=== PATIENT | female | born 1995 | race Caucasian/White ===

== ENCOUNTER 2022-09-03 08:59 | Outpatient (OUT) | payer OTHER, SELFPAY ==
--- NOTE | 2022-09-03 09:13 | XR_ITS ---
[address] [address] Patient Name: ELLIOTT RANDALL MRN: [id number] date: 1995 Sex: F Assigned Patient Location: [facility] Current Patient Location: [facility] Accession/Order Number: [id number] Exam Date: 09/03/2022 09:13 Report Date: 09/03/2022 13:08 At the request of: YUE SALAS Procedure: XR foot RT min 3V EXAM: XR foot RT min 3V HISTORY: RIGHT FOOT PAIN COMPARISON: None. TECHNIQUE: AP, oblique and lateral views right foot IMPRESSION: 1. No acute fracture or malalignment. 2. No articular erosions. 3. No periosteal reaction or osteolysis. 4. No significant degenerative change. Electronically authenticated by: KATHY LIU Date: 09/03/2022 13:08
== END 2022-09-03 09:00 | disposition home or self-care (01) ==
LOC: RAD 08:59
PROVIDERS: Visit Provider Physician Assistant
DX: M79.671 Pain in right foot (principal)
CPT/HCPCS: 73630

== ENCOUNTER 2022-09-24 13:36 | Outpatient (OUT) | payer OTHER, SELFPAY ==
--- NOTE | 2022-09-24 13:39 | XR_ITS ---
[address] [address] Patient Name: ELLIOTT RANDALL MRN: [id number] date: 1995 Sex: F Assigned Patient Location: [facility] Current Patient Location: [facility] Accession/Order Number: [id number] Exam Date: 09/24/2022 13:39 Report Date: 09/24/2022 19:00 At the request of: YUE SALAS Procedure: XR foot RT min 3V PROCEDURE: XR foot RT min 3V COMPARISON: 09/03/2022 HISTORY: RIGHT FOOT PAIN FINDINGS: BONES:No fracture, acute abnormality, or significant arthropathy. SOFT TISSUES:Negative. No visible soft tissue swelling. EFFUSION:None visible. OTHER: Negative. XR/XR foot RT min 3V IMPRESSION: No acute disease. Electronically authenticated by: INDIGO TITUS Date: 09/24/2022 19:00
== END 2022-09-24 13:37 | disposition home or self-care (01) ==
LOC: RAD 13:36
PROVIDERS: Visit Provider Physician Assistant
DX: M84.374S Stress fracture, right foot, sequela (principal)
CPT/HCPCS: 73630

== ENCOUNTER 2022-10-03 13:25 | Outpatient (OUT) | payer OTHER, SELFPAY ==
--- NOTE | 2022-10-03 14:15 | MR_ITS ---
The [address] [address] Patient Name: ELLIOTT RANDALL MRN: [id number] date: 1995 Sex: F Assigned Patient Location: MRI Current Patient Location: MRI Accession/Order Number: [id number] Exam Date: 10/03/2022 14:15 Report Date: 10/03/2022 18:39 At the request of: YUE SALAS Procedure: MR foot RT wo con EXAM: MR foot RT wo con HISTORY: Lateral foot pain COMPARISON: X-rays 09/24/2022 and 09/03/2022 TECHNIQUE: Multiplanar, multi sequential MRI sequences were performed FINDINGS: This study is limited as fluid sensitive sequencing was only performed in the sagittal projection per podiatry protocol. No fracture, dislocation, subluxation or osseous lesion. No bone marrow edema. Joint spaces are normal. No joint effusion, synovitis or erosion. The superficial subcutaneous soft tissues are free of edema, hematoma, mass or cyst. The articular cartilage exhibits no chondral or osteochondral irregularity. The visualized muscles exhibit no gross edema, hematoma, mass or cyst. The visualized tendons exhibit no discrete thickening, tear or edema.. The plantar aponeurosis exhibits no thickening, tear or edema. The sinus tarsi and Achilles tendon are normal. MR/MR foot RT wo con IMPRESSION: No visualized abnormality. Electronically authenticated by: INDIGO PATTERSON Date: 10/03/2022 18:39
== END 2022-10-03 13:26 | disposition home or self-care (01) ==
LOC: MRI 13:26
PROVIDERS: Visit Provider Physician Assistant
DX: M84.374S Stress fracture, right foot, sequela (principal)
CPT/HCPCS: 73718

== ENCOUNTER 2022-11-05 09:52 | Outpatient (OUT) | payer OTHER, SELFPAY ==
--- NOTE | 2022-11-05 | XR_ITS ---
The [address] [address] Patient Name: ELLIOTT RANDALL MRN: [id number] date: 1995 Sex: F Assigned Patient Location: [facility] Current Patient Location: [facility] Accession/Order Number: [id number] Exam Date: 11/05/2022 10:13 Report Date: 11/05/2022 12:27 At the request of: YUE SALAS Procedure: XR foot RT min 3V STUDY: XR foot RT min 3V, [id number] HISTORY: 4 WEEK FOLLOW UP FOR RIGHT FOOT PAIN COMPARISON: Right foot x-ray 09/24/2022 and right foot MRI 10/03/2022. FINDINGS: No acute fracture, dislocation, or suspicious osseous lesion. No significant joint degenerative changes. No abnormal periosteal reaction to suggest stress fracture. A small os peroneum is present. XR/XR foot RT min 3V IMPRESSION: No new or worsening osseous abnormality demonstrated. Electronically authenticated by: TRACY ELLIS Date: 11/05/2022 12:27
== END 2022-11-05 09:53 | disposition home or self-care (01) ==
LOC: RAD 09:52
PROVIDERS: Visit Provider Physician Assistant
DX: M77.41 Metatarsalgia, right foot (principal)
CPT/HCPCS: 73630

== ENCOUNTER 2023-04-08 20:01 | Outpatient (REF) | payer OTHER, SELFPAY ==
[2023-04-12 14:10] LABS: Age Gdln ACOG Testing Note (.); IGP, rfx Aptima HPV ASCU Note (.)
== END 2023-04-08 20:02 | disposition home or self-care (01) ==
LOC: LAB 20:01
PROVIDERS: Visit Provider Obstetrics & Gynecology
DX: Z01.419 Encounter for gynecological examination (general) (routine) without abnormal findings (principal)
CPT/HCPCS: G0145

== ENCOUNTER 2023-07-01 14:05 | Outpatient (OUT) | payer OTHER, SELFPAY ==
--- NOTE | 2023-07-01 | XR_ITS ---
The [address] [address] Patient Name: ELLIOTT RANDALL MRN: [id number] date: 1995 Sex: F Assigned Patient Location: Current Patient Location: Accession/Order Number: [id number] Exam Date: 07/01/2023 14:05 Report Date: 07/01/2023 16:21 At the request of: ERIKA EDMONDSON Procedure: XR foot LT min 3V PROCEDURE: XR foot LT min 3V COMPARISON: None. HISTORY: LEFT FOOT PAIN FINDINGS: BONES:No fracture, acute abnormality, or significant arthropathy. SOFT TISSUES:Negative. No visible soft tissue swelling. EFFUSION:None visible. OTHER: Negative. XR/XR foot LT min 3V IMPRESSION: No acute radiographic abnormality Electronically authenticated by: INDIGO TITUS Date: 07/01/2023 16:21
== END 2023-07-01 14:06 | disposition home or self-care (01) ==
LOC: EC 14:05
PROVIDERS: Visit Provider Podiatrist Foot & Ankle Surgery
DX: M79.672 Pain in left foot (principal)
CPT/HCPCS: 73630

== ENCOUNTER 2023-08-26 15:21 | Outpatient (OUT) | payer OTHER, SELFPAY ==
--- NOTE | 2023-08-26 | MR_ITS ---
The [address] [address] Patient Name: ELLIOTT RANDALL MRN: [id number] date: 1995 Sex: F Assigned Patient Location: MRI Current Patient Location: Accession/Order Number: [id number] Exam Date: 08/26/2023 15:50 Report Date: 08/28/2023 10:59 At the request of: YUE SALAS Procedure: MR foot LT wo con EXAM: MR foot LT wo con REASON FOR EXAM: Stress fracture Left foot. TECHNIQUE: Multiplanar, multisequence imaging of the left foot was performed without contrast COMPARISON: Radiographs 07/01/2023. FINDINGS: Study degraded by motion. The bone marrow signal is without acute displaced fracture. There is linear signal involving the second metatarsal proximal diaphysis (series 8/9, image 8), this could reflect a stress fracture. However, no significant marrow edema is identified and no significant periosteal edema identified. The midfoot appears congruent. Lisfranc ligament is intact. The visualized ankle tendons appear intact. No evidence of acute ligamentous injury identified. The plantar musculature demonstrates normal bulk and signal. Remaining soft tissues are unremarkable. MR/MR foot LT wo con IMPRESSION: 1. Linear signal involving the proximal second metatarsal base could reflect a stress fracture, although no significant edema is identified. 2. Intact Lisfranc ligament. Electronically authenticated by: SASHA LO Date: 08/28/2023 10:59
== END 2023-08-26 15:22 | disposition home or self-care (01) ==
LOC: MRI 15:22
PROVIDERS: Visit Provider Physician Assistant
DX: M84.375A Stress fracture, left foot, initial encounter for fracture (principal)
CPT/HCPCS: 73718

== ENCOUNTER 2024-05-07 06:40 | Outpatient (OUT) | payer OTHER, SELFPAY ==
--- OUTSIDE RECORDS SUMMARY | 2024-05-07 06:43 | XMS_ITS | CCD ---
Author Organization [facility] Care Team Providers Care Dollyman Name Role Phone JEREMY ., DR SANTORO Admitting Unavailable JEREMY ., DR SANTORO Attending Unavailable JENNIFER ., DR CORTEZ Primary Care Unavailable JEREMY ., DR SANTORO Consulting Unavailable NIKOLAY, DR MASOOD Narayanan Consulting Unavailable NATAPRAWIRA, WARD Admitting Unavailable NATAPRAWIRA, WARD Attending Unavailable JENNIFER ., DR CORTEZ Primary Care Unavailable NATAPRYAKOV, WARD Consulting Unavailable NATAPRAWIRA, WARD Admitting Unavailable NATADRIRA, WARD Attending Unavailable JENNIFER ., DR CORTEZ Primary Care Unavailable NATAPRAWIRA, WARD Consulting Unavailable Chino Bangura MD Primary Care Provider [phone] SARITA APPIAH Referring Unavailable SARITA APPIAH Attending Unavailable SARITA APPIAH Referring Unavailable Medications Completed/Discontinued Medications Medication Drug Class(es) Dates Sig (Normalized) Sig (Original) labetalol hydrochloride 200 mg oral tablet (2 sources) beta-Adrenergic Adonis End: 04-08-2023 labetalol (Normodyne) 200 MG tablet every 12 (twelve) hours. 0 04/08/2023 Discontinued meloxicam 15 mg oral tablet (2 sources) Nonsteroidal Anti-inflammatory Drug Start: 09-03-2022 End: 04-08-2023 take 1 tablet by mouth in the morning meloxicam (Mobic) 15 MG tablet Take 15 mg by mouth in the morning. 0 09/03/2022 04/08/2023 Discontinued Vit-DSS-Fe Fum-FA (PNV FE FUM/DOCUSATE/FOLIC ACID PO) (2 sources) End: 04-08-2023 Vit-DSS-Fe Fum-FA (PNV FE FUM/DOCUSATE/FOLI C ACID PO) PNV 0 04/08/2023 Discontinued venlafaxine 75 mg oral tablet (2 sources) Serotonin and Norepinephrine Reuptake Inhibitor End: 04-08-2023 venlafaxine (Effexor) 75 MG tablet 1 (one) time each day at the same time. 0 04/08/2023 Discontinued Problems Problem Classification Problem Date Documented Da te Episodic/Chronic Diabetes or abnormal glucose tolerance complicating ; childbirth; or the puerperium (4 sources) Abnormal glucose complicating ; Translations: [ABNORMAL GLUCOSE COMP ] Onset: 06-06-2022 Episodic Other non-traumatic joint disorders (2 sources) Pain in right knee; Translations: [Pain in joint, lower leg] 04-07-2024 Episodic Other and delivery including normal (4 sources) Encounter for supervision of normal , unspecified, second trimester; Translations: [ENC SUP NORMAL PREG UNS SECOND TRI] Onset: 05-28-2022 Episodic Other screening for suspected conditions (not mental disorders or infectious disease) (1 source) Encounter for screening for diabetes mellitus; Translations: [ENCOUNTER FOR SCREENING FOR DM] Onset: 06-01-2022 Episodic Results Test Name Value Interpretation Reference Range Facility XR Knee - right 3 [facility] Result: X-rays, permanently saved to the patient's record, are reviewed show 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 There is no acute fracture, dislocation, or OCD present. This is multiple views saved to the permanent record in the [place] office, AP, lateral and sunrise views. [facility] XR Knee - right 3 [facility] Study observation (narrative) [facility] IGP,APTIMA HPV,AGE GDLNon AGE GDLN ACOG TESTING Note . [facility] Comment on above: TESTS RESULT FLAG UN ITS REF RANGE LAB Clinician Provided Cytology Information Source.............Cervix No. of containers..01 ThinPrep Vial Age Algo ACOG Kimberly... FLAG LEGEND: L-Low Normal,H-High Normal,LL-Alert Low,HH-Alert High <-Panic Low,>-Panic High,A-Abnormal,AA-Critical Abnormal Performed at: 01 =G [address] [id number] Lisbet Rahman MD, IGP, RFX APTIMA HPV ASCU Note . [facility] Comment on above: TESTS RESULT FLAG U NITS REF RANGE LAB DIAGNOSIS: 02 NEGATIVE FOR INTRAEPITHELIAL LESION OR MALIGNANCY. Specimen adequacy: 02 Satisfactory for evaluation. No endocervical component is identified. Performed by: Derek Schreiber Denier Control Operator (ASC) . 02 Note: Note 02 The Pap smear is a screening test designed to aid in the detection of premalignant and malignant conditions of the uterine cervix. It is not a diagnostic procedure and should not be used as the sole means of detecting cervical cancer. Both false-positive and false-negative reports do occur. Test Methodology: Note 02 This liquid based ThinPrep(R) pap test was screened with the use of an image guided system. . 02 The HPV DNA reflex criteria were not met with this specimen result therefore, no HPV testing was performed. FLAG LEGEND: L-Low Normal,H-High Normal,LL-Alert Low,HH-Alert High <-Panic Low,>-Panic High,A-Abnormal,AA-Critical Abnormal Performed at: [address] [facility] [address] [id number] Lisbet Rahman MD, Performed at: =G - [facility] [address] [id number] Clinical Neuropsychologist: Lisbet Rahman MD, Phone: [phone] Performed at: - [facility] [address] [id number] Clinical Neuropsychologist: Lisbet Rahman MD, Phone: [phone] BRUSH-SPATULA CERVIX [facility] CBC AUTO DIFFon 07-20-2022 BASO # 0.1 103/ul Normal 0.0-0.1 [facility] Comment on above: Performed By: #### C BC #### [facility] [address] [place] [address] Dr. Gerardo Joshua Basophils/100 WBC (Bld) 0.5 % Normal 0.2-2.0 [facility] Comment on above: Performed By: #### C BC #### [facility] [address] [place] [address] Dr. Gerardo Joshua EO # 0.2 103/ul Normal 0.0-0.7 [facility] Comment on above: Performed By: #### C BC #### [facility] [address] [place] [address] Dr. Gerardo Joshua Eosinophils/100 WBC (Bld) 1.4 % Normal 0.9-7.0 [facility] Comment on above: Performed By: #### C BC #### [facility] [address] [place] [address] Dr. Gerardo Joshua Erythrocyte distribution width (RBC) [Ratio] 12.8 % Normal 11.0-15.0 [facility] Comment on above: Performed By: #### C BC #### [facility] [address] [place] [address] Dr. Gerardo Joshua Hematocrit (Bld) [Volume fraction] 37.3 % Normal 36.0-48.0 [facility] Comment on above: Performed By: #### C BC #### [facility] [address] [place] [address] Dr. Gerardo Joshua Hemoglobin (Bld) [Mass/Vol] 12.7 g/dL Normal 12.0-16.0 [facility] Comment on above: Performed By: #### C BC #### [facility] [address] [place] [address] Dr. Gerardo Joshua IG # 0.06 10e3/ul Critically high 0.00-0.03 [facility] Comment on above: Performed By: #### C BC #### [facility] [address] [place] [address] Dr. Gerardo Joshua IG % 0.5 % Normal 0.0-0.5 [facility] Comment on above: Performed By: #### C BC #### [facility] [address] [place] [address] Dr. Gerardo Joshua LYMPH # 2.3 103/ul Normal 1.2-3.8 [facility] Comment on above: Performed By: #### C BC #### [facility] [address] [place] [address] Dr. Gerardo Joshua Lymphocytes/100 WBC (Bld) 18.4 % Critically low 20.5-60.0 [facility] Comment on above: Performed By: #### C BC #### [facility] [address] [place] [address] Dr. Gerardo Joshua MANUAL DIFF REQ NO Normal [facility] Comment on above: Performed By: #### C BC #### [facility] [address] [place] [address] Dr. Gerardo Joshua MCH (RBC) [Entitic mass] 30.6 pg Normal 26.7-34.0 [facility] Comment on above: Performed By: #### C BC #### [facility] [address] [address] [address] Gerardo Joshua MCHC (RBC) [Mass/Vol] 34.0 g/dL Normal 29.9-35.2 [facility] Comment on above: Performed By: #### C BC #### [facility] [address] [address] [address] Gerardo Joshua MCV (RBC) [Entitic vol] 89.9 fL Normal 81.0-99.0 [facility] Comment on above: Performed By: #### C BC #### [facility] [address] [address] [address] Gerardo Joshua MONO # 0.9 103/ul Critically high 0.3-0.8 [facility] Comment on above: Performed By: #### C BC #### [facility] [address] [address] [address] Gerardo Joshua Monocytes/100 WBC (Bld) 7.3 % Normal 1.7-12.0 [facility] Comment on above: Performed By: #### C BC #### [facility] [address] [address] [address] Gerardo Joshua NEUT # 8.9 103/ul Critically high 1.4-6.5 [facility] Comment on above: Performed By: #### C BC #### [facility] [address] [address] [address] Gerardo Joshua Neutrophils/100 WBC (Bld) 71.9 % Normal 43.0-75.0 [facility] Comment on above: Performed By: #### C BC #### [facility] [address] [address] [address] Gerardo Joshua Platelet mean volume (Bld) [Entitic vol] 10.2 fL Normal 9.5-13.5 [facility] Comment on above: Performed By: #### C BC #### [facility] [address] [address] [address] Gerardo Joshua PLT 199 103/ul Normal 150-450 [facility] Comment on above: Performed By: #### C BC #### [facility] [address] [address] [address] Gerardo Joshua RBC 4.15 106/ul Critically low 4.20-5.40 [facility] Comment on above: Performed By: #### C BC #### [facility] [address] [address] [address] Gerardo Joshua WBC 12.4 103/ul Critically high 4.0-11.0 [facility] Comment on above: Performed By: #### C BC #### [facility] [address] [place] [address] Dr. Gerardo Joshua CBC AUTO DIFFon 07-19-2022 BASO # 0.0 103/ul Normal 0.0-0.1 [facility] Comment on above: Performed By: #### C BC #### [facility] [address] [place] [address] Dr. Gerardo Joshua Basophils/100 WBC (Bld) 0.4 % Normal 0.2-2.0 [facility] Comment on above: Performed By: #### C BC #### [facility] [address] [place] [address] Dr. Gerardo Joshua EO # 0.2 103/ul Normal 0.0-0.7 [facility] Comment on above: Performed By: #### C BC #### [facility] [address] [place] [address] Dr. Gerardo Joshua Eosinophils/100 WBC (Bld) 1.4 % Normal 0.9-7.0 [facility] Comment on above: Performed By: #### C BC #### [facility] [address] [place] [address] Dr. Gerardo Joshua Erythrocyte distribution width (RBC) [Ratio] 12.7 % Normal 11.0-15.0 [facility] Comment on above: Performed By: #### C BC #### [facility] [address] [place] [address] Dr. Gerardo Joshua Hematocrit (Bld) [Volume fraction] 41.6 % Normal 36.0-48.0 [facility] Comment on above: Performed By: #### C BC #### [facility] [address] [address] [address] Gerardo Joshua Hemoglobin (Bld) [Mass/Vol] 14.0 g/dL Normal 12.0-16.0 [facility] Comment on above: Performed By: #### C BC #### [facility] [address] [address] [address] Gerardo Joshua IG # 0.07 10e3/ul Critically high 0.00-0.03 [facility] Comment on above: Performed By: #### C BC #### [facility] [address] [address] [address] Gerardo Joshua IG % 0.7 % Critically high 0.0-0.5 [facility] Comment on above: Performed By: #### C BC #### [facility] [address] [address] [address] Gerardo Joshua LYMPH # 2.1 103/ul Normal 1.2-3.8 [facility] Comment on above: Performed By: #### C BC #### [facility] [address] [address] [address] Gerardo Joshua Lymphocytes/100 WBC (Bld) 19.2 % Critically low 20.5-60.0 [facility] Comment on above: Performed By: #### C BC #### [facility] [address] [address] [address] Gerardo Joshua MANUAL DIFF REQ NO Normal [facility] Comment on above: Performed By: #### C BC #### [facility] [address] [address] [address] Gerardo Joshua MCH (RBC) [Entitic mass] 30.0 pg Normal 26.7-34.0 [facility] Comment on above: Performed By: #### C BC #### [facility] [address] [address] [address] Gerardo Joshua MCHC (RBC) [Mass/Vol] 33.7 g/dL Normal 29.9-35.2 [facility] Comment on above: Performed By: #### C BC #### [facility] [address] [address] [address] Gerardo Joshua MCV (RBC) [Entitic vol] 89.3 fL Normal 81.0-99.0 [facility] Comment on above: Performed By: #### C BC #### [facility] [address] [address] [address] Gerardo Joshua MONO # 0.7 103/ul Normal 0.3-0.8 [facility] Comment on above: Performed By: #### C BC #### [facility] [address] [address] [address] Gerardo Joshua Monocytes/100 WBC (Bld) 6.8 % Normal 1.7-12.0 [facility] Comment on above: Performed By: #### C BC #### [facility] [address] [place] [address] Dr. Gerardo Joshua NEUT # 7.7 103/ul Critically high 1.4-6.5 [facility] Comment on above: Performed By: #### C BC #### [facility] [address] [place] [address] Dr. Gerardo Joshua Neutrophils/100 WBC (Bld) 71.5 % Normal 43.0-75.0 [facility] Comment on above: Performed By: #### C BC #### [facility] [address] [place] [address] Dr. Gerardo Joshua Platelet mean volume (Bld) [Entitic vol] 10.0 fL Normal 9.5-13.5 [facility] Comment on above: Performed By: #### C BC #### [facility] [address] [place] [address] Dr. Gerardo Joshua PLT 229 103/ul Normal 150-450 [facility] Comment on above: Performed By: #### C BC #### [facility] [address] [address] [address] Gerardo Joshua RBC 4.66 106/ul Normal 4.20-5.40 [facility] Comment on above: Performed By: #### C BC #### [facility] [address] [place] [address] Dr. Gerardo Joshua WBC 10.7 103/ul Normal 4.0-11.0 [facility] Comment on above: Performed By: #### C BC #### [facility] [address] [place] [address] Dr. Gerardo Joshua DRUG SCREEN RAPID (URINE)on 07-19-2022 AMP Negative Normal NEGATIVE [facility] Comment on above: Performed By: #### D RUGRPD #### [facility] [address] [place] [address] Dr. Gerardo Joshua BAR Negative Normal NEGATIVE [facility] Comment on above: Performed By: #### D RUGRPD #### [facility] [address] [place] [address] Dr. Gerardo Joshua BUP Negative Normal NEGATIVE [facility] Comment on above: Performed By: #### D RUGRPD #### [facility] [address] [place] [address] Dr. Gerardo Joshua BZO Negative Normal NEGATIVE [facility] Comment on above: Performed By: #### D RUGRPD #### [facility] [address] [place] [address] Dr. Gerardo Joshua ABBEY Negative Normal NEGATIVE [facility] Comment on above: Performed By: #### D RUGRPD #### [facility] [address] [place] [address] Dr. eGrardo Joshua CUT-OFFS SEE BELOW Normal [facility] Comment on above: Result Comment: AMP (Amphetamine): 500ng/mL, BAR (Barbituates): 200 ng/mL, BZO (Benzodiazepines): 150 ng/mL, BUP (Buprenorphine): 10 ng/mL, ABBEY (Cocaine): 150 ng/mL, mAMP (Methamphetamine): 500 ng/mL, MTD (Methadone): 200 ng/mL, OPI (Opiates): 100 ng/mL, OXY (Oxycodone): 100 ng/mL, PCP (Phencyclidine): 25 ng/mL, PPX (Propoxyphene): 300 ng/mL, THC (Cannabinoids): 50 ng/mL, TCA (Trycyclic Antidepressants): 300 ng/mL Performed By: #### D RUGRPD #### [facility] [address] [place] [address] Dr. Gerardo Joshua DRUG CUT HEADER DRUG CLASS TEST SYSTEM CUT-OFF CONCENTRATIONS ARE FOLLOWS: Normal [facility] Comment on above: Performed By: #### D RUGRPD #### [facility] [address] [place] [address] Dr. Gerardo Joshua mAMP Negative Normal NEGATIVE [facility] Comment on above: Performed By: #### D RUGRPD #### [facility] [address] [place] [address] Dr. Gerardo Joshua MTD Negative Normal NEGATIVE [facility] Comment on above: Performed By: #### D RUGRPD #### [facility] [address] [place] [address] Dr. Gerardo Josuha OPI Negative Normal NEGATIVE [facility] Comment on above: Performed By: #### D RUGRPD #### [facility] [address] [place] [address] Dr. Gerardo Joshua OXY Negative Normal NEGATIVE [facility] Comment on above: Performed By: #### D RUGRPD #### [facility] [address] [place] [address] Dr. Gerardo Joshua PCP Negative Normal NEGATIVE [facility] Comment on above: Performed By: #### D RUGRPD #### [facility] [address] [place] [address] Dr. Gerardo Joshua PPX Negative Normal NEGATIVE [facility] Comment on above: Performed By: #### D RUGRPD #### [facility] [address] [place] [address] Dr. Gerardo Joshua TCA Negative Normal NEGATIVE [facility] Comment on above: Performed By: #### D RUGRPD #### [facility] [address] [place] [address] Dr. Gerardo Joshua THC Negative Normal NEGATIVE [facility] Comment on above: Performed By: #### D RUGRPD #### [facility] [address] [place] [address] Dr. Gerardo Joshua TYPE AND SCREENon 07-19-2022 TYPE AND SCREEN Negative Normal [facility] Comment on above: Performed By: #### T NS #### [facility] [address] [address] [address] Gerardo Joshua US PREG PLACENTAon 3 US PREG PLACENTA EXAMINATION: US PREG PLACENTA HISTORY: Bleeding ; vaginal bleeding with contractions COMPARISON: No relevant comparison available. FINDINGS: PLACENTA: Posterior, grade 1, without abruption or subchorionic hematoma. Lower margin could not be identified. CERVIX LENGTH: Not evaluated. HEART RATE: 141 bpm OTHER: Normal amniotic fluid volume. IMPRESSION: 1. Posterior placenta without appreciable abruption or subchorionic hematoma. 2. Lower margin of placenta and internal cervical os could not be identified. Electronically authenticated by: MASOOD LINK Date: 2022-07-19 07:16 Normal [facility] GTT 3 HR PREGon 06-06-2022 Glucose [Mass/Vol] 86 mg/dL Normal 74-106 [facility] Comment on above: Performed By: #### G TT3P #### [facility] [address] [address] [address] Gerardo Joshua Glucose [Mass/Vol] 159 mg/dL Normal [facility] Comment on above: Performed By: #### G TT3P #### [facility] [address] [address] [address] Gerardo Joshua Glucose [Mass/Vol] 137 mg/dL Normal [facility] Comment on above: Performed By: #### G TT3P #### [facility] [address] [address] [address] Gerardo Joshua Glucose [Mass/Vol] 53 mg/dL Normal [facility] Comment on above: Performed By: #### G TT3P #### [facility] [address] [address] [address] Gerardo Joshua CBC AUTO DIFFon 05-28-2022 BASO # 0.0 103/ul Normal 0.0-0.1 [facility] Comment on above: Performed By: #### C BC #### [facility] [address] [address] [address] Gerardo Joshua Basophils/100 WBC (Bld) 0.5 % Normal 0.2-2.0 [facility] Comment on above: Performed By: #### C BC #### [facility] [address] [place] [address] Dr. Gerardo Joshua EO # 0.2 103/ul Normal 0.0-0.7 [facility] Comment on above: Performed By: #### C BC #### [facility] [address] [place] [address] Dr. Gerardo Joshua Eosinophils/100 WBC (Bld) 1.9 % Normal 0.9-7.0 [facility] Comment on above: Performed By: #### C BC #### [facility] [address] [place] [address] Dr. Gerardo Joshua Erythrocyte distribution width (RBC) [Ratio] 13.2 % Normal 11.0-15.0 [facility] Comment on above: Performed By: #### C BC #### [facility] [address] [place] [address] Dr. Gerardo Joshua Hematocrit (Bld) [Volume fraction] 36.1 % Normal 36.0-48.0 [facility] Comment on above: Performed By: #### C BC #### [facility] [address] [place] [address] Dr. Gerardo Joshua Hemoglobin (Bld) [Mass/Vol] 12.1 g/dL Normal 12.0-16.0 [facility] Comment on above: Performed By: #### C BC #### [facility] [address] [place] [address] Dr. Gerardo Joshua IG # 0.03 10e3/ul Normal 0.00-0.03 [facility] Comment on above: Performed By: #### C BC #### [facility] [address] [place] [address] Dr. Gerardo Joshua IG % 0.4 % Normal 0.0-0.5 [facility] Comment on above: Performed By: #### C BC #### [facility] [address] [place] [address] Dr. Gerardo Joshua LYMPH # 1.6 103/ul Normal 1.2-3.8 [facility] Comment on above: Performed By: #### C BC #### [facility] [address] [place] [address] Dr. Gerardo Joshua Lymphocytes/100 WBC (Bld) 20.1 % Critically low 20.5-60.0 [facility] Comment on above: Performed By: #### C BC #### [facility] [address] [place] [address] Dr. Gerardo Joshua MANUAL DIFF REQ NO Normal [facility] Comment on above: Performed By: #### C BC #### [facility] [address] [place] [address] Dr. Gerardo Joshua MCH (RBC) [Entitic mass] 30.0 pg Normal 26.7-34.0 [facility] Comment on above: Performed By: #### C BC #### [facility] [address] [place] [address] Dr. Gerardo Joshua MCHC (RBC) [Mass/Vol] 33.5 g/dL Normal 29.9-35.2 [facility] Comment on above: Performed By: #### C BC #### [facility] [address] [place] [address] Dr. Gerardo Joshua MCV (RBC) [Entitic vol] 89.6 fL Normal 81.0-99.0 [facility] Comment on above: Performed By: #### C BC #### [facility] [address] [place] [address] Dr. Gerardo Joshua MONO # 0.5 103/ul Normal 0.3-0.8 [facility] Comment on above: Performed By: #### C BC #### [facility] [address] [place] [address] Dr. Gerardo Joshua Monocytes/100 WBC (Bld) 6.8 % Normal 1.7-12.0 [facility] Comment on above: Performed By: #### C BC #### [facility] [address] [place] [address] Dr. Gerardo Joshua NEUT # 5.4 103/ul Normal 1.4-6.5 [facility] Comment on above: Performed By: #### C BC #### [facility] [address] [address] [address] Gerardo Joshua Neutrophils/100 WBC (Bld) 70.3 % Normal 43.0-75.0 [facility] Comment on above: Performed By: #### C BC #### [facility] [address] [address] [address] Gerardo Joshua Platelet mean volume (Bld) [Entitic vol] 9.3 fL Critically low 9.5-13.5 [facility] Comment on above: Performed By: #### C BC #### [facility] [address] [address] [address] Gerardo Joshua PLT 230 103/ul Normal 150-450 [facility] Comment on above: Performed By: #### C BC #### [facility] [address] [address] [address] Gerardo Joshua RBC 4.03 106/ul Critically low 4.20-5.40 [facility] Comment on above: Performed By: #### C BC #### [facility] [address] [place], [place] [address] Dr. Gerardo Joshua WBC 7.7 103/ul Normal 4.0-11.0 [facility] Comment on above: Performed By: #### C BC #### [facility] [address] [address] [address] Gerardo Joshua GLUCOSE - 1HRon 05-28-2022 Glucose [Mass/Vol] 154 mg/dL Critically high 74-106 [facility] Comment on above: Performed By: #### G LU1HR #### [facility] [address] [address] [address] Gerardo Joshua Complete Blood Count Auto Di ffon 12-05-2020 Basophils (Bld) [#/Vol] 0.1 10*3/uL Normal 0.0-0.2 [facility] Comment on above: Order Comment: Name Collection Type:: Clean-Voided Midstream Result Comment: PERF ORMED BY: [facility] [address] [place] [address] PATHOLOGIST TRIMMER SORTER FIDENCIO LOW M.D. Performed By: #### A DDONUAPLUS OBUDS #### [place] [address] [place] Basophils/100 WBC (Bld) 0.5 % Normal . [facility] Comment on above: Order Comment: Name Collection Type:: Clean-Voided Midstream Performed By: #### A DDONUAPLUS OBUDS #### [address] Eosinophils (Bld) [#/Vol] 0.1 10*3/uL Normal 0.0-0.45 [facility] Comment on above: Order Comment: Name Collection Type:: Clean-Voided Midstream Performed By: #### A DDONUAPLUS OBUDS #### [address] Eosinophils/100 WBC (Bld) 0.9 % Normal . [facility] Comment on above: Order Comment: Name Collection Type:: Clean-Voided Midstream Performed By: #### A DDONUAPLUS OBUDS #### [address] Erythrocyte distribution width (RBC) [Ratio] 13.1 % Normal 11.9-15.3 [facility] Comment on above: Order Comment: Name Collection Type:: Clean-Voided Midstream Performed By: #### A DDONUAISHA OBUDS #### [address] Hematocrit (Bld) [Volume fraction] 33.9 % Low 34.0-46.4 [facility] Comment on above: Order Comment: Name Collection Type:: Clean-Voided Midstream Performed By: #### A DDONUAPLUS OBUDS #### [address] Hemoglobin (Bld) [Mass/Vol] 11.8 g/dL Normal 11.8-15.4 [facility] Comment on above: Order Comment: Name Collection Type:: Clean-Voided Midstream Performed By: #### A DDONUAPLUS OBUDS #### [address] Lymphocytes (Bld) [#/Vol] 1.5 10*3/uL Normal 1.00-4.8 [facility] Comment on above: Order Comment: Name Collection Type:: Clean-Voided Midstream Performed By: #### A DDNIKHIL OBUDS #### [address] Lymphocytes/100 WBC (Bld) 13.5 % Normal . [facility] Comment on above: Order Comment: Name Collection Type:: Clean-Voided Midstream Performed By: #### A DDONPEDRITO OBUDS #### [address] MCH (RBC) [Entitic mass] 31.9 pg Normal 24.7-34.3 [facility] Comment on above: Order Comment: Name Collection Type:: Clean-Voided Midstream Performed By: #### A DDONUAISHA OBUDS #### [address] MCV (RBC) [Entitic vol] 91.6 fL Normal 80-100 [facility] Comment on above: Order Comment: Name Collection Type:: Clean-Voided Midstream Performed By: #### A DDONPEDRITO OBUDS #### [address] Mean Corpuscular HGB Conc 34.9 g/dL Normal 32.0-35.0 [facility] Comment on above: Order Comment: Name Collection Type:: Clean-Voided Midstream Performed By: #### A DDONUAPLUS OBUDS #### [address] Monocytes (Bld) [#/Vol] 0.7 10*3/uL Normal 0.0-0.8 [facility] Comment on above: Order Comment: Name Collection Type:: Clean-Voided Midstream Performed By: #### A DDONUAPLUS OBUDS #### [place] [address] [place] Monocytes/100 WBC (Bld) 6.2 % Normal . [facility] Comment on above: Order Comment: Name Collection Type:: Clean-Voided Midstream Performed By: #### A DDONUAPLUS, OBUDS #### [place] [address] [place] Neutrophils (Bld) [#/Vol] 9.0 10*3/uL High 1.8-7.7 [facility] Comment on above: Order Comment: Name Collection Type:: Clean-Voided Midstream Performed By: #### A DDONUAPLUS, OBUDS #### [place] [address] [place] Neutrophils/100 WBC (Bld) 78.9 % Normal . [facility] Comment on above: Order Comment: Name Collection Type:: Clean-Voided Midstream Performed By: #### A DDONUAPLUS, OBUDS #### [place] [address] [place] Nucleated RBC/100 WBC (Bld) [Ratio] 0.0 % Normal 0-0.5 [facility] Comment on above: Order Comment: Name Collection Type:: Clean-Voided Midstream Performed By: #### A DDONUAPLUS, OBUDS #### [address] Platelet mean volume (Bld) [Entitic vol] 10.1 fL Normal 6.3-10.7 [facility] Comment on above: Order Comment: Name Collection Type:: Clean-Voided Midstream Performed By: #### A DDONUAPLUS, OBUDS #### [place] [address] [place] Platelets (Bld) [#/Vol] 140 10*3/uL Low 150-450 [facility] Comment on above: Order Comment: Name Collection Type:: Clean-Voided Midstream Performed By: #### A DDONUAPLUS, OBUDS #### [place] [address] [place] RBC (Bld) [#/Vol] 3.70 10*6/uL Normal 3.60-5.00 [facility] Comment on above: Order Comment: Name Collection Type:: Clean-Voided Midstream Performed By: #### A DDONUAPLUS, OBUDS #### [facility] [address] WBC (Bld) [#/Vol] 11.5 10*3/uL High 4.5-11.0 [facility] Comment on above: Order Comment: Name Collection Type:: Clean-Voided Midstream Performed By: #### A DDONUAPLUS, OBUDS #### [facility] [address] ABO/RH Typeon 12-04-2020 ABO and Rh group Nom (Bld) Blood group A Rh(D) positive Normal [facility] Comment on above: Result Comment: PERF ORMED BY: [place] [address] PATHOLOGIST TRIMMER SORTER FIDENCIO LOW M.D. COVID-19 Antigenon 1 COVID-19 Antigen Healthcare Worker?: N Pernell Reference Pernell Reference Negative SARS-CoV+SARS-CoV-2 (COVID-19) Ag [Presence] in Respiratory specimen by Rapid immunoassay Negative for SARS Antigen by NASH COVID19 Blank Space Pernell Disclaimer Negative results, from patients with symptom Pernell Disclaimer onset beyond five days, should be treated as Pernell Disclaimer presumptive and confirmation with a molecular Pernell Disclaimer assay, if necessary, for patient management, Pernell Disclaimer may be performed. Negative results do not rule Pernell Disclaimer out COVID-19 and should not be used as the sole Pernell Disclaimer basis for treatment or patient management Pernell Disclaimer decisions, including infection control decisions. Pernell Disclaimer Negative results should be considered in the Pernell Disclaimer context of a patient's recent exposures, history Pernell Disclaimer and the presence of clinical signs and symptoms Pernell Disclaimer consistent with COVID-19. COVID19 Blank Space Pernell Disclaimer The Pernell SARS Antigen NASH does not differentiate Pernell Disclaimer between SARS-CoV and SARS-CoV-2. COVID19 Blank Space Pernell Disclaimer This test was developed and its performance Pernell Disclaimer characteristic determined by [employer] and Pernell Disclaimer validated at [facility]. This Pernell Disclaimer test has not been FDA cleared or approved. This Pernell Disclaimer test has been authorized by FDA under an Emergency Use Pernell Disclaimer Authorization (EUA). This test has been validated Pernell Disclaimer in accordance with the FDA's Guidance Document (Policy Pernell Disclaimer for Diagnostics Testing in Laboratories Certified to Pernell Disclaimer Perform High Complexity Testing under CLIA prior to Pernell Disclaimer Emergency Use Authorization for Coronavirus Pernell Disclaimer during the Public Health Emergency) Pernell Disclaimer issued on June 10, 2019. This test is only authorized Pernell Disclaimer for the duration of time the declaration that Pernell Disclaimer circumstances exist justifying the authorization of Pernell Disclaimer the emergency use of in vitro diagnostic tests for Pernell Disclaimer detection of SARS-CoV-2 virus and/or diagnosis of Pernell Disclaimer COVID-19 infection under section 564(b)(1) of the Pernell Disclaimer Act, 21 U.S.C. 360bbb-3(b)(1), unless the Pernell Disclaimer authorization is terminated or revoked sooner. PERFORMED BY: [facility] [address] PATHOLOGIST TRIMMER SORTER FIDENCIO LOW M.D. Normal [facility] Comment on above: Performed By: #### S ANNA COLMENARES #### [address] Complete Blood Count Auto Di ffon 12-04-2020 Basophils (Bld) [#/Vol] 0.0 10*3/uL Normal 0.0-0.2 [facility] Comment on above: Result Comment: PERF ORMED BY: [place] [address] PATHOLOGIST TRIMMER SORTER FIDENCIO LOW M.D. Performed By: #### C BC #### [address] Basophils/100 WBC (Bld) 0.4 % Normal . [facility] Comment on above: Performed By: #### C BC #### [address] Eosinophils (Bld) [#/Vol] 0.1 10*3/uL Normal 0.0-0.45 [facility] Comment on above: Performed By: #### C BC #### [address] Eosinophils/100 WBC (Bld) 0.7 % Normal . [facility] Comment on above: Performed By: #### C BC #### [address] Erythrocyte distribution width (RBC) [Ratio] 13.1 % Normal 11.9-15.3 [facility] Comment on above: Performed By: #### C BC #### [address] Hematocrit (Bld) [Volume fraction] 37.4 % Normal 34.0-46.4 [facility] Comment on above: Performed By: #### C BC #### [address] Hemoglobin (Bld) [Mass/Vol] 13.1 g/dL Normal 11.8-15.4 [facility] Comment on above: Performed By: #### C BC #### [facility] [address] Lymphocytes (Bld) [#/Vol] 2.0 10*3/uL Normal 1.00-4.8 [facility] Comment on above: Performed By: #### C BC #### [facility] [address] Lymphocytes/100 WBC (Bld) 19.4 % Normal . [facility] Comment on above: Performed By: #### C BC #### [address] MCH (RBC) [Entitic mass] 31.7 pg Normal 24.7-34.3 [facility] Comment on above: Performed By: #### C BC #### [address] MCV (RBC) [Entitic vol] 90.4 fL Normal 80-100 [facility] Comment on above: Performed By: #### C BC #### [address] Mean Corpuscular HGB Conc 35.1 g/dL High 32.0-35.0 [facility] Comment on above: Performed By: #### C BC #### [address] Monocytes (Bld) [#/Vol] 0.8 10*3/uL Normal 0.0-0.8 [facility] Comment on above: Performed By: #### C BC #### [place] [address] [place] Monocytes/100 WBC (Bld) 8.3 % Normal . [facility] Comment on above: Performed By: #### C BC #### [address] Neutrophils (Bld) [#/Vol] 7.3 10*3/uL Normal 1.8-7.7 [facility] Comment on above: Performed By: #### C BC #### [facility] [address] [id number] [facility] Neutrophils/100 WBC (Bld) 71.2 % Normal . [facility] Comment on above: Performed By: #### C BC #### [facility] [address] [id number] [facility] Nucleated RBC/100 WBC (Bld) [Ratio] 0.1 % Normal 0-0.5 [facility] Comment on above: Performed By: #### C BC #### [facility] [address] Platelet mean volume (Bld) [Entitic vol] 10.0 fL Normal 6.3-10.7 [facility] Comment on above: Performed By: #### C BC #### [facility] [address] Platelets (Bld) [#/Vol] 155 10*3/uL Normal 150-450 [facility] Comment on above: Performed By: #### C BC #### [facility] [address] RBC (Bld) [#/Vol] 4.13 10*6/uL Normal 3.60-5.00 [facility] Comment on above: Performed By: #### C BC #### [facility] [address] WBC (Bld) [#/Vol] 10.2 10*3/uL Normal 4.5-11.0 [facility] Comment on above: Performed By: #### C BC #### [facility] [address] Comprehensive Metabolic Pane charan 12-04-2020 Albumin [Mass/Vol] 2.6 g/dL Low 3.2-5.5 [facility] Comment on above: Performed By: #### C MP #### [facility] [address] [id number] [facility] Albumin/Globulin [Mass ratio] 0.9 {ratio} Normal [facility] Comment on above: Performed By: #### C MP #### [address] ALP [Catalytic activity/Vol] 129 U/L High 32-92 [facility] Comment on above: Performed By: #### C MP #### [address] ALT [Catalytic activity/Vol] 54 U/L Normal 10-60 [facility] Comment on above: Performed By: #### C MP #### [address] AST [Catalytic activity/Vol] 36 U/L Normal 10-42 [facility] Comment on above: Performed By: #### C MP #### [address] Bilirubin [Mass/Vol] 0.5 mg/dL Normal 0.3-1.2 [facility] Comment on above: Performed By: #### C MP #### [address] Calcium [Mass/Vol] 8.8 mg/dL Normal 8.2-10.2 [facility] Comment on above: Performed By: #### C MP #### [address] Chloride [Moles/Vol] 108 mmol/L Normal 95-114 [facility] Comment on above: Performed By: #### C MP #### [address] CO2 [Moles/Vol] 20.4 mmol/L Low 22.0-30.0 [facility] Comment on above: Performed By: #### C MP #### [address] Creatinine [Mass/Vol] 0.81 mg/dL Normal 0.44-1.03 [facility] Comment on above: Performed By: #### C MP #### [address] Creatinine Clr Calc Pharmacy 97.66 Normal [facility] Comment on above: Result Comment: PERF ORMED BY: [place] [address] PATHOLOGIST TRIMMER SORTER FIDENCIO LOW M.D. Performed By: #### C MP #### [address] Estimated GFR ( Mady > 60 Normal [facility] Comment on above: Result Comment: GFR estimated reference range: According to KDOQI guidelines, <60 ml/min/1.73m2 is sufficient to diagnose a patient with chronic kidney disease. Performed By: #### C MP #### [address] Estimated GFR (Non- Am > 60 Normal [facility] Comment on above: Performed By: #### C MP #### [address] Globulin (S) [Mass/Vol] 2.8 g/dL Normal [facility] Comment on above: Performed By: #### C MP #### [address] Glucose [Mass/Vol] 86 mg/dL Normal 70-100 [facility] Comment on above: Result Comment: [place] Glucose Reference Range is dependent on time and content of last meal. Glucose of more than 200 mg/dL in a nonstressed, ambulatory subject supports the diagnosis of Diabetes Mellitus. ADA recommended reference range Performed By: #### C MP #### [place] [address] [place] Potassium [Moles/Vol] 3.4 mmol/L Low 3.5-5.1 [facility] Comment on above: Performed By: #### C MP #### [place] [address] [place] Protein [Mass/Vol] 5.4 g/dL Low 6.1-7.9 [facility] Comment on above: Performed By: #### C MP #### [address] Sodium [Moles/Vol] 138 mmol/L Normal 136-146 [facility] Comment on above: Performed By: #### C MP #### [facility] [address] Urea nitrogen [Mass/Vol] 9 mg/dL Normal 9-23 [facility] Comment on above: Performed By: #### C MP #### [facility] [address] [id number] [place] Charan 12-04-2020 L - -------- Specimen: [id number] Received: 12/04/20 Status: ADAN Jane Num: [id number] Spec Type: Surgical Subm Dr: Gwen Jhaveri DO Tissues: A Placenta - 3rd Trimester (Greater than 28 weeks) (PLACENTA AND CORD) Procedures: HE Stain/6, Gross/Micro L5 -------- Patient Age/Sex Location Account Attending Physician -------- Lottie Childress 25/F 3S [id number] Yonis Augustin DO -------- SPEC NUM: [id number] RECD: 12/04/20 STATUS: ADAN LARA NUM: [id number] CLAUDINE: 12/04/20- SUBM DR: Gwen Jhaveri DO ENTERED: 12/04/20-[address] [facility] [address]: GRIS TYPE: Surgical DEPT: S ENTERED BY: [id number] RECV BY: [id number] ORDERED: HE Stain/6, Gross/Micro L5 ORDERED: HE Stain/6, Gross/Micro L5 Pathological Diagnosis Placenta and cord, vaginal delivery: - Mature reynoso placenta (weight: 334 g) with three-vessel umbilical cord - Placental membranes showing rare scattered pigment laden macrophages - Placental disc showing intervillous and subchorionic fibrin deposition, and focal recent infarct Clinical Information 36 weeks 3 day, hypertension Gross Description Received fresh labeled with the patient's name, number and placenta and cord is an 18.5 x 14.7 x 2 cm slightly ovoid reynoso placenta. The marginally inserted lazcano-pink, thin, translucent membranes show point of rupture 3.3 cm to the disc edge. Eccentrically located, 2 cm to the disc edge is a 15 cm in length x 3.2 cm in diameter markedly edematous, loosely coiled trivascular umbilical cord. The surface is purple and well vascularized. The maternal surface is intact and complete with no obvious missing cotyledons. The placenta is 334 g after removal of the umbilical cord and membranes. Sectioning reveals a 0.5 cm lazcano- irizarry area of discoloration. This area of discoloration is greater than 1.5 cm to the disc edge. An additional 1.4 cm lazcano to pink and focally laminated lesion is identified at the periphery. These lesions comprise less than 5% of the disc volume. Also received within the specimen container is a 5 x 4 x 1.5 cm aggregate of red gelatinous blood clot. Show Card Letterer sections are submitted in 6 cassettes as follows: A1 - end of the umbilical cord and membrane roll A2 - Maternal end of the umbilical cord and membrane roll -------- Specimen: [id number] Received: 12/04/20 Status: ADAN Lara Num: [id number] Spec Type: Surgical Subm Dr: Gwen Jhaveri DO Tissues: A Placenta - 3rd Trimester (Greater than 28 weeks) (PLACENTA AND CORD) Procedures: KAREN Stain/6, Gross/Micro L5 -------- Patient: Lottie Childress [id number] (Continued) -------- Specimen: [id number] Received: 12/04/20 (Continued) Gross Description (Continued) Signed (signature on file) Fidencio Low MD 12/07/20 1714 -------- Specimen: [id number] Received: 12/04/20 Status: ADAN Lara Num: [id number] Spec Type: Surgical Subm Dr: Gwen Jhaveri DO Tissues: A Placenta - 3rd Trimester (Greater than 28 weeks) (PLACENTA AND CORD) Procedures: HE Stain/6, Gross/Micro L5 -------- Patient: Lottie Childress [id number] (Continued) -------- Specimen: [id number] Received: 12/04/20 (Continued) Gross Description (Continued) A3 - Central placental disc A4 - Peripheral placental disc A5 - Edematous umbilical cord A6 - Lesions (YELITZA/JS) Microscopic Description Six glass slides with H E stained material have been examined. The microscopic findings support the above pathologic diagnosis. [id number] -------- -------- Specimen: [id number] Received: 12/04/20 Status: ADAN Lara Num: [id number] Spec Type: Surgical Subm Dr: Gwen Jhaveri DO Tissues: A Placenta - 3rd Trimester (Greater than 28 weeks) (PLACENTA AND CORD) Procedures: HE Stain/6, Gross/Micro L5 -------- (more content not included)... Normal [facility] Protein Creat Ratio Ur Rando mon 12-04-2020 Creatinine, Urine (Random) 82.8 mg/dL Normal [facility] Comment on above: Result Comment: No r eference range established Performed By: #### P ROCRERAT #### [address] Protein (U) [Mass/Vol] 354 mg/dL High 0-9 [facility] Comment on above: Performed By: #### P ROCRERAT #### [facility] [address] [place] [address] Urine Protein/Creatinine Ratio 4275 mg/g{Cre} High 0-200 [facility] Comment on above: Result Comment: PERF ORMED BY: [place] [address] PATHOLOGIST TRIMMER SORTER FIDENCIO LOW M.D. Performed By: #### P ROCRERAT #### [address] RPR w/rfx to Quant TP Abson 12-04-2020 RPR, Rfx Quant RPR Non-Reactive Normal Non Reactive [facility] Comment on above: Result Comment: Perf ormed at: - [facility] [address], [place], [place] [id number] Clinical Neuropsychologist: Andre Toledo PhD, Phone: [phone] PERFORMED BY: [place] [address] PATHOLOGIST TRIMMER SORTER FIDENCIO LOW M.D. Performed By: #### A DDONUAPLUS, OBUDS #### [address] Pernell Ag Negativeon 12-05-19 Pernell Ag Negative Negative Normal Negative [facility] Comment on above: Result Comment: This is a duplicate Pernell SARS Antigen (NASH) result to be used for statistical tracking purpose only. PERFORMED BY: [place] [address] PATHOLOGIST TRIMMER SORTER FIDENCIO LOW M.D. Performed By: #### S OFELAINE, COVID-19 PERNELL #### [address] Complete Blood Count Auto Di ffon 12-03-2020 Basophils (Bld) [#/Vol] 0.1 10*3/uL Normal 0.0-0.2 [facility] Comment on above: Result Comment: PERF ORMED BY: [place] [address] PATHOLOGIST TRIMMER SORTER FIDENCIO LOW M.D. Performed By: #### C BC #### [place] [address] [place] Basophils/100 WBC (Bld) 0.8 % Normal . [facility] Comment on above: Performed By: #### C BC #### [place] [address] [place] Eosinophils (Bld) [#/Vol] 0.2 10*3/uL Normal 0.0-0.45 [facility] Comment on above: Performed By: #### C BC #### [place] [address] [place] Eosinophils/100 WBC (Bld) 1.5 % Normal . [facility] Comment on above: Performed By: #### C BC #### [address] Erythrocyte distribution width (RBC) [Ratio] 12.8 % Normal 11.9-15.3 [facility] Comment on above: Performed By: #### C BC #### [address] Hematocrit (Bld) [Volume fraction] 39.0 % Normal 34.0-46.4 [facility] Comment on above: Performed By: #### C BC #### [address] Hemoglobin (Bld) [Mass/Vol] 13.7 g/dL Normal 11.8-15.4 [facility] Comment on above: Performed By: #### C BC #### [address] Lymphocytes (Bld) [#/Vol] 1.7 10*3/uL Normal 1.00-4.8 [facility] Comment on above: Performed By: #### C BC #### [address] Lymphocytes/100 WBC (Bld) 16.5 % Normal . [facility] Comment on above: Performed By: #### C BC #### [address] MCH (RBC) [Entitic mass] 31.8 pg Normal 24.7-34.3 [facility] Comment on above: Performed By: #### C BC #### [address] MCV (RBC) [Entitic vol] 90.3 fL Normal 80-100 [facility] Comment on above: Performed By: #### C BC #### [address] Mean Corpuscular HGB Conc 35.2 g/dL High 32.0-35.0 [facility] Comment on above: Performed By: #### C BC #### [facility] [address] [place] [address] [place] Monocytes (Bld) [#/Vol] 0.9 10*3/uL High 0.0-0.8 [facility] Comment on above: Performed By: #### C BC #### [facility] [address] [id number] [place] Monocytes/100 WBC (Bld) 9.0 % Normal . [facility] Comment on above: Performed By: #### C BC #### [facility] [address] Neutrophils (Bld) [#/Vol] 7.4 10*3/uL Normal 1.8-7.7 [facility] Comment on above: Performed By: #### C BC #### [facility] [address] Neutrophils/100 WBC (Bld) 72.2 % Normal . [facility] Comment on above: Performed By: #### C BC #### [facility] [address] [place] [address] [place] Nucleated RBC/100 WBC (Bld) [Ratio] 0.0 % Normal 0-0.5 [facility] Comment on above: Performed By: #### C BC #### [facility] [address] [place] [address] [place] Platelet mean volume (Bld) [Entitic vol] 10.2 fL Normal 6.3-10.7 [facility] Comment on above: Performed By: #### C BC #### [facility] [address] [place] [address] [place] Platelets (Bld) [#/Vol] 165 10*3/uL Normal 150-450 [facility] Comment on above: Performed By: #### C BC #### [facility] [address] [place] [address] [place] RBC (Bld) [#/Vol] 4.32 10*6/uL Normal 3.60-5.00 [facility] Comment on above: Performed By: #### C BC #### [address] WBC (Bld) [#/Vol] 10.3 10*3/uL Normal 4.5-11.0 [facility] Comment on above: Performed By: #### C BC #### [address] Comprehensive Metabolic Pane charan 12-03-2020 Albumin [Mass/Vol] 2.6 g/dL Low 3.2-5.5 [facility] Comment on above: Performed By: #### C MP #### [address] Albumin/Globulin [Mass ratio] 0.9 {ratio} Normal [facility] Comment on above: Performed By: #### C MP #### [address] ALP [Catalytic activity/Vol] 143 U/L High 32-92 [facility] Comment on above: Performed By: #### C MP #### [address] ALT [Catalytic activity/Vol] 61 U/L High 10-60 [facility] Comment on above: Performed By: #### C MP #### [address] AST [Catalytic activity/Vol] 41 U/L Normal 10-42 [facility] Comment on above: Performed By: #### C MP #### [address] Bilirubin [Mass/Vol] 0.7 mg/dL Normal 0.3-1.2 [facility] Comment on above: Performed By: #### C MP #### [address] Calcium [Mass/Vol] 9.0 mg/dL Normal 8.2-10.2 [facility] Comment on above: Performed By: #### C MP #### [address] Chloride [Moles/Vol] 107 mmol/L Normal 95-114 [facility] Comment on above: Performed By: #### C MP #### [address] CO2 [Moles/Vol] 20.8 mmol/L Low 22.0-30.0 [facility] Comment on above: Performed By: #### C MP #### [address] Creatinine [Mass/Vol] 0.89 mg/dL Normal 0.44-1.03 [facility] Comment on above: Performed By: #### C MP #### [address] Creatinine Clr Calc Pharmacy 88.89 [facility] Comment on above: Result Comment: PERF ORMED BY: [place] [address] PATHOLOGIST TRIMMER SORTER FIDENCIO LOW M.D. Performed By: #### C MP #### [address] Estimated GFR ( Mady > 60 [facility] Comment on above: Result Comment: GFR estimated reference range: According to KDOQI guidelines, <60 ml/min/1.73m2 is sufficient to diagnose a patient with chronic kidney disease. Performed By: #### C MP #### [address] Estimated GFR (Non- Am > 60 [facility] Comment on above: Performed By: #### C MP #### [address] Globulin (S) [Mass/Vol] 3.0 g/dL Normal [facility] Comment on above: Performed By: #### C MP #### [address] Glucose [Mass/Vol] 90 mg/dL Normal 70-100 [facility] Comment on above: Result Comment: [place] Glucose Reference Range is dependent on time and content of last meal. Glucose of more than 200 mg/dL in a nonstressed, ambulatory subject supports the diagnosis of Diabetes Mellitus. ADA recommended reference range Performed By: #### C MP #### [facility] [address] Potassium [Moles/Vol] 3.8 mmol/L Normal 3.5-5.1 [facility] Comment on above: Performed By: #### C MP #### [facility] [address] Protein [Mass/Vol] 5.6 g/dL Low 6.1-7.9 [facility] Comment on above: Performed By: #### C MP #### [facility] [address] Sodium [Moles/Vol] 137 mmol/L Normal 136-146 [facility] Comment on above: Performed By: #### C MP #### [address] Urea nitrogen [Mass/Vol] 11 mg/dL Normal - [facility] Comment on above: Performed By: #### C MP #### [place] [address] [place] Dipstick and Microscopicon 0 12-03-2020 Appearance (U) Clear Normal Clear [facility] Comment on above: Order Comment: Name Collection Type:: Clean-Voided Midstream Performed By: #### A DDONUAPLUS, OBUDS #### [place] [address] [place] Bacteria,Urine None Seen Normal None Seen [facility] Comment on above: Order Comment: Name Collection Type:: Clean-Voided Midstream Performed By: #### A DDONUAPLUS, OBUDS #### [facility] [address] [place] [address] [place] Bilirubin,Urine Negative Normal Negative [facility] Comment on above: Order Comment: Name Collection Type:: Clean-Voided Midstream Performed By: #### A DDONUAPLUS, OBUDS #### [facility] [address] [place] [address] [place] Color (U) Yellow Normal Yellow [facility] Comment on above: Order Comment: Name Collection Type:: Clean-Voided Midstream Performed By: #### A DDONUAPLUS OBUDS #### [facility] [address] [place] [address] Glucose Ql (U) Normal Normal Normal [facility] Comment on above: Order Comment: Name Collection Type:: Clean-Voided Midstream Performed By: #### A DDONUAPLUS OBUDS #### [place] [address] [place] Hyaline Casts,Urine 0-8 Normal 0-8 [facility] Comment on above: Order Comment: Name Collection Type:: Clean-Voided Midstream Result Comment: PERF ORMED BY: [place] [address] PATHOLOGIST TRIMMER SORTER FIDENCIO LOW M.D. Performed By: #### A DDONUAISHA OBUDS #### [address] Ketones Ql (U) Negative Normal Negative [facility] Comment on above: Order Comment: Name Collection Type:: Clean-Voided Midstream Performed By: #### A DDONUAPLUS OBUDS #### [address] Leukocyte esterase Test strip Ql (U) Negative Normal Negative [facility] Comment on above: Order Comment: Name Collection Type:: Clean-Voided Midstream Performed By: #### A DDONUAPLUS OBUDS #### [place] [address] [place] Nitrite,Urine Negative Normal Negative [facility] Comment on above: Order Comment: Name Collection Type:: Clean-Voided Midstream Performed By: #### A DDONUAPLUS OBUDS #### [address] Occult Blood,Urine 1+ High Negative [facility] Comment on above: Order Comment: Name Collection Type:: Clean-Voided Midstream Result Comment: PERF ORMED BY: [address] [place] [address] PATHOLOGIST TRIMMER SORTER FIDENCIO LOW M.D. Performed By: #### A DDONUAPLUS OBUDS #### [address] pH (U) 7.0 [pH] Normal 5.0-9.0 [facility] Comment on above: Order Comment: Name Collection Type:: Clean-Voided Midstream Performed By: #### A DDONUAPLUS OBUDS #### [address] Protein (U) [Mass/Vol] 300 mg/dL High Negative [facility] Comment on above: Order Comment: Name Collection Type:: Clean-Voided Midstream Performed By: #### A DDONUAPLUS, OBUDS #### [address] RBC,Urine 3-4 Normal 0-4 [facility] Comment on above: Order Comment: Name Collection Type:: Clean-Voided Midstream Performed By: #### A DDONUAPLUS OBUDS #### [address] Specificy [place],Urine 1.012 Normal 1.001-1.030 [facility] Comment on above: Order Comment: Name Collection Type:: Clean-Voided Midstream Performed By: #### A DDONUAPLUS OBUDS #### [address] Squamous Epithelial Cell,Urine 0-1 Normal 0-2 [facility] Comment on above: Order Comment: Name Collection Type:: Clean-Voided Midstream Performed By: #### A DDONUAPLUS, OBUDS #### [address] Urobilinogen,Urine Normal Normal Normal [facility] Comment on above: Order Comment: Name Collection Type:: Clean-Voided Midstream Performed By: #### A DDONUAPLUS, OBUDS #### [place] [id number] [place] WBC LM.HPF (Urine sed) [#/Area] 0 /[HPF] Normal 0-4 [facility] Comment on above: Order Comment: Name Collection Type:: Clean-Voided Midstream Performed By: #### A EAN OBUDS #### [address] OB Urine Drug Screen (NO THC )on 12-03-2020 Amphetamine Screen,Urine Negative Normal Negative [facility] Comment on above: Performed By: #### A ALTAGRACIAUAISHA OBUDS #### [address] Barbiturate Screen,Urine Negative Normal Negative [facility] Comment on above: Performed By: #### A NANCYONUAISHA OBUDS #### [place] [address] [place] Benzodiazepines Screen,Urine Negative Normal Negative [facility] Comment on above: Performed By: #### A DDONUAPLUS OBUDS #### [place] [address] [place] Cocaine Screen,Urine Negative Normal Negative [facility] Comment on above: Performed By: #### A ALTAGRACIAUAISHA OBUDS #### [place] [address] [place] Opiate Screen,Urine Negative Normal Negative [facility] Comment on above: Performed By: #### A NANCYONUAISHA OBUDS #### [place] [address] [place] Phencyclidine Screen, Urine Negative Normal Negative [facility] Comment on above: Result Comment: Thes e are unconfirmed results and should not be used for legal purposes. Drug Cut-Off Concentration: AMPH 1000 ng/mL SHELLY 200 ng/mL SHARMIN 200 ng/mL COCM 300 ng/mL OP 300 ng/mL PCP 25 ng/mL PERFORMED BY: [place] [address] PATHOLOGIST TRIMMER SORTER FIDENCIO LOW M.D. Performed By: #### A NANCYONPEDRITO, OBUDS #### [facility] [address] [place] [id number] [place] Strep B Cultureon 11-24-2020 Strep B Culture No Group B Beta Streptococcus Isolated 3 Days PERFORMED BY: [place] [address] PATHOLOGIST TRIMMER SORTER FIDENCIO LOW M.D. [facility] Comment on above: Performed By: #### C USTB #### [facility] [address] [place] [address] Vital Signs Date Time Vital Sign Value Performing Clinician Faci lity 04-08-2024 14:57-0500 Body height 167.6 cm Sarita Appiah DO Work Phone: [facility] 04-08-2024 14:57-0500 Body mass index (BMI) [Ratio] 22.11 kg/m2 Sarita Appiah DO Work Phone: [facility] 04-08-2024 14:57-0500 Body weight 62.14 kg Sarita Appiah DO Work Phone: [facility] 04-08-2023 14:48-0500 Body height 167.6 cm Maude Jeremy DO Work Phone: [facility] 04-08-2023 14:48-0500 Body mass index (BMI) [Ratio] 21.27 kg/m2 Maude Jeremy DO Work Phone: [facility] 04-08-2023 14:48-0500 Body weight 59.78 kg Maude Jeremy DO Work Phone: [facility] 04-08-2023 14:48-0500 Diastolic blood pressure 60 mm[Hg] Maude Jeremy DO Work Phone: [facility] 04-08-2023 14:48-0500 Systolic blood pressure 100 mm[Hg] Maude Jeremy DO Work Phone: [facility] Encounters Encounter Date Encounter Type Care Provider Facility Start: 04-08-2024 End: 04-08-2024 Patient encounter procedure Sarita Appiah DO Work Phone: [facility] Comment on above: Acute pain of right knee (Primary Dx) Start: 04-08-2024 End: 04-08-2024 ambulatory SARITA APPIAH Not Available Start: 04-08-2024 End: 04-08-2024 ambulatory SARITA APPIAH Not Available Start: 04-08-2023 End: 04-08-2023 Patient encounter procedure Maude Luna DO Work Phone: [facility] Start: 04-08-2023 End: 04-08-2023 Periodic preventive med est patient 18-39 yrs Maude Sinclairo DO Work Phone: [facility] Comment on above: Well woman exam with routine gynecological exam Start: 04-08-2023 Clinisync Result Encounter Maude Luna DO Work Phone: [facility] Unsolicited Start: 04-08-2023 Clinisync Result Encounter Maude Luna DO Work Phone: [facility]solic[facility] Start: 07-19-2022 End: 07-20-2022 Evaluation and management of inpatient DR MAUDE LUNA . Facility:[facility] Start: 06-06-2022 End: 06-07-2022 ambulatory [facility] Facility:[facility] Start: 05-28-2022 End: 05-29-2022 ambulatory [facility] Facility: Procedures Date Procedure Procedure Detail Performing Clinician Start: 04-08-2024 Radiologic examinati on knee 3 views Sarita Appiah DO Work Phone: Start: 04-08-2023 IGP,APTIMA HPV,AGE GDLN Maude Luna DO Work Phone: Start: 04-08-2023 Microscopic observat ion [Identifier] in Cervix by Cyto stain Sarita Appiah DO Work Phone: Plan of Treatment Date Care Activity Detail Author Start: 04-08-2028 Screening for malign ant neoplasm of cervix [facility] Start: 04-13-2024 End: 04-13-2024 Patient encounter procedure 04/13/2024 2:00 PM EST Office Visit [facility] [address] [address] Maude Luna, DO [address] [place], [place] [address] [place] [address] [facility] Start: 2023 Influenza vaccination Influenza Vacc ine (#1) [facility] Start: 11-08-2022 Influenza vaccination Influenza Vacc ine (#1) [facility] Immunizations Immunization Date Immunization Notes Care Provider Rosio madera 12-30-2020 influenza virus vacc ine, unspecified formulation Maude Luna DO Work Phone: [facility] Payers Date Payer Category Payer Private Health Insurance [id number] 1995 Unknown [id number] [id number] 1993 Unknown [id number] 1993 Unknown [id number] [id number] 1993 Unknown [id number] [id number] 1993 Unknown [id number] [id number] 1959 Unknown [id number] Social History Date Type Detail Facility Start: 08-30-2022 End: 04-08-2024 Tobacco smoking status TNIS Never smoked tobacco [facility] Start: 04-08-2023 End: 04-08-2024 Alcohol intake Lifetime non-drinker (finding) [facility] Start: 08-30-2022 End: 04-08-2024 History of Social function [facility] Start: 08-30-2022 End: 04-08-2024 Tobacco use panel [facility] Start: 08-30-2022 Education 17 [facility] Start: 08-30-2022 Alcohol Comment Caffeine intake: non e [facility] Start: 1995 Sex Assigned At Female [facility] Start: 05-22-2022 Gender identity Identifies as female gender (finding) [facility] Start: 04-08-2024 Tobacco use and exposure Smokeless t obacco non-user [facility] History of Present illness Narrative 04-08-2024 Gina Ku - 04/08/2024 2:30 PM EST Note Date & Type Note Facility 04-08-2024 History of Presen t illness Narrative Images from the original note were not included. Lottie Childress is a 28 y.o. female presents with chief complaint of right anterior knee pain with crepitance. HPI: Lottie is here as a 28-year-old active female that played softball several years while growing up. She works through [employer] in the [employer] side. She has two children, younger in age with her spouse at home. She does have stairs at home. She states over the last several weeks, she has had increasing pain. She is reporting crepitance for a while. This has gotten just slightly more tighter, swollen, stiff situation. She reports catching sensation. No specific fall or trauma. She has tried some ice and anti-inflammatory. She has no fever or chills, no arthralgias or myalgias. No significant contralateral symptoms. SUBJECTIVE: MEDICATIONS: No current outpatient medications ALLERGIES: No Known Allergies SURGICAL HISTORY: Past Surgical History: Procedure Laterality Date CT GUIDED PERCUTANEOUS BIOPSY BONE DEEP 07/11/2011 CT GUIDED PERCUTANEOUS BIOPSY BONE DEEP 07/11/2011 SHOULDER SURGERY Right x2 VAGINAL DELIVERY 2020 FAMILY HISTORY: Family History Problem Relation Name Age of Onset Colon cancer Maternal Grandfather SOCIAL HISTORY: Social History Tobacco Use Smoking status: Never Smokeless tobacco: Never Vaping Use Vaping status: Never Used Substance Use Topics Alcohol use: Never Comment: Caffeine intake: none Drug use: Never Depression: Not on file REVIEW OF SYMPTOMS: The review of systems, history and current medications list are all reviewed today. OBJECTIVE: Visit Vitals Ht 5' 6 Wt 137 lb BMI 22.11 kg/m OB Status Unknown Smoking Status Never BSA 1.7 m Physical Exam On physical exam, she is alert and oriented. Vital signs are stable. The right knee has neutral alignment. There is just trace swelling. There is a moderate amount of tenderness along the patellofemoral joint. Crepitance is present. Grind test is positive. Collateral ligaments are intact. Meniscal exam produces no medial or lateral joint pain. Apley's and Steve's is negative. Georgina and drawer are stable. She has full extension with flexion to 130 degrees. Pivot shift is negative. X-rays, permanently saved to the patient's record, are reviewed show 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 There is no acute fracture, dislocation, or OCD present. This is multiple views saved to the permanent record in the [place] office, AP, lateral and sunrise views. ASSESSMENT AND PLAN: Assessment/Plan Right anterior knee pain syndrome, i.e., chondromalacia patella. The nature of the findings were discussed at length. It does appear with her younger children and history of softball that she has irritated her cartilage on her knee cap. We discussed ice, neoprene sleeve, anti-inflammatory, activity avoidance of provocative maneuvers. She should see improvement with conservative care. She is aware that this could be vulnerable through her life and it does lead to higher rate of posttraumatic arthritis several years down the road. Unfortunately there is no way to simply stop this. If she has recalcitrant pain, MRI would be indicated to rule out other pathology. Consideration of arthroscopy. She voices verbal understanding. She is discharged in stable condition. The patient was seen and examined. From the time of check in, nurse triage, vital signs, x-ray, x-ray interpretation, review of systems, comprehensive history and physical exam as well as setting up treatment plan and further management took 50 minutes. Cosigned by Sarita Appiah DO at 04/12/2024 2:50 PM EST documented in this encounter [facility] History of Present illness Narrative 04-08-2023 Renee Carreon LPN - 04/08/2023 2:30 PM EST Note Date & Type Note Facility 04-08-2023 History of Presen t illness Narrative Reason for Appointment: Patient ID: Lottie Childress is a 27 y.o. female who presents for Gynecologic Exam Patient presents today for Annual Exam appointment. Current Medications: currently has no medications in their medication list. Medical History: Active Ambulatory Problems Diagnosis Date Noted No Active Ambulatory Problems Resolved Ambulatory Problems Diagnosis Date Noted No Resolved Ambulatory Problems Past Medical History: Diagnosis Date Anxiety Vaginal delivery 12/04/2020 Varicella zoster Vitamin D deficiency Family History Problem Relation Name Age of Onset Colon cancer Maternal Grandfather Social History Tobacco Use Smoking status: Never Smokeless tobacco: Not on file Substance Use Topics Alcohol use: Never Comment: Caffeine intake: none Drug use: Never Past Surgical History: Procedure Laterality Date CT GUIDED PERCUTANEOUS BIOPSY BONE DEEP 07/11/2011 CT GUIDED PERCUTANEOUS BIOPSY BONE DEEP 07/11/2011 SHOULDER SURGERY Right x2 VAGINAL DELIVERY 2020 No Known Allergies Review of Systems: Review of Systems Constitutional: Negative. HENT: Negative. Eyes: Negative. Respiratory: Negative. Cardiovascular: Negative. Gastrointestinal: Negative. Genitourinary: Negative. Musculoskeletal: Negative. Skin: Negative. Neurological: Negative. All other systems reviewed and are negative. Hematological: Negative. Endocrine: Negative. Allergic/Immunologic: Negative. Objective Physical Exam Constitutional: Appearance: Normal appearance. She is well-developed. Genitourinary: Vulva normal. Cardiovascular: Rate and Rhythm: Normal rate and regular rhythm. Pulmonary: Effort: Pulmonary effort is normal. Breath sounds: Normal breath sounds. Abdominal: General: Bowel sounds are normal. There is no distension. Palpations: Abdomen is soft. Tenderness: There is no abdominal tenderness. There is no guarding or rebound. Musculoskeletal: General: No swelling. Normal range of motion. Right lower leg: No edema. Left lower leg: No edema. Neurological: Mental Status: She is alert and oriented to person, place, and time. Skin: General: Skin is warm and dry. Psychiatric: Mood and Affect: Mood normal. Behavior: Behavior normal. Vitals and nursing note reviewed. Exam conducted with a integration architect present. Vitals: Estimated body mass index is 21.27 kg/m as calculated from the following: Height as of this encounter: 5' 6 . Weight as of this encounter: 131 lb 12.8 oz. BP: 100/60 Patient's last menstrual period was 03/18/2023. Assessment/Plan Encounter Diagnosis Name Primary? Well woman exam with routine gynecological exam Pt presents for annual exam. Pt doing well with no complaints. Pap obtained without difficulty. Pt to return in one year for annual unless needed sooner. Documented by Renee Carreon LPN on behalf of: Maude Luna DO documented in this encounter [facility] Evaluation note Note Date & Type Note Facility Evaluation note Diagnosis Well woman exam with routine gynecological exam Routine gynecological examination documented in this encounter [facility] Evaluation note Note Date & Type Note Facility Evaluation note Diagnosis Acute pain of right knee- Primary documented in this encounter [facility] Summary Purpose Family History No Family History Records FoundNo Family History Records FoundNo Family History Records Found Advance Directives No Advanced Directives Records FoundNo Advanced Directives Records FoundNo Advanced Directives Records Found Additional Source Comments INFORMATION SOURCE (unrecogn ized section and content) DATE CREATED AUTHOR 01/11/2021 [facility] DATE CREATED AUTHOR AUTHOR'S ORGANIZ ATION 07/20/[address] [facility] DATE CREATED AUTHOR AUTHOR'S ORGANIZ ATION 04/10/2024 [facility] EPIC Reason for Visit (unrecogniz ed section and content) Reason Comments Gynecologic Exam Reason Comments Pain Care Teams (unrecognized sec tion and content) [place] Relationship Specialty Start Date End Date Chino Bangura MD [address] [place] [address] PCP - General Family Medicine 08/27/22 [place] Relationship Specialty Start Date End Date Chino Bangura MD [address] [place] [address] PCP - General Family Medicine 08/27/22 FOR RECORDS PERTAINING TO PATIENTS WHO ARE OR HAVE BEEN ENROLLED IN A CHEMICAL DEPENDENCY/SUBSTANCEABUSE PROGRAM, SOME INFORMATION MAY BE OMITTED. This clinical summary was aggregated from multiple sources. Caution should be exercised in using it in the provision of clinical care. This summary normalizes information from multiple sources, and as a consequence, information in this document may materially change the coding, format and clinical context of patient data. In addition, data may be omitted in some cases. CLINICAL DECISIONS SHOULD BE BASED ON THE PRIMARY CLINICAL RECORDS. [facility], [facility]. provides no warranty or guarantee of the accuracy or completeness of information in this document.
--- NOTE | 2024-05-07 06:44 | US_ITS ---
The [address] [address] Patient Name: ELLIOTT RANDALL MRN: [id number] date: 1995 Sex: F Assigned Patient Location: US Current Patient Location: US Accession/Order Number: [id number] Exam Date: 05/07/2024 10:28 Report Date: 05/07/2024 10:29 At the request of: DIEGO RODRIGUEZ MD Procedure: US right upper quadrant LIMITED RIGHT UPPER QUADRANT ULTRASOUND CLINICAL HISTORY: Right upper quadrant abdominal pain and nausea COMPARISON: None The gallbladder is physiologically distended without shadowing calculi, wall thickening or pericholecystic fluid. No intra- or extrahepatic biliary dilatation is evident. The common duct measures 4 - 5 mm. The liver is normal in echogenicity. No intrahepatic masses are seen. There is appropriate hepatopetal flow within the main portal vein. The pancreas shows no significant sonographic abnormality. Cursory evaluation of the right kidney reveals no hydronephrosis or fluid within Navarro's pouch. US/US right upper quadrant IMPRESSION: NEGATIVE ULTRASOUND OF THE RIGHT UPPER QUADRANT. Impression dictated by: Renee Ramos M.D.05/07/2024 10:29 AM Dictation Location: [place] [address] Electronically authenticated by: [id number] Y Date: 05/07/2024 10:29
== END 2024-05-07 06:41 | disposition home or self-care (01) ==
LOC: US 06:40
PROVIDERS: Visit Provider Family Medicine
DX: R10.11 Right upper quadrant pain (principal)
CPT/HCPCS: 76705

== ENCOUNTER 2024-08-25 18:39 | Outpatient (OUT) | payer OTHER, SELFPAY ==
--- OUTSIDE RECORDS SUMMARY | 2024-05-07 10:04 | XMS_ITS ---
Author Organization The [facility] in [place] Address [address] [place] [address] Care Team Providers Care Trucking Contractor Name Role Phone CAREY RODRIGUEZ MD Primary Care Provider [phone] Carey Rodriguez Unavailable [phone] REASON FOR VISIT GB results Encounters Encounter Location Date Provider Diagnosis [facility] [address] [place] [address] 05/07/2024 Carey Rodriguez Right upper quadrant abdominal pain R10.11 Assessments Encounter Date Diagnosis (ICD Code) Assessment Notes Treatment Notes Treatment Clinical Notes Section Notes 05/07/2024 Right upper quadrant abdominal pain (ICD-10 - R10.11) Plan Of Treatment Pending Test Test Name Order Date C DIFF TOX PCR STOOL 05/07/2024 CMP - Comprehensive Metabolic Panel 04/11 AMYLASE 05/07/2024 CBC AUTO DIFF 05/07/2024 GLYCOHEMOGLOBIN A1C 05/07/2024 LIPASE 05/07/2024 SED RATE WESTERGREN 05/07/2024 Progress Notes * Lottie CHILDRESS RDOB: 4 (28 yo F)Acc No.[id number]:05/07/2024 Patient: Corine Lottie DOMINGO :1995 A ge:28 Y S ex:Female Address:[facility] [place] [address] [place], [address] Subjective: * Chief Complaints: * G B results * Medical History: * Surgical History: * Hospitalization/Major Diagno stic Procedure: * Medications: Objective: * Vitals: * Physical Examination: Assessment: * Assessment: 1. R ight upper quadrant abdominal pain - R10.11 (Primary) Plan: * Treatment: * Procedure Codes: * true * Date: Generated for Laly pacheco/Brandi/Chelseaitting on: 0 08/25/2024 06:46 PM EDT
--- OUTSIDE RECORDS SUMMARY | 2024-08-04 12:15 | XMS_ITS ---
Author Organization The [facility] in [place] Address [address] [place] [address] Care Team Providers Care Production Controller Name Role Phone CAREY RODRIGUEZ MD Primary Care Provider [phone] Carey Rodriguez Unavailable [phone] Allergies No Known Allergies REASON FOR VISIT Lump on inner lip of mouth Medications Medication SIG (Take, Route, Frequency, Duration) Notes Start Date End Date Status Atomoxetine HCl 40 MG 1 capsule in the m orning Orally Once a day for 30 day(s) 08/04/2024 Active Triamcinolone Acetonide 0.1 % 1 application do not rinse afterwards and avoid eating or drinking for 30 minutes Mouth/Throat Twice a day for 30 days 08/04/2024 Active Social History Tobacco Use: Social History Observation Description Date Details (start date - stop date) Never Smoker NA - NA Tobacco Use/Smoking Question Answer Notes Patient is a nonsmoker Problems Problem Type SNOMED Code ICD Code Onset Dates Problem Status W/U Status Risk Notes Problem Mucocele of mouth (disorder) (856489640) 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 Problem ADHD (F90.9) Active confirmed Vital Signs Blood pressure systolic 102 mm Hg 08/05/19 25 Blood pressure diastolic 62 mm Hg 025 Height 65 in 08/04/2024 Weight 131 lbs 08/04/2024 BMI 21.8 kg/m2 08/04/2024 Encounters Encounter Location Date Provider Diagnosis [facility] [address] [place] [address] 08/04/2024 Carey Rodriguez ADHD F90.9 and Mucocele of buccal mucosa K13.79 Assessments Encounter Date Diagnosis (ICD Code) Assessment Notes Treatment Notes Treatment Clinical Notes Section Notes 08/04/2024 ADHD (ICD-10 - F90.9) 08/04/2024 Mucocele of buccal mucosa (ICD-10 - K13.79) Plan Of Treatment Medication Medication Name Sig Start Date Stop Date Notes Atomoxetine HCl 40 MG 1 capsule in the m orning Orally Once a day for 30 day(s) 08/04/2024 Triamcinolone Acetonide 0.1 % 1 applicat ion do not rinse afterwards and avoid eating or drinking for 30 minutes Mouth/Throat Twice a day for 30 days 08/04/2024 Progress Notes * Lottie CHILDRESS RDOB: 4 (28 yo F)Acc No.[id number]:08/04/2024 Progress Note Patient: Lottie GUZMAN Provider: Teo Rodriguez ([facility])MD :1995 A ge:28 Y S ex:Female Date:08/04/2024 Address:[facility] [address] [facility] Pcp:CAREY RODRIGUEZ MD Check In:04:08 PM ESTCheck O ut:04:54 PM EST Subjective: * Chief Complaints: * L ump on inner lip of mouth * HPI: G eneral: Left lowetr lip wiht swelling - at least 6 weeks -. 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 Modified On:12/19/2022U Status:confirmed M77.42 Metatarsalgia, left foot Modified On:07/01/2023/U Status:confirmed G57.62 Lesion of plantar ne rve, left lower limb Modified On:05/28/2024W/U Status:confirmed M94.261 Chondromalacia of kn ee, right Modified On:04/13/2024/U Status:confirmed R10.11 Right upper quadrant abdominal pain Modified On:04/28/2024/U Status:confirmed F90.9 ADHD Modified On:08/04/2024/U Status:confirmed K13.79 Mucocele of buccal m ucosa Modified On:08/04/2024/U Status:confirmed * Medical History: * Surgical History: N o surgical / procedural history No thyroid disease * Hospitalization/Major Diagno stic Procedure: s ee above child 2022 * Family History: M igrated Family History:: Mother not ;Father not ;. * Social History: T obacco Use: T obacco Use/Smoking P atient is a n onsmoker * Medications: D iscontinuedCarafate(Sucralfate) 1 GM Tablet 1 tablet on an empty stomach Orally Twice a day Protonix(Pantoprazole Sodium) 40 MG Tablet Delayed Release 1 tablet Orally Once a day Medication List reviewed and reconciled with the patientDiscontinued Carafate(Sucralfate) 1 GM Tablet 1 tablet on an empty stomach Orally Twice a day Discontinued Protonix(Pantoprazole Sodium) 40 MG Tablet Delayed Release 1 tablet Orally Once a day Medication List reviewed and reconciled with the patient * Allergies: N .K.D.A.no[Allergies Verified] Objective: * Vitals: W t:131lbs, Ht: 65 in, BP:102/62mm Hg, BMI:21.8Index, Ht-cm: 165.1 cm, Wt-k.42 kg. * Examination: A bdomen Exam:: L eft lower lip iwht swelling - possible mucocele possibel adhd - wnat to tty meds. Assessment: * Assessment: 1. A DHD - F90.9 (Primary) 2 . M ucocele of buccal mucosa - K13.79 ? Plan: * Treatment: * Procedure Codes: * * Sign off status: Completed Visit Status: C HK (Check Out) true * Provider: Teo Rodriguez ([facility])MD Date: 0 08/04/2024 Generated for Laly pacheco/Brandi/Chelseaitting on: 0 08/25/2024 06:46 PM EDT History and Physical Notes * HPI (History of Present Illness) Category Sub-Category Detail Notes Category Not es General Left lowetr lip wiht swelling - at least 6 weeks - Examination Category Sub-Category Detail Notes Category Not es Abdomen Exam: Left lower lip iwht swelling - possible mucocele possibel adhd - wnat to tty meds
--- OUTSIDE RECORDS SUMMARY | 2024-08-12 09:30 | XMS_ITS | Encounter Summary ---
Author Organization [facility] Address [address] [place] [address] Care Team Providers Care Yard Foreman Name Role Phone Chino Bangura MD Primary Care Provider [phone] Reason for Visit * Reason Comments Leg Pain Pt present today for pain in legs/feet after delivering in 2022. Pt wants to check for potential ovarian cyst. Encounter Details Date Type Department Care Team (Late st Contact Info) Description 08/12/2024 9:30 AM EDT Office Visit [facility] [address] [phone] Sixto Luna, DO [address] [place] [address] Pain in both lower extremities; Pelvic pain in female Social History Tobacco Use Types Packs/Day Years Used Date Smoking Tobacco: Never Smokeless Tobacco: Never Alcohol Use Standard Drinks/Week Comments Never 0 (1 standard drink = 0.6 oz pur e alcohol) Caffeine intake: none Education Answer Date Recorded What is the highest level of school you have completed or the highest degree you have received? Bachelor's degree (e.g., BA, AB, BS) 08/30/2022 Comments No Sex and Gender Information Value Date Recorded Sex Assigned at Female 08/26/2022 10:35 AM EDT Legal Sex Female 6:47 PM EDT Gender Identity Female 05/22/2022 6:47 PM EDT Sexual Orientation Not on file documented as of this encounter Last Filed Vital Signs Vital Sign Reading Time Taken Comments Blood Pressure 102/68 08/12/2024 10:10 AM EDT Pulse - - Temperature - - Respiratory Rate - - Oxygen Saturation - - Inhaled Oxygen Concentration - - Weight 58.5 kg (129 lb) 08/12/2024 10:10 AM EDT Height - - Body Mass Index 20.82 04/08/2024 2:57 PM EST documented in this encounter Progress Notes * Petty Barba LPN - 08/12/2024 9:30 AM EDT Reason for Appointment: Patient ID: Cindy Childress is a 28 y.o. female who presents for Leg Pain (Pt present today for painin legs/feet after delivering in 2022. Pt wants to check for potential ovarian cyst.) Patient presents today for Consult appointment. MEDICATIONS Current Outpatient Medications Medication Instructions atomoxetine (Strattera) 40 MG capsule Every 24 hours Carafate 1 g tablet Take 1 tablet 4 times a day by oral route. pantoprazole (PROTONIX) 40 mg, Daily ALLERGIES No Known Allergies PROBLEMS Active Ambulatory Problems Diagnosis Date Noted No Active Ambulatory Problems Resolved Ambulatory Problems Diagnosis Date Noted No Resolved Ambulatory Problems Past Medical History: Diagnosis Date Anxiety Vaginal delivery 12/04/2020 Varicella zoster Vitamin D deficiency HISTORY PAST MEDICAL HISTORY SOCIAL HISTORY Past Medical History: Diagnosis Date Anxiety Vaginal delivery 12/04/2020 Varicella zoster Vitamin D deficiency Social History Tobacco Use Smoking status: Never Smokeless tobacco: Never Vaping Use Vaping status: Never Used Substance Use Topics Alcohol use: Never Comment: Caffeine intake: none Drug use: Never FAMILY HISTORY Family History Problem Relation Name Age of Onset Colon cancer Maternal Grandfather SURGICAL HISTORY Past Surgical History: Procedure Laterality Date CT GUIDED PERCUTANEOUS BIOPSY BONE DEEP 07/11/2011 CT GUIDED PERCUTANEOUS BIOPSY BONE DEEP 07/11/2011 SHOULDER SURGERY Right x2 VAGINAL DELIVERY 2020 VAGINAL DELIVERY 2022 REVIEW OF SYSTEMS Review of Systems: Review of Systems Constitutional: Negative. HENT: Negative. Eyes: Negative. Respiratory: Negative. Cardiovascular: Negative. Gastrointestinal: Negative. Genitourinary: Negative. Musculoskeletal: Negative. Skin: Negative. Neurological: Negative. All other systems reviewed and are negative. Hematological: Negative. Endocrine: Negative. Allergic/Immunologic: Negative. OBJECTIVE Objective: Physical Exam Constitutional: Appearance: Normal appearance. She is well-developed. Cardiovascular: Rate and Rhythm: Normal rate and [...] nursing note reviewed. Exam conducted with a gm present. Vitals: Estimated body mass index is 20.82 kg/m?? as calculated from the following: Height as of 04/08/24: 5' 6 . Weight as of this encounter: 129 lb. BP: 102/68 Patient's last menstrual period was 07/17/2024 (approximate). ASSESSMENT & PLAN ICD-10-CM 1. Pain in both lower extremities M79.604 M79.605 Patient presents to office to discuss bilateral leg pain after giving . Patient voiced she would like to see if this is possibly indicative of Endometriosis. Patient voiced decreased sex drive and hair loss still coming out in clumps. Patient is agreeable to have labs drawn. Discussed control with patient to see if symptoms improve with medication, patient voiced that she does not desire to be on control. Discussed with patient diagnostic lap to see if endometriosis is present.Discussed PT for pelvic dysfunction as well, since patient need to sit on donut after delivery due to tailbone pain. Patient voiced that right before cycle and ovulation she gets leg discomfort and bilateral feet throbbing. Patient voiced that due to gnosticism beliefs control will not be an option. Patient will be referred to PT for pelvic pain & LE pain and can discuss possible surgical management in the future as pain is impacting ADL's and quality of life. Documented by Petty Barba LPN on behalf of: Sixto Luna DO documented in this encounter Plan of Treatment Upcoming Encounters Date Type Department Care Team (Late st Contact Info) Description 09/01/2024 8:10 AM EDT Office Visit [facility] [address] [facility] [address] [place] [address] Yanelis Patten MD [address] [facility] [address] [place] [address] 10/25/2024 3:50 PM EDT Office Visit [facility] [address] [facility] [place] [address] Sixto Luna, DO [address] [facility] [place] [address] Scheduled Orders Name Type Priority Associated Diagnoses Orde r Schedule hCG, quantitative, Lab Routine Pain in both lower extremities Pelvic pain in female Ordered: 08/12/2024 TSH Lab Routine Pain in both lower extremities Pelvic pain in female Ordered: 08/12/2024 T4, free Lab Routine Pain in both lower extremities Pelvic pain in female Ordered: 08/12/2024 CBC and differential Lab Routine Pain in both lower extremities Pelvic pain in female Ordered: 08/12/2024 Follicle stimulating hormone Lab Routine Pain in both lower extremities Pelvic pain in female Ordered: 08/12/2024 Luteinizing hormone Lab Routine Pain in both lower extremities Pelvic pain in female Ordered: 08/12/2024 Hemoglobin A1c Lab Routine Pain in both lower extremities Pelvic pain in female Ordered: 08/12/2024 DHEA-sulfate Lab Routine Pain in both lower extremities Pelvic pain in female Ordered: 08/12/2024 DHEA Lab Routine Pain in both lower extremities Pelvic pain in female Expected: 08/12/2024 (Approximate), Expires: 08/12/2025 US Pelvis w/ TV Imaging Routine Pain in both lower extremities Pelvic pain in female Expected: 08/12/2024, Expires: 08/12/2025 Estradiol Lab Routine Pain in both lower extremities Pelvic pain in female Ordered: 08/12/2024 Progesterone Lab Routine Pain in both lower extremities Pelvic pain in female Ordered: 08/12/2024 documented as of this encounter Visit Diagnoses Diagnosis Pain in both lower extremities Pelvic pain in female Unspecified symptom associated with female genital organs documented in this encounter Care Teams Yard Foreman Relationship Specialty Start Date End Date Chino Bangura MD [address] [place] [address] PCP - General Family Medicine 08/27/22 documented as of this encounter
--- OUTSIDE RECORDS SUMMARY | 2024-08-24 08:13 | XMS_ITS ---
Author Organization The [facility] in [place] Address [address] [place] [address] Care Team Providers Care Supervisor [employer] Name Role Phone CAREY RODRIGUEZ MD Primary Care Provider Carey Rodriguez Unavailable [phone] Reason For Referral Diagnosis 1 Mouth abscess (K12.2 ) Referral Organization [facility] Referring Provider First Name Carey Referring Provider [...] Active Encounters Encounter Location Date Provider Diagnosis [facility] [address] [facility] [place] [address] 08/24/2024 Carey Rodriguez Mouth abscess K12.2 Assessments [...] Lottie CHILDRESS RDOB: 4 (28 yo F)Acc No.[id number]:08/24/2024 Patient: Lottie GUZMAN :1995 A ge:28 Y S ex:Female Address:[facility] [address], [place], [address] * Refills Start Qelbree Capsule Extended Release [...] Date: Generated for Laly pacheco/Brandi/eTransmitting on: 0 08/25/2024 06:46 PM EDT Consultation Request Notes Referral Date Referring Provider Referred Provider Not es 08/24/2024 Carey Rodriguez Hilary
--- NOTE | 2024-08-25 | US_ITS ---
[address] [address] Patient Name: ELLIOTT RANDALL MRN: [id number] date: 1995 Sex: F Assigned Patient Location: Current Patient Location: Accession/Order Number: [id number] Exam Date: 08/26/2024 00:28 Report Date: 08/26/2024 00:29 At the request of: MAUDE PARKS DO Procedure: US pelvis w/ transvaginal EXAMINATION TYPE: US pelvis w/ transvaginal Grayscale, color scale Doppler, vascular duplex analysis of the bilateral ovaries DATE OF EXAM ORDERED: 08/25/2024 8:12 PM HISTORY: pelvic pain R10.2, lower extremity pain M79.604 M79.605, COMPARISON: NONE TECHNIQUE: Realtime Transvaginal and Transabdominal imaging was performed. Transvaginal imaging was utilized to better evaluate the ovaries and the endometrial stripe. Grayscale, color scale Doppler, vascular duplex analysis of the bilateral ovaries was performed to assess blood flow. FINDINGS: The uterus measures 8.3 x 4.2 x 5.0 cm. The uterus is normal in echogenicity. Endometrium: Normal thickness and appearance. The endometrium measures 6 mm in thickness. Ovaries: The visualized ovaries are within normal limits for songraphic evaluation. Right Ovary measurements: 5.0 x 2.0 x 3.5 cm Left Ovary measurements: 3.7 x 1.7 x 2.8 cm No abnormal adnexal mass is seen. No free fluid in the pelvic cul-de-sac. Vascular duplex analysis of the bilateral ovaries demonstrates normal blood flow without evidence of ovarian ischemia. US/US pelvis w/ transvaginal IMPRESSION: Normal pelvic ultrasound. No evidence of ovarian ischemia. Impression dictated by: Terrance Moreno M.D. 08/26/2024 12:29 AM Dictation Location: [place] [address] Electronically authenticated by: [id number] Y Date: 08/26/2024 00:29
--- OUTSIDE RECORDS SUMMARY | 2024-08-25 18:46 | XMS_ITS | Encounter Summary ---
Author Organization [facility] Address [address] [place] [address] Care Team Providers Care Molder Inflated Ball Name Role Phone Chino Bangura MD Primary Care Provider [phone] Encounter Details Date Type Department Care Team (Late Contact Info) Description 08/30/[address] [facility] [address] [facility] [address] [place] [address] Zofia Oconnor PA [address] [facility] [facility] [address] [place], [place] [id number] Social History Tobacco Use Types Packs/Day Years Used Date Smoking Tobacco: Never Tobacco Cessation:Counseling Given: Not Answered Alcohol Use Standard Drinks/Week Comments Never 0 [...] on file documented as of this encounter Plan of Treatment Upcoming Encounters Date Type Department Care Team (Late Contact Info) Description 09/01/2024 8:10 AM EDT Office Visit [facility] [address] [place] [address] Yanelis Patten MD [address] [facility] [address] [place] [address] 10/25/2024 3:50 PM EDT Office Visit [facility] [address] [facility] [place] [address] Sixto Luna, [address] [facility] [place] [address] documented as of this encounter Visit Diagnoses Not on filedocumented in this encounter Care Teams Molder Inflated Ball Relationship Specialty Start Date End Date Chino Bangura MD [address] [facility] [place] [address] PCP - General Family Medicine 08/27/22 documented as of this encounter
--- OUTSIDE RECORDS SUMMARY | 2024-08-25 18:46 | XMS_ITS | Data Portability ---
Author Organization [place] - [facility] , [facility] Address [address] [place] [address] Assessment Encounter Date Assessment Date Assessment LastModified by Organization Details LastModified Time 04/27/2024 04/27/2024 DDX H.pylori, stomach ulcer RX: Carafate, continue with pepcid possibility: medication verification for safety with *Raise the head of your bed by 6 to 8 inches *Sleep on your left side. *Avoid foods that make your symptoms worse For some people, these include coffee, chocolate, alcohol, peppermint, and fatty foods. It might help to write down what you ate before having reflux. This can help you figure out if a food is causing your symptoms. *Stop smoking, if you smoke. Your doctor or nurse can help you. *Avoid late meals Lying down with a full stomach can make reflux worse. Try to plan meals for at least 2 to 3 hours before bedtime. If no improvement in symptoms report for testing and evalutation - Medication use, side effects, risks, benefits, and alternatives discussed. - Risks/benefits of plan discussed, patient demonstrated understanding and agreed with plan using shared decision making, patient expressed understanding of the limitations of telemedicine and the inability to perform a complete exam. -Counseled on the importance of follow up if symptoms not improving with recommended treatment plan. Patient to be seen for repeat evaluation if symptoms worsen, counseled on red flag symptoms to indicate need for emergent follow up. - Patient expressed understanding and agreement with the treatment plan as outlined [email or web address] Not available 04/27/2024 09:13:55 Plan of Treatment Reminders Order Date Submit Date Provider Last Modified By Organization Details Last Modified Time Details Appointments None recorded. Lab None recorded. Referral None recorded. Procedures None recorded. Surgeries None recorded. Imaging None recorded. Medication Orders Carafate 1 gram tablet 2024 025 [facility]/Pharmacy #[id number], [address] [place], [address], 09:12:22 Patient TargetsNo targets recorded. Patient InstructionsNo instructions recorded. Reason for Referral None Reported. Medical Equipment None Reported. Allergies No known drug allergies Medications Name Sig Start Date Stop Date Status Note LastModified by Organization Details LastModified Time Carafate 1 gram tablet Take 1 tablet 4 times a day by oral route. 025 active Not Available Not Available Not Avai lable Vitals None Recorded Social History None recorded. Functional Status None recorded. Mental Status None recorded. Family History Nothing Reported. Medical History No medical history recorded. Gynecological HistoryNo gynecological history recorded. Obstetrics History GPAL:G 0 P 0 0 0 0 Past Encounters Encounter ID Performer Location Encounter Start Date Encounter Closed Date Diagnosis/Indication Diagnosis SNOMED-CT Code Diagnosis ICD10 Code Diagnosis Note [id number] [facility] [address] [facility] [address] [place] [address] 04/27/2024 09:08:35 04/27/2024 15:12:25 Gastroesophageal reflux disease without esophagitis 235911500 K21.9 Health Concerns Section Related Observation LastModified by Organization Detai ls LastModified Time None Recorded Concern Status LastModified by Organization Details LastModified Time None Recorded Advance Directives Directive None Recorded Payers Insurance Date Sequence Insurance Name Policy Number Policy Davis Covered Member ID Davis Member ID Guarantor Name 04/27/2024 2 *SELF PAY* [id number] Lottie Mapus [id number] Lottie Mapus 04/27/2024 [facility] [id number] Lottie Mapus [id number] Lottie Mapus 05/06/2024 1 [facility] [id number] Lottie Mapus [id number] Lottie Mapus 04/27/2024 1 *SELF PAY* Ke suzieey Mapus Notes Date Note Type Note Provider Name and Address Organization Details Recorded Time 04/27/2024 text/html Call connected, patient greeted. Patient name, , and location verified verbally with the patient. Telemedicine limitations reviewed, answered all questions the patient had about the telehealth interaction, and verbal consent obtained to treat. Clinician attests they are physically located in the following state at the time of visit: [place] The patient consents to the use of [employer] scribe technology. Reviewed chart including chief complaint, ROS, History and previous labs and documents when applicable. 28 year old female CC: Stomach pain and burping HPI: The patient presents with symptoms suggestive of a stomach ulcer, characterized by constant tiny burps and significant stomach pain, primarily localized in the diaphragm area. These symptoms are exacerbated following meals but are described as a dull pain that persists even without food intake. The patient reports a history of stomach ulcers, although it has been some time since any treatment was undertaken, and they cannot recall the specific medications previously used. Notably, the patient took Pepcid this morning, which provided some relief. The patient inquired about the safety of potential treatments in the context of trying to become , but currently does not suspect . There is no mention of any other related symptoms such as nausea, vomiting, or changes in bowel habits. The patient s primary concern is the exacerbation of pain following meals and is seeking further guidance on management and appropriate treatment. Arianne Quezada, UNDERWEAR CUTTER 1 [facility] [address], [place], [address], [facility] 04/27/2024 09:14:11 OBGyn Episode No OBEpisode recorded.
--- OUTSIDE RECORDS SUMMARY | 2024-08-25 18:46 | XMS_ITS | Clinical Summary ---
Author Organization [facility] Address [address] [place] [place] [address] Care Team Providers Care Derrick Barge Operator Name Role Phone Chino Bangura MD Primary Care Provider [phone] Allergies No known active allergies Medications pantoprazole (ProtoNix) 40 MG EC tablet Take 40 mg by mouth Daily 05/25/2024 Active atomoxetine (Strattera) 40 MG capsule 1 (one) time each day at the same time 08/04/2024 Active Carafate 1 g tablet Take 1 tablet 4 times a day by oral route. 04/27/2024 Active Active Problems No known active problems Encounters Date Type Department Care Team Description 08/19/2024 Abstract [facility] [address] [place] [phone] Lisa Ibarra MA 08/12/2024 9:30 AM EDT Office Visit [facility] [place] [address] [place] [id number] Sixto Luna DO Pain in both lower extremities; Pelvic pain in female 08/12/2024 Bamboo flowsheet [facility] [address] [place] [id number] Sixto Luna DO from Last 3 Months Family History Medical History Relation Name Comments Colon cancer Maternal Grandfather Relation Name Status Comments Daughter 1 Father Alive Maternal Grandfather Alive Maternal Grandmother Alive Mother Alive Paternal Grandfather Alive Paternal Grandmother Alive Sister 2 Social History Tobacco Use Types Packs/Day Years Used Date Smoking Tobacco: Never Smokeless Tobacco: Never Tobacco Cessation:Counseling Given: Not Answered [...] PM EDT Sexual Orientation Not on file Last Filed Vital Signs Vital Sign Reading Time Taken Comments Blood Pressure 102/68 08/12/2024 10:10 AM EDT Pulse - - Temperature - - Respiratory Rate - - Oxygen Saturation - - Inhaled Oxygen Concentration - - Weight 58.5 kg (129 lb) 08/12/2024 10:10 AM EDT Height 167.6 cm (5' 6 ) 04/08/2024 2:57 PM EST Body Mass Index 20.82 04/08/2024 2:57 PM EST Plan of Treatment Upcoming Encounters Date Type Department Care Team (Late st Contact Info) Description 09/01/2024 8:10 AM EDT Office Visit [facility] [address] [facility] [address] [place] [address] Yanelis Patten MD [address] [facility] [address] [place] [address] 10/25/2024 3:50 PM EDT Office Visit [facility] [address] [place] [address] Sixto Luna DO [address] [place] [address] Health Maintenance Due Date Last Done Comments Influenza Vaccine (Season Ended) 2024 12/31/19 21, 11/21/2017 Cervical Cancer Screening 04/08/2028 HPV/Cotest 04/08/2028 02/12/2022, 02/09/2019 Pap Smear 04/08/2028 04/08/2023, 12/0 08/2021, 02/28/2020 Procedures Procedure Name Priority Date/Time Associated Diagnosis Comments PAP SMEAR Routine 04/08/2023 12:00 AM EST THINPREP TIS PAP REFLEX HPV MRNA E6/E7 (48937) Routine 02/12/2022 from Last 3 Months or Most Recently Relevant to Health Maintenance Results * Pap Smear (04/08/2023 12:00 AM EST) Swab Cervical swab / Unknown Sixto Luna DO LAB CYTOLOGY ORDERABLES Final Re sult EXTERNAL LAB * THINPREP TIS PAP REFLEX HPV MRNA E6/E7 (70131) (02/12/2022) CLINICAL INFORMATION: None given [facility] LMP: NONE GIVEN [facility] PREV. PAP: NONE GIVEN [facility] PREV. BX: NONE GIVEN [facility] SOURCE: None given [facility] STATEMENT OF ADEQUACY: SEE COMMENT [facility] Comment: Satisfactory for evaluation. Endocervical/transformation zone component present. INTERPRETATION /RESULT: Negative for intraepithelial lesion or malignancy. [facility] COMMENT: This Pap test has been evaluated with computer assisted technology. [facility] CYTOTECHNOLOGI ST: SEE COMMENT [facility] Comment: NNO, CT(ASCP) CT screening location: [place] [address]. COMMENT SEE COMMENT [facility] Comment: EXPLANATORY NOTE: The Pap is a screening test for cervical cancer. It is not a diagnostic test and is subject to false negative and false positive results. It is most reliable when a satisfactory sample, regularly obtained, is submitted with relevant clinical findings and history, and when the Pap result is evaluated along with historic and current clinical information. 02/12/2022 us Kya J Nataprawira DO [facility] Final Resu lt [facility] from Last 3 Months or Most Recently Relevant to Health Maintenance Insurance [facility] Care Teams Derrick Barge Operator Relationship Specialty Start Date End Date Chino Bangura MD [address] [facility] [place] [address] PCP - General Family Medicine 08/27/22
--- OUTSIDE RECORDS SUMMARY | 2024-08-25 18:46 | XMS_ITS | Clinical Summary ---
Author Organization [facility] Address [address] [place] [address] Phone Care Team Providers Care Forestry Conservation Worker Name Role Phone Chino Bangura MD Primary Care Provider [phone] Social History Tobacco Use Types Packs/Day Years Used Date Smoking Tobacco: Never Assessed Comments Unknown Sex and Gender Information Value Date Recorded Sex Assigned at Not on file Legal Sex Female 12:24 PM EST Gender Identity Not on file Sexual Orientation Not on file Plan of Treatment Not on file Care Teams Forestry Conservation Worker Relationship Specialty Start Date End Date Chino Bangura MD [address] [facility] [place] [address] PCP - General 06/13/11
--- OUTSIDE RECORDS SUMMARY | 2024-08-25 18:46 | XMS_ITS | Encounter Summary ---
Author Organization [facility] Address [address] [facility] [place] [address] Care Team Providers Care Cst Name Role Phone Chino Bangura MD Primary Care Provider [phone] Encounter Details Date Type Department Care Team (Late Contact Info) Description 08/12/2024 Bamboo flowsheet [facility] [address] [place] [address] Sixto Luna, DO [address] [place], [id number] Social History Tobacco Use Types Packs/Day Years [...] EDT Office Visit [facility] [address] [place] [address] Yanelis Patten MD [address] [facility] [address] [place] [address] 10/25/2024 3:50 PM EDT Office Visit [facility] [address] [facility] [place] [address] Sixto Luna, DO [address] [facility] [place] [address] documented as of this encounter Visit Diagnoses Not on filedocumented in this encounter Care Teams Cst Relationship Specialty Start Date End Date Chino Bangura MD [address] [facility] [place] [address] PCP - General Family Medicine 08/27/22 documented as of this encounter
--- OUTSIDE RECORDS SUMMARY | 2024-08-25 18:47 | XMS_ITS | Data Portability ---
Author Organization [place] - [facility] , [facility] Address [address] [place] [address] Assessment Encounter Date Assessment Date Assessment LastModified [...] Orders Carafate 1 gram tablet 2024 025 [facility]/Pharmacy #[id number], [address] [place], [address], 09:12:22 Patient TargetsNo targets recorded. Patient InstructionsNo [...] SNOMED-CT Code Diagnosis ICD10 Code Diagnosis Note [id number] CESARIO [facility] [address] [facility] [address] [place] [address] 04/27/2024 09:08:35 04/27/2024 15:12:25 Gastroesophageal reflux disease without esophagitis [id number] K21.9 Health Concerns Section Related Observation LastModified by Organization Detai ls LastModified Time None Recorded Concern Status LastModified by Organization Details LastModified Time None Recorded Advance Directives Directive None Recorded Payers Insurance Date Sequence Insurance Name Policy Number Policy Davis Covered Member ID Davis Member ID Guarantor Name 04/27/2024 2 *SELF PAY* [id number] Lottie Mapus [id number] Lottie Mapus 04/27/2024 [facility] [id number] Lottie Mapus [id number] Lottie Mapus 05/06/2024 1 [facility] [id number] Lottie Mapus [id number] Lottie Mapus 04/27/2024 1 *SELF PAY* Ke [...] The patient consents to the use of [employer] scribe technology. Reviewed chart including chief complaint, [...] on management and appropriate treatment. Arianne Quezada, HAND III CUTTER 1 [facility] [address], [place], [address], [facility] 04/27/2024 09:14:11 OBGyn Episode No OBEpisode recorded.
--- OUTSIDE RECORDS SUMMARY | 2024-08-25 18:47 | XMS_ITS | Patient Health Record ---
Author Organization The [facility] in [place] Address [address] [place] [address] Care Team Providers Care Manufacturer Agent Name Role Phone CAREY BANGURA MD Primary Care Provider Christos Crews Unavailable [phone] Carey Bangura Unavailable [phone] Allergies No Known Allergies Results Component Value Reference Range Notes MR foot LT wo con (Not yet r eviewed by provider) Interpretation: Performing Lab: Notes/Report: Source Facility: [place] [address] Magnetic Resonance Report Signed Patient: LOTTIE CHILDRESS MR#: [id number] : 1995 Acct:[id number] Age/Sex: 27 / F ADM Date: 08/26/23 Loc: MRI Attending Dr: Yue Salas Ordering Physician: Yue Salas Date of Service: 08/26/23 Procedure(s): foot LT wo con Accession Number(s): [id number] cc: Yue Salas; Physician,Non-Staff M.DChristina The [place] [address] Patient Name: LOTTIE CHILDRESS MRN: [id number] date: 1995 Sex: F Assigned Patient Location: MRI Current Patient Location: Accession/Order Number: [id number] Exam Date: 08/26/2023 15:50 Report Date: 08/28/2023 10:59 At the request of: UYE SALAS Procedure: MR foot LT wo con EXAM: MR foot LT wo con REASON FOR EXAM: Stress fracture Left foot. TECHNIQUE: Multiplanar, multisequence imaging of the left foot was performed without contrast COMPARISON: Radiographs 07/01/2023. FINDINGS: Study degraded by motion. The bone marrow signal is without acute displaced fracture. There is linear signal involving the second metatarsal proximal diaphysis (series 8/9, image 8), this could reflect a stress fracture. However, no significant marrow edema is identified and no significant periosteal edema identified. The midfoot appears congruent. Lisfranc ligament is intact. The visualized ankle tendons appear intact. No evidence of acute ligamentous injury identified. The plantar musculature demonstrates normal bulk and signal. Remaining soft tissues are unremarkable. MR/MR foot LT wo con IMPRESSION: 1. Linear signal involving the proximal second metatarsal base could reflect a stress fracture, although no significant edema is identified. 2. Intact Lisfranc ligament. Electronically authenticated by: SASHA LO Date: 08/28/2023 10:59 Dictated By: Sasha Lo M.D. Signed By: 08/28/23 1102 DD/ 1059 TD/TT: Ict Business Analyst: The [address] [address] Magnetic Resonance Report Signed Patient: JONI CHILDRESS MR#: [id number] : 1995 Acct:[id number] Age/Sex: 27 / F ADM Date: 08/26/23 Loc: MRI Attending Dr: Yue Salas Ordering Physician: Yue Salas Date of Service: 08/26/23 Procedure(s): MR foot LT wo con Accession Number(s): [id number] cc: Yue Salas; Physician,Non-Staff Joana The [address] [address] Patient Name: LOTTIE CHILDRESS MRN: [id number] date: 1995 Sex: F Assigned Patient Location: MRI Current Patient Location: Accession/Order Numb er: [id number] Exam Date: 08/26/2023 15:50 Report Date: 08/28/2023 10:59 At the request of: YUE SALAS Procedure: MR foot LT wo con EXAM: MR foot LT wo con REASON FOR EXAM: Str ess fracture Left foot. TECHNIQUE: Multiplan ar, multisequence imaging of the left foot was performed without contrast COMPARISON: Radiogra [facility] 07/01/2023. FINDINGS: Study degraded by motion. The bone marrow sign al is without acute displaced fracture. There is linear signal involving the second metatarsal proximal diaphysis (series 8/9, image 8), this could refle ct a stress fracture. However, no significant marrow edema is identified and no significant periosteal edema identified. The midfoot appears congruent. L isfranc ligament is intact. The visualized ankle tendons appear intact. No ev idence of acute ligamentous injury identified. The plantar musculature demonstr ates normal bulk and signal. Remaining soft tissues are unremarkable. M R/MR foot LT wo con IMPRESSION: 1. Linear signal inv olving the proximal second metatarsal base could reflect a stress fracture, alt clovis no significant edema is identified. 2. Intact Lisfranc ligament. Electronically authe nticated by: SASHA LO Date: 08/28/2023 10:59 Dictated By: Sasha Kim M.D. Signed By: 08/28/23 1102 DD/ 1059 TD/TT: Ict Business Analyst: US right upper quadrant Reviewed date:05/07/2024 12:55:51 PM Interpretation: Performing Lab: Notes/Report: Source Facility: [place] [address] [place] [address] Ultrasound Report Signed Patient: LOTTIE CHILDRESS MR#: [id number] : 1995 Acct:[id number] Age/Sex: 28 / F ADM Date: 05/07/24 Loc: US Attending Dr: Diego Bangura M.D. Ordering Physician: Diego Bangura M.D. Date of Service: 05/07/24 Procedure(s): US right upper quadrant Accession Number(s): [id number] cc: Diego Bangura M.D.; Physician,Non-Staff M.D. The [address] [address] Patient Name: LOTTIE CHILDRESS MRN: [id number] date: 1995 Sex: F Assigned Patient Location: US Current Patient Location: US Accession/Order Number: [id number] Exam Date: 05/07/2024 10:28 Report Date: 05/07/2024 10:29 At the request of: DIEGO BANGURA MD Procedure: US right upper quadrant LIMITED RIGHT UPPER QUADRANT ULTRASOUND CLINICAL HISTORY: Right upper quadrant abdominal pain and nausea COMPARISON: None The gallbladder is physiologically distended without shadowing calculi, wall thickening or pericholecystic fluid. No intra- or extrahepatic biliary dilatation is evident. The common duct measures 4 - 5 mm. The liver is normal in echogenicity. No intrahepatic masses are seen. There is appropriate hepatopetal flow within the main portal vein. The pancreas shows no significant sonographic abnormality. Cursory evaluation of the right kidney reveals no hydronephrosis or fluid within Navarro's pouch. US/US right upper quadrant IMPRESSION: NEGATIVE ULTRASOUND OF THE RIGHT UPPER QUADRANT. Impression dictated by: Renee Ramos M.D.05/07/2024 10:29 AM Dictation Location: [place] [address] Electronically authenticated by: [id number] Y Date: 05/07/2024 10:29 Dictated By: Renee Ramos M.D. Signed By: 05/07/24 1032 DD/ 1029 TD/TT: Ict Business Analyst: [place] [address] Ultrasound Report Signed Patient: JONI CHILDRESS MR#: [id number] : 1995 Acct:[id number] Age/Sex: 28 / F ADM Date: 05/07/24 Loc: US Attending Dr: Diego Bangura M.D. Ordering Physician: Diego Bangura M.D. Date of Service: 05/07/24 Procedure(s): US rig ht upper quadrant Accession Number(s): [id number] cc: Diego Bangura M.D. ; Physician,Non-Staff M.D. The [address] [address] Patient Name: LOTTIE CHILDRESS MRN: [id number] date: 1995 Sex: F Assigned Patient Location: US Current Patient Location: US Accession/Order Numb er: [id number] Exam Date: 05/07/2024 10:28 Report Date: 05/07/2024 10:29 At the request of: DIEGO BANGURA MD Procedure: US right upper quadrant LIMITED RIGHT UPPER QUADRANT ULTRASOUND CLINICAL HISTORY: Ri ght upper quadrant abdominal pain and nausea COMPARISON: None The gallbladder is physiologically distended without shadowing calculi, wall thickening or perich olecystic fluid. No intra- or extrahepatic biliary dilatation is eviden t. The common duct measures 4 - 5 mm. The liver is normal in echogenici ty. No intrahepatic masses are seen. There is appropriate hepatopetal flow wit hin the main portal vein. The pancreas shows no significant sonograp hic abnormality. Cursory evaluation of the right kidney reveals no hydroneph rosis or fluid within Navarro's pouch. U S/US right upper quadrant IMPRESSION: NEGATIVE ULTRASOUND OF THE RIGHT UPPER QUADRANT. Impression dictated by: Renee Ramos M.D.05/07/2024 10:29 AM Dictation Location: [place] [address] Electronically authe nticated by: [id number] Y Date: 05/07/2024 10:29 Dictated By: Renee Ramos M.D. Signed By: 05/07/24 1032 DD/ 1029 TD/TT: Ict Business Analyst: Reason For Referral Diagnosis 1 Mouth abscess (K12.2 ) Referral Organization [facility] Referring Provider First Name Carey Referring Provider Last Name Willem Referring Provider Speciality Family Med icine Referred Provider Yanelis Patten Referred Provider Specialty Otolaryngolo gy Referral Priority Routine Medications Medication SIG (Take, Route, Frequency, Duration) Notes Start Date End Date Status Atomoxetine HCl 40 MG 1 capsule in the m orning Orally Once a day for 30 day(s) 08/04/2024 Active Qelbree 100 MG 1 capsule Orally Onc e a day for 30 days 08/24/2024 Active Triamcinolone Acetonide 0.1 % 1 application do not rinse afterwards and avoid eating or drinking for 30 minutes Mouth/Throat Twice a day for 30 days 08/04/2024 Active Social History Tobacco Use: Social History Observation Description Date Details (start date - stop date) Never Smoker NA - NA Tobacco Use/Smoking Question Answer Notes Patient is a nonsmoker AUDIT-C (Standard) Question Answer Notes Did you have a drink containing alcohol in the p ast year? 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) Active confirmed Problem 316084271120331 Metatarsalgia, left foot (M77.42) Active confirmed Problem 755291794 Stress fracture, right foot, subsequent encounter for fracture with routine healing (M84.374D) Active confirmed Problem Pain in right foot (419441504037937) Right foot pain (M79.671) Active confirmed Problem Right upper quadrant pain (859638456) Right upper quadrant abdominal pain (R10.11) Active confirmed Problem Chondromalacia (53730011) Chondromalacia of knee, 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) Active confirmed Problem Mucocele of mouth (disorder) (713681559) 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 Problem Attention deficit hyperactivity disorder (613363607) ADHD (F90.9) Active confirmed Vital Signs Heart Rate 80 /min 09/02/2023 Temperature 97.9 degrees Fahrenheit 09/02/2023 Respiratory Rate 16 /min 09/02/2023 Blood pressure diastolic 62 mm Hg 08/04/2024 Oximetry 97 % 09/02/2023 Height 65 in 08/04/2024 Blood pressure systolic 102 mm Hg 08/04/2024 Weight 131 lbs 08/04/2024 BMI 21.8 kg/m2 08/04/2024 Encounters Encounter Location Date Provider Diagnosis [facility] [address] [place] [address] 05/07/2024 Carey Hoy Right upper quadrant abdominal pain R10.11 [facility] [address] [facility] [place] [address] 08/24/2024 Carey Hoy Mouth abscess K12.2 [facility] [address] [place] [address] 04/28/2024 Carey Hoy Right upper quadrant abdominal pain R10.11 [facility] [address] [place] [address] 08/04/2024 Carey Hoy ADHD F90.9 and Mucocele of buccal mucosa K13.79 [facility] [address] [place] [address] [place] [address] 09/02/2023 Christos Mars Stress fracture, left foot, initial encounter for fracture M84.375A Assessments Encounter Date Diagnosis (ICD Code) Assessment Notes Treatment Notes Treatment Clinical Notes Section Notes 09/02/2023 Stress fracture, left foot, initial encounter for fracture (ICD-10 - M84.375A) Patient seen and evaluated. Patient education provided and MRI findings were reviewed with her. She relates that for about the last 3 weeks she has been doing regular abdominal and core exercises and for at least a week she has had no foot pain. She does however have a confirmed stress fracture in her second metatarsal but as she relates today this is not where she was having most of her pain. Regardless she is doing much better and currently having no pain therefore I recommended that she continue her core exercises and monitor foot pain and let us know if her pain recurs therefore follow-up as needed 04/28/2024 Right upper quadrant abdominal pain (ICD-10 - R10.11) 08/04/2024 ADHD (ICD-10 - F90.9) 08/04/2024 Mucocele of buccal mucosa (ICD-10 - K13.79) 05/07/2024 Right upper quadrant abdominal pain (ICD-10 - R10.11) 08/24/2024 Mouth abscess (ICD-10 - K12.2) Plan Of Treatment Pending Test Test Name Order Date C DIFF TOX PCR STOOL 05/07/2024 CMP - Comprehensive Metabolic Panel 04/11 AMYLASE 05/07/2024 CBC AUTO DIFF 05/07/2024 GLYCOHEMOGLOBIN A1C 05/07/2024 LIPASE 05/07/2024 SED RATE WESTERGREN 05/07/2024 US ABD 04/28/2024 MR foot LT wo con 08/28/2023 Insurance Providers Payer Name Payer Address Payer Phone Subscriber Number Group Number Insured Name Patient Relationship to Insured Coverage Start Date Coverage End Date [employer] [address] [address] [place] [phone] [id number] Lottie Childress Self - patient is the insured Medications Administered Medication Instructions Date of Administration Dosage Notes Celestone 6mg/mL 11/05/2022 0.5 mL Lidocaine HCl 11/05/2022 0.5 mL Medical (General) History Medical History History ICD Code right foot pain left foot pain Surgical History Surgery Date(Month/Year) No thyroid disease No surgical / procedural history Hospitalization History Reason Date(Month/Year) child 2022 see above
--- OUTSIDE RECORDS SUMMARY | 2024-08-25 19:02 | XMS_ITS | CCD ---
Author Organization [facility] Care Team Providers Care Home Sales Consultant Name Role Phone JEREMY ., DR SANTORO Admitting Unavailable JEREMY ., DR SANTORO Attending Unavailable JENNIFER ., DR CORTEZ Primary Care Unavailable JEREMY ., DR SANTORO Consulting Unavailable NIKOLAY, DR MASOOD Narayanan Consulting Unavailable NATAPRAWIRA, WARD Admitting Unavailable NATAPRAWIRA, WARD Attending Unavailable JENNIFER ., DR CORTEZ Primary Care Unavailable NATAPRAWIRA, WARD Consulting Unavailable NATAPRAWIRA, WARD Admitting Unavailable NATADRIRA, WARD Attending Unavailable JENNIFER ., DR CORTEZ Primary Care Unavailable NATAPRAWIRA, WARD Consulting Unavailable Chino Bangura MD Primary Care Provider [phone] SARITA APPIAH Referring Unavailable SARITA APPIAH Attending Unavailable SARITA APPIAH Referring Unavailable MAUDE LUNA Attending Unavailable Chino Bangura MD Primary Care Provider [phone] Medications Current Medications Medication Drug Class(es) Dates Sig (Normalized) Sig (Original) atomoxetine 40 mg oral capsule (2 sources) Norepinephrine Reuptake Inhibitor Start: 08-04-2024 atomoxetine (Strattera) 40 MG capsule 1 (one) time each day at the same time 08/04/2024 Active pantoprazole 40 mg delayed release oral tablet (2 sources) Proton Pump Inhibitor Start: 05-25-2024 take 1 tablet by mouth once daily pantoprazole (ProtoNix) 40 MG EC tablet Take 40 mg by mouth Daily 05/25/2024 Active sucralfate 1000 mg oral tablet (2 sources) Aluminum Complex Start: 04-27-2024 take 1 tablet by mouth four times daily Carafate 1 g tablet Take 1 tablet 4 times a day by oral route. 04/27/2024 Active Completed/Discontinued Medications Medication Drug Class(es) Dates Sig [...] Classification Problem Date Documented Da te Episodic/Chronic Abdominal pain (2 sources) Pain in female pelvis; Translations: [Pelvic and perineal pain] 08-12-2024 Episodic Diabetes or abnormal glucose tolerance complicating ; childbirth; or the puerperium (4 sources) Abnormal glucose complicating ; Translations: [ABNORMAL GLUCOSE COMP ] Onset: 06-06-2022 Episodic Other connective tissue disease (2 sources) Pain in bilateral legs; Translations: [Pain in right leg] 08-12-2024 Episodic Other non-traumatic joint disorders (2 sources) [...] saved to the permanent record in the [place] office, AP, lateral and sunrise views. [facility] XR Knee - right 3 Viewson Radiology Study observation (narrative) [facility] IGP,APTIMA HPV,AGE GDLNon AGE GDLN ACOG TESTING Note . [facility] Comment on above: TESTS RESULT FLAG UN [facility] REF RANGE LAB Clinician Provided Cytology Information Source.............Cervix No. of containers..01 ThinPrep Vial Age Algo ACOG Kimberly... FLAG LEGEND: L-Low Normal,H-High Normal,LL-Alert Low,HH-Alert High <-Panic Low,>-Panic High,A-Abnormal,AA-Critical Abnormal Performed at: 01 =G [address] [place] [address] Lisbet Rahman MD, IGP, RFX APTIMA HPV ASCU Note . [facility] Comment on above: TESTS RESULT FLAG UN ITS REF RANGE LAB DIAGNOSIS: 02 NEGATIVE FOR INTRAEPITHELIAL LESION OR MALIGNANCY. Specimen adequacy: 02 Satisfactory for evaluation. No endocervical component is identified. Performed by: Derek Schreiber Magnet Valve Assembler (ASC) . 02 Note: Note 02 The [...] Low,>-Panic High,A-Abnormal,AA-Critical Abnormal Performed at: [address] [facility] [address] [id number] Lisbet Rahman MD, Performed at: =G - [facility] [address] [id number] Fire Assistant: Lisbet Rahman MD, Phone: [phone] Performed at: - [facility] [id number] Fire Assistant: Lisbet Rahman MD, Phone: [phone] BRUSH-SPATULA CERVIX [facility] CBC AUTO DIFFon 07-20-2022 BASO # 0.1 103/ul Normal 0.0-0.1 [facility] Comment on above: Performed By: #### C BC #### [facility] [address] [place] [address] Dr. Gerardo Joshua Basophils/100 WBC (Bld) 0.5 % Normal 0.2-2.0 [facility] Comment on above: Performed By: #### C BC #### [facility] [address] [place] [address] Dr. Gerardo Joshua EO # 0.2 103/ul Normal 0.0-0.7 [facility] Comment on above: Performed By: #### C BC #### [facility] [address] [place] [address] Dr. Gerardo Joshua Eosinophils/100 WBC (Bld) 1.4 % Normal 0.9-7.0 [facility] Comment on above: Performed By: #### C BC #### [facility] [address] [place] [address] Dr. Gerardo Joshua Erythrocyte distribution width (RBC) [Ratio] 12.8 % Normal 11.0-15.0 [facility] Comment on above: Performed By: #### C BC #### [facility] [address] [place] [address] Dr. Gerardo Joshua Hematocrit (Bld) [Volume fraction] 37.3 % Normal 36.0-48.0 [facility] Comment on above: Performed By: #### C BC #### [facility] [address] [place] [address] Dr. Gerardo Joshua Hemoglobin (Bld) [Mass/Vol] 12.7 g/dL Normal 12.0-16.0 [facility] Comment on above: Performed By: #### C BC #### [facility] [address] [place] [address] Dr. Gerardo Joshua IG # 0.06 10e3/ul Critically high 0.00-0.03 [facility] Comment on above: Performed By: #### C BC #### [facility] [address] [place] [address] Dr. Gerardo Joshua IG % 0.5 % Normal 0.0-0.5 [facility] Comment on above: Performed By: #### C BC #### [facility] [address] [place] [address] Dr. Gerardo Joshua LYMPH # 2.3 103/ul Normal 1.2-3.8 [facility] Comment on above: Performed By: #### C BC #### [facility] [address] [place] [address] Dr. Gerardo Joshua Lymphocytes/100 WBC (Bld) 18.4 % Critically low 20.5-60.0 [facility] Comment on above: Performed By: #### C BC #### [facility] [address] [place] [address] Dr. Gerardo Joshua MANUAL DIFF REQ NO Normal [facility] Comment on above: Performed By: #### C BC #### [facility] [address] [place] [address] Dr. Gerardo Joshua MCH (RBC) [Entitic mass] 30.6 pg Normal 26.7-34.0 [facility] Comment on above: Performed By: #### C BC #### [facility] [address] [place] [address] Dr. Gerardo Joshua MCHC (RBC) [Mass/Vol] 34.0 g/dL Normal 29.9-35.2 [facility] Comment on above: Performed By: #### C BC #### [facility] [address] [place] [address] Dr. Gerardo Joshua MCV (RBC) [Entitic vol] 89.9 fL Normal 81.0-99.0 [facility] Comment on above: Performed By: #### C BC #### [facility] [address] [place] [address] Dr. Gerardo Joshua MONO # 0.9 103/ul Critically high 0.3-0.8 [facility] Comment on above: Performed By: #### C BC #### [facility] [address] [place] [address] Dr. Gerardo Joshua Monocytes/100 WBC (Bld) 7.3 % Normal 1.7-12.0 [facility] Comment on above: Performed By: #### C BC #### [facility] [address] [place] [address] Dr. Gerardo Joshua NEUT # 8.9 103/ul Critically high 1.4-6.5 [facility] Comment on above: Performed By: #### C BC #### [facility] [address] [place] [address] Dr. Gerardo Joshua Neutrophils/100 WBC (Bld) 71.9 % Normal 43.0-75.0 [facility] Comment on above: Performed By: #### C BC #### [facility] [address] [place] [address] Dr. Gerardo Joshua Platelet mean volume (Bld) [Entitic vol] 10.2 fL Normal 9.5-13.5 [facility] Comment on above: Performed By: #### C BC #### [facility] [address] [place] [address] Dr. Gerardo Joshua PLT 199 103/ul Normal 150-450 [facility] Comment on above: Performed By: #### C BC #### [facility] [address] [place] [address] Dr. Gerardo Joshua RBC 4.15 106/ul Critically low 4.20-5.40 [facility] Comment on above: Performed By: #### C BC #### [facility] [address] [place] [address] Dr. Gerardo Joshua WBC 12.4 103/ul Critically high 4.0-11.0 [facility] Comment on above: Performed By: #### C BC #### [facility] [address] [place] [address] Dr. Gerardo Joshua CBC AUTO DIFFon 07-19-2022 BASO # 0.0 103/ul Normal 0.0-0.1 [facility] Comment on above: Performed By: #### C BC #### [facility] [address] [place] [address] Dr. Gerardo Joshua Basophils/100 WBC (Bld) 0.4 % Normal 0.2-2.0 [facility] Comment on above: Performed By: #### C BC #### [facility] [address] [address] [address] Gerardo Joshua EO # 0.2 103/ul Normal 0.0-0.7 [facility] Comment on above: Performed By: #### C BC #### [facility] [address] [address] [address] Gerardo Joshua Eosinophils/100 WBC (Bld) 1.4 % Normal 0.9-7.0 [facility] Comment on above: Performed By: #### C BC #### [facility] [address] [place] [address] Dr. Gerardo Joshua Erythrocyte distribution width (RBC) [Ratio] 12.7 % Normal 11.0-15.0 [facility] Comment on above: Performed By: #### C BC #### [facility] [address] [place] [address] Dr. Gerardo Joshua Hematocrit (Bld) [Volume fraction] 41.6 % Normal 36.0-48.0 [facility] Comment on above: Performed By: #### C BC #### [facility] [address] [place] [address] Dr. Gerardo Joshua Hemoglobin (Bld) [Mass/Vol] 14.0 g/dL Normal 12.0-16.0 [facility] Comment on above: Performed By: #### C BC #### [facility] [address] [place] [address] Dr. Gerardo Joshua IG # 0.07 10e3/ul Critically high 0.00-0.03 [facility] Comment on above: Performed By: #### C BC #### [facility] [address] [place] [address] Dr. Gerardo Joshua IG % 0.7 % Critically high 0.0-0.5 [facility] Comment on above: Performed By: #### C BC #### [facility] [address] [place] [address] Dr. Gerardo Joshua LYMPH # 2.1 103/ul Normal 1.2-3.8 [facility] Comment on above: Performed By: #### C BC #### [facility] [address] [place] [address] Dr. Gerardo Joshua Lymphocytes/100 WBC (Bld) 19.2 % Critically low 20.5-60.0 [facility] Comment on above: Performed By: #### C BC #### [facility] [address] [place] [address] Dr. Gerardo Joshua MANUAL DIFF REQ NO Normal [facility] Comment on above: Performed By: #### C BC #### [facility] [address] [place] [address] Dr. Gerardo Joshua MCH (RBC) [Entitic mass] 30.0 pg Normal 26.7-34.0 [facility] Comment on above: Performed By: #### C BC #### [facility] [address] [place] [address] Dr. Gerardo Joshua MCHC (RBC) [Mass/Vol] 33.7 g/dL Normal 29.9-35.2 [facility] Comment on above: Performed By: #### C BC #### [facility] [address] [place] [address] Dr. Gerardo Joshua MCV (RBC) [Entitic vol] 89.3 fL Normal 81.0-99.0 [facility] Comment on above: Performed By: #### C BC #### [facility] [address] [place] [address] Dr. Gerardo Joshua MONO # 0.7 103/ul Normal 0.3-0.8 [facility] Comment on above: Performed By: #### C BC #### [facility] [address] [place] [address] Dr. Gerardo Joshua Monocytes/100 WBC (Bld) 6.8 % Normal 1.7-12.0 [facility] Comment on above: Performed By: #### C BC #### [facility] [address] [place] [address] Dr. Gerardo oJshua NEUT # 7.7 103/ul Critically high 1.4-6.5 [facility] Comment on above: Performed By: #### C BC #### [facility] [address] [address] [address] Gerardo Joshua Neutrophils/100 WBC (Bld) 71.5 % Normal 43.0-75.0 [facility] Comment on above: Performed By: #### C BC #### [facility] [address] [place] [address] Dr. Gerardo Joshua Platelet mean volume (Bld) [Entitic vol] 10.0 fL Normal 9.5-13.5 [facility] Comment on above: Performed By: #### C BC #### [facility] [address] [place] [address] Dr. Gerardo Joshua PLT 229 103/ul Normal 150-450 [facility] Comment on above: Performed By: #### C BC #### [facility] [address] [place] [address] Dr. Gerardo Joshua RBC 4.66 106/ul Normal 4.20-5.40 [facility] Comment on above: Performed By: #### C BC #### [facility] [address] [place] [address] Dr. Gerardo Joshua WBC 10.7 103/ul Normal 4.0-11.0 [facility] Comment on above: Performed By: #### C BC #### [facility] [address] [place] [address] Dr. Gerardo Joshua DRUG SCREEN RAPID (URINE)on 07-19-2022 AMP Negative Normal NEGATIVE [facility] Comment on above: Performed By: #### D RUGRPD #### [facility] [address] [place] [address] Dr. Gerardo Joshua BAR Negative Normal NEGATIVE [facility] Comment on above: Performed By: #### D RUGRPD #### [facility] [address] [place] [address] Dr. Gerardo Joshua BUP Negative Normal NEGATIVE [facility] Comment on above: Performed By: #### D RUGRPD #### [facility] [address] [place] [address] Dr. Gerardo Joshua BZO Negative Normal NEGATIVE [facility] Comment on above: Performed By: #### D RUGRPD #### [facility] [address] [address] [address] Gerardo Joshua ABBEY Negative Normal NEGATIVE [facility] Comment on above: Performed By: #### D RUGRPD #### [facility] [address] [place] [address] Dr. Gerardo Joshua CUT-OFFS SEE BELOW Normal [facility] Comment on above: Result Comment: AMP (Amphetamine): 500ng/mL, BAR (Barbituates): 200 ng/mL, BZO (Benzodiazepines): 150 ng/mL, BUP (Buprenorphine): 10 ng/mL, ABBEY (Cocaine): 150 ng/mL, mAMP (Methamphetamine): 500 ng/mL, MTD (Methadone): 200 ng/mL, OPI (Opiates): 100 ng/mL, OXY (Oxycodone): 100 ng/mL, PCP (Phencyclidine): 25 ng/mL, PPX (Propoxyphene): 300 ng/mL, THC (Cannabinoids): 50 ng/mL, TCA (Trycyclic Antidepressants): 300 ng/mL Performed By: #### D RUGRPD #### [facility] [address] [place] [address] Dr. Gerardo Joshua DRUG CUT HEADER DRUG CLASS TEST SYSTEM CUT-OFF CONCENTRATIONS ARE FOLLOWS: Normal [facility] Comment on above: Performed By: #### D RUGRPD #### [facility] [address] [place] [address] Dr. Gerardo Joshua mAMP Negative Normal NEGATIVE [facility] Comment on above: Performed By: #### D RUGRPD #### [facility] [address] [place] [address] Dr. Gerardo Joshua MTD Negative Normal NEGATIVE [facility] Comment on above: Performed By: #### D RUGRPD #### [facility] [address] [place] [address] Dr. Gerardo Joshua OPI Negative Normal NEGATIVE [facility] Comment on above: Performed By: #### D RUGRPD #### [facility] [address] [place] [address] Dr. Gerardo Joshua OXY Negative Normal NEGATIVE [facility] Comment on above: Performed By: #### D RUGRPD #### [facility] [address] [place] [address] Dr. Gerardo Joshua PCP Negative Normal NEGATIVE [facility] Comment on above: Performed By: #### D RUGRPD #### [facility] [address] [place] [address] Dr. Gerardo Joshua PPX Negative Normal NEGATIVE [facility] Comment on above: Performed By: #### D RUGRPD #### [facility] [address] [address] [address] Gerardo Joshua TCA Negative Normal NEGATIVE [facility] Comment on above: Performed By: #### D RUGRPD #### [facility] [address] [place] [address] Dr. Gerardo Joshua THC Negative Normal NEGATIVE [facility] Comment on above: Performed By: #### D RUGRPD #### [facility] [address] [place] [address] Dr. Gerardo Joshua TYPE AND SCREENon 07-19-2022 TYPE AND SCREEN Negative Normal [facility] Comment on above: Performed By: #### T NS #### [facility] [address] [place] [address] Dr. Gerardo Joshua US PREG PLACENTAon 3 [...] MASOOD LINK Date: 2022-07-19 07:16 Normal [facility] GTT 3 HR PREGon 06-06-2022 Glucose [Mass/Vol] 86 mg/dL Normal 74-106 [facility] Comment on above: Performed By: #### G TT3P #### [facility] [address] [place] [address] Dr. Gerardo Joshua Glucose [Mass/Vol] 159 mg/dL Normal [facility] Comment on above: Performed By: #### G TT3P #### [facility] [address] [place] [address] Dr. Gerardo Joshua Glucose [Mass/Vol] 137 mg/dL Normal [facility] Comment on above: Performed By: #### G TT3P #### [facility] [address] [place] [address] Dr. Gerardo Joshua Glucose [Mass/Vol] 53 mg/dL Normal [facility] Comment on above: Performed By: #### G TT3P #### [facility] [address] [place] [address] Dr. Gerardo Joshua CBC AUTO DIFFon 05-28-2022 BASO # 0.0 103/ul Normal 0.0-0.1 [facility] Comment on above: Performed By: #### C BC #### [facility] [address] [place] [address] Dr. Gerardo Joshua Basophils/100 WBC (Bld) 0.5 % Normal 0.2-2.0 [facility] Comment on above: Performed By: #### C BC #### [facility] [address] [place] [address] Dr. Gerardo Joshua EO # 0.2 103/ul Normal 0.0-0.7 [facility] Comment on above: Performed By: #### C BC #### [facility] [address] [place] [address] Dr. Gerardo Joshua Eosinophils/100 WBC (Bld) 1.9 % Normal 0.9-7.0 [facility] Comment on above: Performed By: #### C BC #### [facility] [address] [place] [address] Dr. Gerardo Joshua Erythrocyte distribution width (RBC) [Ratio] 13.2 % Normal 11.0-15.0 [facility] Comment on above: Performed By: #### C BC #### [facility] [address] [place] [address] Dr. Gerardo Joshua Hematocrit (Bld) [Volume fraction] 36.1 % Normal 36.0-48.0 [facility] Comment on above: Performed By: #### C BC #### [facility] [address] [place] [address] Dr. Gerardo Joshua Hemoglobin (Bld) [Mass/Vol] 12.1 g/dL Normal 12.0-16.0 [facility] Comment on above: Performed By: #### C BC #### [facility] [address] [place] [address] Dr. Gerardo Joshua IG # 0.03 10e3/ul Normal 0.00-0.03 [facility] Comment on above: Performed By: #### C BC #### [facility] [address] [place] [address] Dr. Gerardo Joshua IG % 0.4 % Normal 0.0-0.5 [facility] Comment on above: Performed By: #### C BC #### [facility] [address] [place] [address] Dr. Gerardo Joshua LYMPH # 1.6 103/ul Normal 1.2-3.8 [facility] Comment on above: Performed By: #### C BC #### [facility] [address] [place] [address] Dr. Gerardo Joshua Lymphocytes/100 WBC (Bld) 20.1 % Critically low 20.5-60.0 [facility] Comment on above: Performed By: #### C BC #### [facility] [address] [place] [address] Dr. Gerardo Joshua MANUAL DIFF REQ NO Normal [facility] Comment on above: Performed By: #### C BC #### [facility] [address] [place] [address] Dr. Gerardo Joshua MCH (RBC) [Entitic mass] 30.0 pg Normal 26.7-34.0 [facility] Comment on above: Performed By: #### C BC #### [facility] [address] [place] [address] Dr. Gerardo Joshua MCHC (RBC) [Mass/Vol] 33.5 g/dL Normal 29.9-35.2 [facility] Comment on above: Performed By: #### C BC #### [facility] [address] [place] [address] Dr. Gerardo Joshua MCV (RBC) [Entitic vol] 89.6 fL Normal 81.0-99.0 [facility] Comment on above: Performed By: #### C BC #### [facility] [address] [place] [address] Dr. Gerardo Joshua MONO # 0.5 103/ul Normal 0.3-0.8 [facility] Comment on above: Performed By: #### C BC #### [facility] [address] [place] [address] Dr. Gerardo Joshua Monocytes/100 WBC (Bld) 6.8 % Normal 1.7-12.0 [facility] Comment on above: Performed By: #### C BC #### [facility] [address] [place] [address] Dr. Gerardo Joshua NEUT # 5.4 103/ul Normal 1.4-6.5 [facility] Comment on above: Performed By: #### C BC #### [facility] [address] [place] [address] Dr. Gerardo Joshua Neutrophils/100 WBC (Bld) 70.3 % Normal 43.0-75.0 [facility] Comment on above: Performed By: #### C BC #### [facility] [address] [place] [address] Dr. Gerardo Joshua Platelet mean volume (Bld) [Entitic vol] 9.3 fL Critically low 9.5-13.5 [facility] Comment on above: Performed By: #### C BC #### [facility] [address] [place] [address] Dr. Gerardo Joshua PLT 230 103/ul Normal 150-450 [facility] Comment on above: Performed By: #### C BC #### [facility] [address] [place] [address] Dr. Gerardo Joshua RBC 4.03 106/ul Critically low 4.20-5.40 [facility] Comment on above: Performed By: #### C BC #### [facility] [address] [address] [address] Gerardo Joshua WBC 7.7 103/ul Normal 4.0-11.0 [facility] Comment on above: Performed By: #### C BC #### [facility] [address] [address] [address] Gerardo Joshua GLUCOSE - 1HRon 05-28-2022 Glucose [Mass/Vol] 154 mg/dL Critically high 74-106 T [facility] Comment on above: Performed By: #### G LU1HR #### [facility] [address] [address] [address] Gerardo Joshua Complete Blood Count Auto Di ffon 12-05-2020 Basophils (Bld) [#/Vol] 0.1 10*3/uL Normal 0.0-0.2 [facility] Comment on above: Order Comment: Name Collection Type:: Clean-Voided Midstream Result Comment: PERF ORMED BY: [place] [address] PATHOLOGIST EARRING MAKER FIDENCIO LOW M.D. Performed By: #### A EAN OBUDS #### [facility] [address] [place] [address] [place] Basophils/100 WBC (Bld) 0.5 % Normal . [facility] Comment on above: Order Comment: Name Collection Type:: Clean-Voided Midstream Performed By: #### A EAN OBUDS #### [facility] [address] [place] [address] [place] Eosinophils (Bld) [#/Vol] 0.1 10*3/uL Normal 0.0-0.45 [facility] Comment on above: Order Comment: Name Collection Type:: Clean-Voided Midstream Performed By: #### A EAN OBUDS #### [facility] [address] [place] [address] [place] Eosinophils/100 WBC (Bld) 0.9 % Normal . [facility] Comment on above: Order Comment: Name Collection Type:: Clean-Voided Midstream Performed By: #### A DDONUAPLUS OBUDS #### [address] Erythrocyte distribution width (RBC) [Ratio] 13.1 % Normal 11.9-15.3 [facility] Comment on above: Order Comment: Name Collection Type:: Clean-Voided Midstream Performed By: #### A DDONUAPLUS OBUDS #### [address] Hematocrit (Bld) [Volume fraction] 33.9 % Low 34.0-46.4 [facility] Comment on above: Order Comment: Name Collection Type:: Clean-Voided Midstream Performed By: #### A DDONUAPLUS OBUDS #### [address] Hemoglobin (Bld) [Mass/Vol] 11.8 g/dL Normal 11.8-15.4 [facility] Comment on above: Order Comment: Name Collection Type:: Clean-Voided Midstream Performed By: #### A DDONUAPLUS OBUDS #### [address] Lymphocytes (Bld) [#/Vol] 1.5 10*3/uL Normal 1.00-4.8 [facility] Comment on above: Order Comment: Name Collection Type:: Clean-Voided Midstream Performed By: #### A DDONUAPLUS OBUDS #### [address] Lymphocytes/100 WBC (Bld) 13.5 % Normal . [facility] Comment on above: Order Comment: Name Collection Type:: Clean-Voided Midstream Performed By: #### A DDONUAPLUS OBUDS #### [address] MCH (RBC) [Entitic mass] 31.9 pg Normal 24.7-34.3 [facility] Comment on above: Order Comment: Name Collection Type:: Clean-Voided Midstream Performed By: #### A DDONUAPLUS, OBUDS #### [address] MCV (RBC) [Entitic vol] 91.6 fL Normal 80-100 [facility] Comment on above: Order Comment: Name Collection Type:: Clean-Voided Midstream Performed By: #### A DDONUAPLUS, OBUDS #### [address] Mean Corpuscular HGB Conc 34.9 g/dL Normal 32.0-35.0 [facility] Comment on above: Order Comment: Name Collection Type:: Clean-Voided Midstream Performed By: #### A DDONUAPLUS, OBUDS #### [address] Monocytes (Bld) [#/Vol] 0.7 10*3/uL Normal 0.0-0.8 [facility] Comment on above: Order Comment: Name Collection Type:: Clean-Voided Midstream Performed By: #### A DDONUAPLUS, OBUDS #### [address] Monocytes/100 WBC (Bld) 6.2 % Normal . [facility] Comment on above: Order Comment: Name Collection Type:: Clean-Voided Midstream Performed By: #### A DDONUAPLUS, OBUDS #### [place] [id number] [place] Neutrophils (Bld) [#/Vol] 9.0 10*3/uL High 1.8-7.7 [facility] Comment on above: Order Comment: Name Collection Type:: Clean-Voided Midstream Performed By: #### A DDONUAPLUS, OBUDS #### [place] [id number] [place] Neutrophils/100 WBC (Bld) 78.9 % Normal . [facility] Comment on above: Order Comment: Name Collection Type:: Clean-Voided Midstream Performed By: #### A DDONUAPLUS, OBUDS #### [address] Nucleated RBC/100 WBC (Bld) [Ratio] 0.0 % Normal 0-0.5 [facility] Comment on above: Order Comment: Name Collection Type:: Clean-Voided Midstream Performed By: #### A DDONUAPLUS OBUDS #### [address] Platelet mean volume (Bld) [Entitic vol] 10.1 fL Normal 6.3-10.7 [facility] Comment on above: Order Comment: Name Collection Type:: Clean-Voided Midstream Performed By: #### A DDONUAPLUS OBUDS #### [address] Platelets (Bld) [#/Vol] 140 10*3/uL Low 150-450 [facility] Comment on above: Order Comment: Name Collection Type:: Clean-Voided Midstream Performed By: #### A DDONUAPLUS OBUDS #### [place] [id number] [place] RBC (Bld) [#/Vol] 3.70 10*6/uL Normal 3.60-5.00 [facility] Comment on above: Order Comment: Name Collection Type:: Clean-Voided Midstream Performed By: #### A DDONUAPLUS OBUDS #### [place] [id number] [place] WBC (Bld) [#/Vol] 11.5 10*3/uL High 4.5-11.0 [facility] Comment on above: Order Comment: Name Collection Type:: Clean-Voided Midstream Performed By: #### A DDONUAPLUS OBUDS #### [address] ABO/RH Typeon 12-04-2020 ABO and Rh group Nom (Bld) Blood group A Rh(D) positive Normal [facility] Comment on above: Result Comment: PERF ORMED BY: [place] [address] PATHOLOGIST EARRING MAKER FIDENCIO LOW M.D. COVID-19 Antigenon 1 COVID-19 [...] its performance Pernell Disclaimer characteristic determined by [employer] and Pernell Disclaimer validated at [facility]. This Pernell Disclaimer test has not [...] Emergency Use Authorization for Coronavirus Pernell Disclaimer iseas during the Public Health Emergency) Pernell Disclaimer [...] is terminated or revoked sooner. PERFORMED BY: [place] [address] PATHOLOGIST EARRING MAKER FIDENCIO LOW M.D. Normal [facility] Comment on above: Performed By: #### S OFRONALDEG, COVID-19 PERNELL #### [address] Complete Blood Count Auto Di ffon 12-04-2020 Basophils (Bld) [#/Vol] 0.0 10*3/uL Normal 0.0-0.2 [facility] Comment on above: Result Comment: PERF ORMED BY: [place] [address] PATHOLOGIST EARRING MAKER FIDENCIO LOW M.D. Performed By: #### C BC #### [address] Basophils/100 WBC (Bld) 0.4 % Normal . [facility] Comment on above: Performed By: #### C BC #### [address] [address] [place] Eosinophils (Bld) [#/Vol] 0.1 10*3/uL Normal 0.0-0.45 [facility] Comment on above: Performed By: #### C BC #### [address] Eosinophils/100 WBC (Bld) 0.7 % Normal . [facility] Comment on above: Performed By: #### C BC #### [address] Erythrocyte distribution width (RBC) [Ratio] 13.1 % Normal 11.9-15.3 [facility] Comment on above: Performed By: #### C BC #### [address] Hematocrit (Bld) [Volume fraction] 37.4 % Normal 34.0-46.4 [facility] Comment on above: Performed By: #### C BC #### [address] Hemoglobin (Bld) [Mass/Vol] 13.1 g/dL Normal 11.8-15.4 [facility] Comment on above: Performed By: #### C BC #### [address] Lymphocytes (Bld) [#/Vol] 2.0 10*3/uL Normal 1.00-4.8 [facility] Comment on above: Performed By: #### C BC #### [address] Lymphocytes/100 WBC (Bld) 19.4 % Normal . [facility] Comment on above: Performed By: #### C BC #### [address] MCH (RBC) [Entitic mass] 31.7 pg Normal 24.7-34.3 [facility] Comment on above: Performed By: #### C BC #### [address] MCV (RBC) [Entitic vol] 90.4 fL Normal 80-100 [facility] Comment on above: Performed By: #### C BC #### [facility] [address] Mean Corpuscular HGB Conc 35.1 g/dL High 32.0-35.0 [facility] Comment on above: Performed By: #### C BC #### [facility] [address] [place] [address] [place] Monocytes (Bld) [#/Vol] 0.8 10*3/uL Normal 0.0-0.8 [facility] Comment on above: Performed By: #### C BC #### [facility] [address] [place] [address] [place] Monocytes/100 WBC (Bld) 8.3 % Normal . [facility] Comment on above: Performed By: #### C BC #### [facility] [address] Neutrophils (Bld) [#/Vol] 7.3 10*3/uL Normal 1.8-7.7 [facility] Comment on above: Performed By: #### C BC #### [facility] [address] [place] [address] [place] Neutrophils/100 WBC (Bld) 71.2 % Normal . [facility] Comment on above: Performed By: #### C BC #### [facility] [address] [place] [address] [place] Nucleated RBC/100 WBC (Bld) [Ratio] 0.1 % Normal 0-0.5 [facility] Comment on above: Performed By: #### C BC #### [facility] [address] [place] [id number] [place] Platelet mean volume (Bld) [Entitic vol] 10.0 fL Normal 6.3-10.7 [facility] Comment on above: Performed By: #### C BC #### [facility] [address] [place] [address] [place] Platelets (Bld) [#/Vol] 155 10*3/uL Normal 150-450 [facility] Comment on above: Performed By: #### C BC #### [facility] [address] RBC (Bld) [#/Vol] 4.13 10*6/uL Normal 3.60-5.00 [facility] Comment on above: Performed By: #### C BC #### [facility] [address] WBC (Bld) [#/Vol] 10.2 10*3/uL Normal 4.5-11.0 [facility] Comment on above: Performed By: #### C BC #### [facility] [address] Comprehensive Metabolic Pane claudia 12-04-2020 Albumin [Mass/Vol] 2.6 g/dL Low 3.2-5.5 [facility] Comment on above: Performed By: #### C MP #### [address] Albumin/Globulin [Mass ratio] 0.9 {ratio} Normal [facility] Comment on above: Performed By: #### C MP #### [address] ALP [Catalytic activity/Vol] 129 U/L High 32-92 [facility] Comment on above: Performed By: #### C MP #### [place] [id number] [facility] ALT [Catalytic activity/Vol] 54 U/L Normal 10-60 [facility] Comment on above: Performed By: #### C MP #### [address] AST [Catalytic activity/Vol] 36 U/L Normal 10-42 [facility] Comment on above: Performed By: #### C MP #### [address] Bilirubin [Mass/Vol] 0.5 mg/dL Normal 0.3-1.2 [facility] Comment on above: Performed By: #### C MP #### [address] Calcium [Mass/Vol] 8.8 mg/dL Normal 8.2-10.2 [facility] Comment on above: Performed By: #### C MP #### [facility] [address] Chloride [Moles/Vol] 108 mmol/L Normal 95-114 [facility] Comment on above: Performed By: #### C MP #### [facility] [address] CO2 [Moles/Vol] 20.4 mmol/L Low 22.0-30.0 [facility] Comment on above: Performed By: #### C MP #### [address] Creatinine [Mass/Vol] 0.81 mg/dL Normal 0.44-1.03 [facility] Comment on above: Performed By: #### C MP #### [address] Creatinine Clr Calc Pharmacy 97.66 [facility] Comment on above: Result Comment: PERF ORMED BY: [place] [address] PATHOLOGIST EARRING MAKER FIDENCIO LOW M.D. Performed By: #### C MP #### [address] Estimated GFR ( Mady > 60 [facility] Comment on above: Result Comment: GFR estimated reference range: According to KDOQI guidelines, <60 ml/min/1.73m2 is sufficient to diagnose a patient with chronic kidney disease. Performed By: #### C MP #### [address] Estimated GFR (Non- Am > 60 [facility] Comment on above: Performed By: #### C MP #### [address] Globulin (S) [Mass/Vol] 2.8 g/dL [facility] Comment on above: Performed By: #### C MP #### [address] Glucose [Mass/Vol] 86 mg/dL Normal 70-100 [facility] Comment on above: Result Comment: [facility] Glucose Reference Range is dependent on time and content of last meal. Glucose of more than 200 mg/dL in a nonstressed, ambulatory subject supports the diagnosis of Diabetes Mellitus. ADA recommended reference range Performed By: #### C MP #### [address] Potassium [Moles/Vol] 3.4 mmol/L Low 3.5-5.1 [facility] Comment on above: Performed By: #### C MP #### [address] Protein [Mass/Vol] 5.4 g/dL Low 6.1-7.9 [facility] Comment on above: Performed By: #### C MP #### [address] Sodium [Moles/Vol] 138 mmol/L Normal 136-146 [facility] Comment on above: Performed By: #### C MP #### [address] Urea nitrogen [Mass/Vol] 9 mg/dL Normal 9-23 [facility] Comment on above: Performed By: #### C MP #### [address] 12-04-2020 L - -------- Specimen: [id number] Received: 12/04/20 Status: ADAN Lara Num: [id number] Spec Type: Surgical Subm Dr: Gwen Jhaveri DO Tissues: A Placenta - 3rd Trimester (Greater than 28 weeks) (PLACENTA AND CORD) Procedures: HE Stain/6, Gross/Micro L5 -------- Patient Age/Sex Location Account Attending Physician -------- Lottie Childress 25/F 3S [id number] Yonis Augustin DO -------- SPEC NUM: [id number] RECD: 12/04/201329 STATUS: ADAN LARA NUM: [id number] CLAUDINE: 12/04/20- [facility] DR: Gwen Jhaveri DO ENTERED: 12/04/20-[address]: GRIS TYPE: Surgical DEPT: S ENTERED BY: [id number] RECV BY: [id number] ORDERED: HE Stain/6, Gross/Micro L5 ORDERED: HE [...] cm aggregate of red gelatinous blood clot. [employer] sections are submitted in 6 cassettes as follows: A1 - end of the umbilical cord and membrane roll A2 - Maternal end of the umbilical cord and membrane roll -------- Specimen: [id number] Received: 12/04/20 Status: ADAN Lara Num: [id number] Spec Type: Surgical Subm Dr: Gwen Jhaveri, Tissues: A Placenta - 3rd Trimester (Greater than 28 weeks) (PLACENTA AND CORD) Procedures: HE Stain/6, Gross/Micro L5 -------- Patient: Lottie Childress [id number] (Continued) -------- Specimen: [id number] Received: 12/04/20 (Continued) Gross Description (Continued) Signed (signature on file) Fidencio Low MD 12/07/20 1714 -------- Specimen: [id number] Received: 12/04/20 Status: ADAN Lara Num: [id number] Spec Type: Surgical Subm Dr: Gwen Jhaveri DO Tissues: A Placenta - 3rd Trimester (Greater than 28 weeks) (PLACENTA AND CORD) Procedures: KAREN Govea/Kathy, Jameel/Aletha L5 -------- Patient: Lottie Childress [id number] (Continued) -------- Specimen: [id number] Received: 12/04/20 (Continued) Gross Description (Continued) A3 - Central placental disc A4 - Peripheral placental disc A5 - Edematous umbilical cord A6 - Lesions (SM/JS) Microscopic Description Six glass slides with H E stained material have been examined. The microscopic findings support the above pathologic diagnosis. [id number] -------- -------- Specimen: [id number] Received: 12/04/20 Status: ADAN Lara Num: [id number] Spec Type: Surgical Subm Dr: Gwen Jhaveri DO Tissues: A Placenta - 3rd Trimester (Greater than 28 weeks) (PLACENTA AND CORD) Procedures: HE Stain/6, Gross/Micro L5 -------- (more content not included)... [facility] Protein Creat Ratio Spencer Steph bety 12-04-2020 Creatinine, Urine (Random) 82.8 mg/dL Normal [facility] Comment on above: Result Comment: No r eference range established Performed By: #### P ROCRERAT #### [address] Protein (U) [Mass/Vol] 354 mg/dL High 0-9 [facility] Comment on above: Performed By: #### P ROCRERAT #### [address] Urine Protein/Creatinine Ratio 4275 mg/g{Cre} High 0-200 [facility] Comment on above: Result Comment: PERF ORMED BY: [place] [address] PATHOLOGIST EARRING MAKER FIDENCIO LOW M.D. Performed By: #### P ROCRERAT #### [address] RPR w/rfx to Quant TP Abson 12-04-2020 RPR, Rfx Quant RPR Non-Reactive Normal Non Reactive [facility] Comment on above: Result Comment: Perf ormed at: - [facility] [address] [id number] Fire Assistant: Andre Toledo PhD, Phone: [phone] PERFORMED BY: [place] [address] PATHOLOGIST EARRING MAKER FIDENCIO LOW M.D. Performed By: #### A DDONUAPLUS, OBUDS #### [address] Pernell Ag Negativeon 12-05-19 Pernell Ag Negative Negative Normal Negative [facility] Comment on above: Result Comment: This is a duplicate Pernell SARS Antigen (NASH) result to be used for statistical tracking purpose only. PERFORMED BY: [place] [address] PATHOLOGIST EARRING MAKER FIDENCIO LOW M.D. Performed By: #### S OFELAINE COVID-19 PERNELL #### [address] Complete Blood Count Auto Di ffon 12-03-2020 Basophils (Bld) [#/Vol] 0.1 10*3/uL Normal 0.0-0.2 [facility] Comment on above: Result Comment: PERF ORMED BY: [place] [address] PATHOLOGIST EARRING MAKER FIDENCIO LOW M.D. Performed By: #### C BC #### [address] Basophils/100 WBC (Bld) 0.8 % Normal . [facility] Comment on above: Performed By: #### C BC #### [address] Eosinophils (Bld) [#/Vol] 0.2 10*3/uL Normal 0.0-0.45 [facility] Comment on above: Performed By: #### C BC #### [address] Eosinophils/100 WBC (Bld) 1.5 % Normal . [facility] Comment on above: Performed By: #### C BC #### [address] Erythrocyte distribution width (RBC) [Ratio] 12.8 % Normal 11.9-15.3 [facility] Comment on above: Performed By: #### C BC #### [address] Hematocrit (Bld) [Volume fraction] 39.0 % Normal 34.0-46.4 [facility] Comment on above: Performed By: #### C BC #### [address] Hemoglobin (Bld) [Mass/Vol] 13.7 g/dL Normal 11.8-15.4 [facility] Comment on above: Performed By: #### C BC #### [place] [id number] [place] Lymphocytes (Bld) [#/Vol] 1.7 10*3/uL Normal 1.00-4.8 [facility] Comment on above: Performed By: #### C BC #### [place] [id number] [place] Lymphocytes/100 WBC (Bld) 16.5 % Normal . [facility] Comment on above: Performed By: #### C BC #### [address] MCH (RBC) [Entitic mass] 31.8 pg Normal 24.7-34.3 [facility] Comment on above: Performed By: #### C BC #### [address] MCV (RBC) [Entitic vol] 90.3 fL Normal 80-100 [facility] Comment on above: Performed By: #### C BC #### [address] Mean Corpuscular HGB Conc 35.2 g/dL High 32.0-35.0 [facility] Comment on above: Performed By: #### C BC #### [place] [id number] [place] Monocytes (Bld) [#/Vol] 0.9 10*3/uL High 0.0-0.8 [facility] Comment on above: Performed By: #### C BC #### [address] Monocytes/100 WBC (Bld) 9.0 % Normal . [facility] Comment on above: Performed By: #### C BC #### [place] [id number] [place] Neutrophils (Bld) [#/Vol] 7.4 10*3/uL Normal 1.8-7.7 [facility] Comment on above: Performed By: #### C BC #### [address] Neutrophils/100 WBC (Bld) 72.2 % Normal . [facility] Comment on above: Performed By: #### C BC #### [facility] [address] Nucleated RBC/100 WBC (Bld) [Ratio] 0.0 % Normal 0-0.5 [facility] Comment on above: Performed By: #### C BC #### [facility] [address] Platelet mean volume (Bld) [Entitic vol] 10.2 fL Normal 6.3-10.7 [facility] Comment on above: Performed By: #### C BC #### [address] Platelets (Bld) [#/Vol] 165 10*3/uL Normal 150-450 [facility] Comment on above: Performed By: #### C BC #### [address] RBC (Bld) [#/Vol] 4.32 10*6/uL Normal 3.60-5.00 [facility] Comment on above: Performed By: #### C BC #### [address] WBC (Bld) [#/Vol] 10.3 10*3/uL Normal 4.5-11.0 [facility] Comment on above: Performed By: #### C BC #### [address] Comprehensive Metabolic Pane claudia 12-03-2020 Albumin [Mass/Vol] 2.6 g/dL Low 3.2-5.5 [facility] Comment on above: Performed By: #### C MP #### [address] Albumin/Globulin [Mass ratio] 0.9 {ratio} Normal [facility] Comment on above: Performed By: #### C MP #### [address] ALP [Catalytic activity/Vol] 143 U/L High 32-92 [facility] Comment on above: Performed By: #### C MP #### [facility] [address] ALT [Catalytic activity/Vol] 61 U/L High 10-60 [facility] Comment on above: Performed By: #### C MP #### [facility] [address] AST [Catalytic activity/Vol] 41 U/L Normal 10-42 [facility] Comment on above: Performed By: #### C MP #### [facility] [address] Bilirubin [Mass/Vol] 0.7 mg/dL Normal 0.3-1.2 [facility] Comment on above: Performed By: #### C MP #### [address] Calcium [Mass/Vol] 9.0 mg/dL Normal 8.2-10.2 [facility] Comment on above: Performed By: #### C MP #### [address] Chloride [Moles/Vol] 107 mmol/L Normal 95-114 [facility] Comment on above: Performed By: #### C MP #### [address] CO2 [Moles/Vol] 20.8 mmol/L Low 22.0-30.0 [facility] Comment on above: Performed By: #### C MP #### [address] Creatinine [Mass/Vol] 0.89 mg/dL Normal 0.44-1.03 [facility] Comment on above: Performed By: #### C MP #### [address] Creatinine Clr Calc Pharmacy 88.89 Normal [facility] Comment on above: Result Comment: PERF ORMED BY: [place] [address] PATHOLOGIST EARRING MAKER FIDENCIO LOW M.D. Performed By: #### C MP #### [facility] [address] [place] [address] [place] Estimated GFR ( Mady > 60 Normal [facility] Comment on above: Result Comment: GFR estimated reference range: According to KDOQI guidelines, <60 ml/min/1.73m2 is sufficient to diagnose a patient with chronic kidney disease. Performed By: #### C MP #### [facility] [address] Estimated GFR (Non- Am > 60 Normal [facility] Comment on above: Performed By: #### C MP #### [address] Globulin (S) [Mass/Vol] 3.0 g/dL Normal [facility] Comment on above: Performed By: #### C MP #### [address] Glucose [Mass/Vol] 90 mg/dL Normal 70-100 [facility] Comment on above: Result Comment: [place] Glucose Reference Range is dependent on time and content of last meal. Glucose of more than 200 mg/dL in a nonstressed, ambulatory subject supports the diagnosis of Diabetes Mellitus. ADA recommended reference range Performed By: #### C MP #### [address] Potassium [Moles/Vol] 3.8 mmol/L Normal 3.5-5.1 [facility] Comment on above: Performed By: #### C MP #### [place] [id number] [place] Protein [Mass/Vol] 5.6 g/dL Low 6.1-7.9 [facility] Comment on above: Performed By: #### C MP #### [place] [id number] [place] Sodium [Moles/Vol] 137 mmol/L Normal 136-146 [facility] Comment on above: Performed By: #### C MP #### [address] Urea nitrogen [Mass/Vol] 11 mg/dL Normal 9-23 [facility] Comment on above: Performed By: #### C MP #### [facility] [address] [place] [address] [place] Dipstick and Microscopicon 0 12-03-2020 Appearance (U) Clear Normal Clear [facility] Comment on above: Order Comment: Name Collection Type:: Clean-Voided Midstream Performed By: #### A DDONUAPLUS, OBUDS #### [place] [id number] [place] Bacteria,Urine None Seen Normal None Seen [facility] Comment on above: Order Comment: Name Collection Type:: Clean-Voided Midstream Performed By: #### A DDONUAPLUS, OBUDS #### [place] [id number] [place] Bilirubin,Urine Negative Normal Negative [facility] Comment on above: Order Comment: Name Collection Type:: Clean-Voided Midstream Performed By: #### A DDONUAPLUS, OBUDS #### [address] Color (U) Yellow Normal Yellow [facility] Comment on above: Order Comment: Name Collection Type:: Clean-Voided Midstream Performed By: #### A DDONUAPLUS, OBUDS #### [address] Glucose Ql (U) Normal Normal Normal [facility] Comment on above: Order Comment: Name Collection Type:: Clean-Voided Midstream Performed By: #### A DDONUAPLUS, OBUDS #### [place] [id number] [place] Hyaline Casts,Urine 0-8 Normal 0-8 [facility] Comment on above: Order Comment: Name Collection Type:: Clean-Voided Midstream Result Comment: PERF ORMED BY: [place] [address] PATHOLOGIST EARRING MAKER FIDENCIO LOW M.D. Performed By: #### A DDONUAPLUS, OBUDS #### [place] [id number] [place] Ketones Ql (U) Negative Normal Negative [facility] Comment on above: Order Comment: Name Collection Type:: Clean-Voided Midstream Performed By: #### A EAN OBUDS #### [address] Leukocyte esterase Test strip Ql (U) Negative Normal Negative [facility] Comment on above: Order Comment: Name Collection Type:: Clean-Voided Midstream Performed By: #### A EAN OBUDS #### [place] [id number] [place] Nitrite,Urine Negative Normal Negative [facility] Comment on above: Order Comment: Name Collection Type:: Clean-Voided Midstream Performed By: #### A EAN OBUDS #### [address] Occult Blood,Urine 1+ High Negative [facility] Comment on above: Order Comment: Name Collection Type:: Clean-Voided Midstream Result Comment: PERF ORMED BY: [place] [address] PATHOLOGIST EARRING MAKER FIDENCIO LOW M.D. Performed By: #### A EAN OBUDS #### [address] pH (U) 7.0 [pH] Normal 5.0-9.0 [facility] Comment on above: Order Comment: Name Collection Type:: Clean-Voided Midstream Performed By: #### A EAN OBUDS #### [address] Protein (U) [Mass/Vol] 300 mg/dL High Negative [facility] Comment on above: Order Comment: Name Collection Type:: Clean-Voided Midstream Performed By: #### A EAN OBUDS #### [address] RBC,Urine 3-4 Normal 0-4 [facility] Comment on above: Order Comment: Name Collection Type:: Clean-Voided Midstream Performed By: #### A DDONUAPLUS, OBUDS #### [address] Specificy [place],Urine 1.012 Normal 1.001-1.030 [facility] Comment on above: Order Comment: Name Collection Type:: Clean-Voided Midstream Performed By: #### A DDONUAPLUS, OBUDS #### [address] Squamous Epithelial Cell,Urine 0-1 Normal 0-2 [facility] Comment on above: Order Comment: Name Collection Type:: Clean-Voided Midstream Performed By: #### A DDONUAPLUS, OBUDS #### [address] Urobilinogen,Urine Normal Normal Normal [facility] Comment on above: Order Comment: Name Collection Type:: Clean-Voided Midstream Performed By: #### A DDONUAPLUS, OBUDS #### [address] WBC LM.HPF (Urine sed) [#/Area] 0 /[HPF] Normal 0-4 [facility] Comment on above: Order Comment: Name Collection Type:: Clean-Voided Midstream Performed By: #### A DDONUAPLUS, OBUDS #### [address] OB Urine Drug Screen (NO THC )on 12-03-2020 Amphetamine Screen,Urine Negative Normal Negative [facility] Comment on above: Performed By: #### A DDONUAPLUS, OBUDS #### [address] Barbiturate Screen,Urine Negative Normal Negative [facility] Comment on above: Performed By: #### A DDONUAPLUS, OBUDS #### [address] Benzodiazepines Screen,Urine Negative Normal Negative [facility] Comment on above: Performed By: #### A DDONUAPLUS, OBUDS #### [facility] [address] [place] [address] [place] Cocaine Screen,Urine Negative Normal Negative [facility] Comment on above: Performed By: #### A DDONUAISHA OBUDS #### [facility] [address] Opiate Screen,Urine Negative Normal Negative [facility] Comment on above: Performed By: #### A DDONUAPLUS OBUDS #### [facility] [address] Phencyclidine Screen, Urine Negative Normal Negative [facility] Comment on above: Result Comment: Thes e are unconfirmed results and should not be used for legal purposes. Drug Cut-Off Concentration: AMPH 1000 ng/mL SHELLY 200 ng/mL SHARMIN 200 ng/mL COCM 300 ng/mL OP 300 ng/mL PCP 25 ng/mL PERFORMED BY: [place] [address] PATHOLOGIST EARRING MAKER FIDENCIO LOW M.D. Performed By: #### A EAN OBUDS #### [address] Strep B Cultureon 11-24-2020 Strep B Culture No Group B Beta Streptococcus Isolated 3 Days PERFORMED BY: [place] [address] PATHOLOGIST EARRING MAKER FIDENCIO LOW M.D. [facility] Comment on above: Performed By: #### C USTB #### [address] Vital Signs Date Time Vital Sign Value Performing Clinician Tiffany monte 08-12-2024 10:10-040 Body mass index (BMI) [Ratio] 20.82 kg/m2 Maude Jeremy handsomexcutive Work Phone: [facility] 08-12-2024 10:10-040 Body weight 58.51 kg [facility] handsomexcutive Work Phone: [facility] 08-12-2024 10:10-040 Diastolic blood pressure 68 mm[Hg] Maude Jeremy DO Work Phone: [facility] 08-12-2024 10:10-0400 Systolic blood pressure 102 mm[Hg] Maude Jeremy DO Work Phone: [facility] 04-08-2024 14:57-0500 Body height 167.6 cm Sarita Appiah DO Work Phone: [facility] 04-08-2024 14:57-0500 Body mass index (BMI) [Ratio] 22.11 kg/m2 Sarita Appiah DO Work Phone: [facility] 04-08-2024 14:57-0500 Body weight 62.14 kg Sarita Appiah DO Work Phone: [facility] 04-08-2023 14:48-0500 Body height 167.6 cm Maude Jeremy DO Work Phone: [facility] 04-08-2023 14:48-0500 Body mass index (BMI) [Ratio] 21.27 kg/m2 Maude Jeremy DO Work Phone: [facility] 04-08-2023 14:48-0500 Body weight 59.78 kg Maude Jeremy DO Work Phone: [facility] 04-08-2023 14:48-0500 Diastolic blood pressure 60 mm[Hg] Maude Jeremy DO Work Phone: [facility] 04-08-2023 14:48-0500 Systolic blood pressure 100 mm[Hg] Maude Jeremy DO Work Phone: [facility] Encounters Encounter Date Encounter Type Care Provider Facility Start: 08-12-2024 End: 08-12-2024 Bamboo flowsheet Maude Jeremy DO Work Phone: [facility] Start: 08-12-2024 End: 08-12-2024 Bamboo flowsheet Maude Jeremy DO Work Phone: [facility] Start: 08-12-2024 End: 08-12-2024 Office outpatient visit 15 minutes Maude Jeremy DO Work Phone: [facility] Comment on above: Pain in both lower e xtremities; Pelvic pain in female Start: 08-12-2024 End: 08-12-2024 ambulatory MAUDE JEREMY Not Available Start: 04-08-2024 End: 04-08-2024 Patient encounter procedure Sarita Appiah DO Work Phone: [facility] Comment on above: Acute pain of right knee (Primary Dx) Start: 04-08-2024 End: 04-08-2024 ambulatory SARITA Felipa APPIAH Not Available Start: 04-08-2024 End: 04-08-2024 ambulatory SARITA APPIAH Not Available Start: 04-08-2023 End: 04-08-2023 Patient encounter procedure Maude Sinclairo DO Work Phone: [facility] Start: 04-08-2023 End: 04-08-2023 Periodic preventive med est patient 18-39 yrs Maude Sinclairo DO Work Phone: [facility] Comment on above: Well woman exam with routine gynecological exam Start: 04-08-2023 Clinisync Result Encounter Maude Sinclairo DO Work Phone: [facility] External Department Unsolicited Start: 04-08-2023 Clinisync Result Encounter Maude Sinclairo DO Work Phone: [facility] Unsolicited Start: 07-19-2022 End: 07-20-2022 Evaluation and management of inpatient DR MAUDE LUNA . Facility:[facility]1 Start: 06-06-2022 End: 06-07-2022 ambulatory WARD ARANDA Facility:[facility] Start: 05-28-2022 End: 05-29-2022 ambulatory WARD ARANDA Facility:[facility]1 Procedures Date Procedure Procedure Detail Performing Clinician Start: 04-08-2024 Radiologic examinati on knee 3 views Sarita Appiah DO Work Phone: Start: 04-08-2023 IGP,APTIMA HPV,AGE GDLN Maude Sinclairo DO Work Phone: Start: 04-08-2023 Microscopic observat ion [Identifier] in Cervix by Cyto stain Sarita Appiah DO Work Phone: Plan of Treatment Date Care Activity Detail Author Start: 04-08-2028 Screening for malign ant neoplasm of cervix [facility] Start: 11-08-2024 Influenza vaccination Influenz a Vaccine (Season Ended) [facility] Start: 10-25-2024 End: 10-25-2024 Patient encounter procedure 10/25/2024 3:50 PM EDT Office Visit [facility] [address] [id number] Maude Luna, DO [address] [place] [address] [facility] Start: 08-12-2024 End: 08-12-2025 DHEA DHEA Lab Routine Pain in both lower extremities Pelvic pain in female Expected: 08/12/2024 (Approximate), Expires: 08/12/2025 [facility] Comment on above: Expected: 08/12/2024 (Approximate), Expires: 08/12/2025 Start: 08-12-2024 End: 08-12-2025 US Pelvis US Pelvis w/ TV Imaging Routine Pain in both lower extremities Pelvic pain in female Expected: 08/12/2024, Expires: 08/12/2025 [facility] Comment on above: Expected: 08/12/2024 , Expires: 08/12/2025 Start: 08-12-2024 End: 08-12-2024 Patient encounter procedure 08/12/2024 9:30 AM EDT Office Visit [facility] OB [address] [place] [phone] Maued Luna, DO [address] [place] [address] Arrived [facility] Comment on above: Arrived Start: 04-13-2024 End: 04-13-2024 Patient encounter procedure 04/13/2024 2:00 PM EST Office Visit [facility] [address] [phone] Maude Luna, DO [address] [place] [address] [facility] OB Start: 2023 Influenza vaccination Influenza Vacc ine (#1) [facility] Start: 11-08-2022 Influenza vaccination Influenza Vacc ine (#1) [facility] CBC W Auto Different ial panel - Blood CBC and differential Lab Routine Pain in both lower extremities Pelvic pain in female Ordered: 08/12/2024 [facility] Comment on above: Ordered: 08/12/2024 DHEA-sulfate DHEA-sulfate Lab Routine Pain in both lower extremities Pelvic pain in female Ordered: 08/12/2024 [facility] Comment on above: Ordered: 08/12/2024 Estradiol Estradiol Lab Ro utine Pain in both lower extremities Pelvic pain in female Ordered: 08/12/2024 [facility] Comment on above: Ordered: 08/12/2024 Follicle stimulating hormone Follicle stimulating hormone Lab Routine Pain in both lower extremities Pelvic pain in female Ordered: 08/12/2024 [facility] Comment on above: Ordered: 08/12/2024 hCG, quantitative, hCG, quantitative, Lab Routine Pain in both lower extremities Pelvic pain in female Ordered: 08/12/2024 [facility] Work Phone: Comment on above: Ordered: 08/12/2024 Hemoglobin A1c/Hemoglobin.total in Blood Hemoglobin A1c Lab Routine Pain in both lower extremities Pelvic pain in female Ordered: 08/12/2024 [facility] Comment on above: Ordered: 08/12/2024 Luteinizing hormone Luteinizing hormone Lab Routine Pain in both lower extremities Pelvic pain in female Ordered: 08/12/2024 [facility] Comment on above: Ordered: 08/12/2024 Progesterone Progesterone Lab Routine Pain in both lower extremities Pelvic pain in female Ordered: 08/12/2024 [facility] Comment on above: Ordered: 08/12/2024 Thyrotropin [Units/volume] in Serum or Plasma TSH Lab Routine Pain in both lower extremities Pelvic pain in female Ordered: 08/12/2024 [facility] Comment on above: Ordered: 08/12/2024 Thyroxine (T4) free [Mass/volume] in Serum or Plasma T4, free Lab Routine Pain in both lower extremities Pelvic pain in female Ordered: 08/12/2024 [facility] Comment on above: Ordered: 08/12/2024 Immunizations Immunization Date Immunization Notes Care Provider Rosio madera 12-30-2020 influenza virus vacc ine, unspecified formulation Maude Luna DO Work Phone: [facility] Payers Date Payer Category Payer Private Health Insurance [id number] 2019 Private Health Insurance [id number] 1993 Unknown [id number] [id number] 1993 Unknown [id number] [id number] [id number] 1993 Unknown [id number] 2.16.84 [id number] 1993 Unknown [id number] 2.16.8 [id number] 1993 Unknown [id number] 2.16.84 [id number] 1993 Unknown [id number] [id number] [id number] 1959 Unknown [id number] Social History Date Type Detail Facility Start: 08-30-2022 End: 04-08-2024 Tobacco smoking status MEIS Never smoked tobacco [facility] Start: 04-08-2023 End: 08-12-2024 Alcohol intake Lifetime non-drinker (finding) [facility] [...] [facility] History of Present illness Narrative 08-12-2024 Petty Barba, HOT REPAIRMAN - 08/12/2024 9:30 AM EDT Note Date & Type Note Facility 08-12-2024 History of Presen t illness Narrative Reason for Appointment: Patient ID: Lottie Childress is a 28 y.o. female who presents for Leg Pain (Pt present today for pain in legs/feet after [...] nursing note reviewed. Exam conducted with a fine craft artist present. Vitals: Estimated body mass index is 20.82 kg/m as calculated from the following: Height [...] diagnostic lap to see if endometriosis is present. Discussed PT for pelvic dysfunction as well, since patient need to sit on donut after delivery due to tailbone pain. Patient voiced that right before cycle and ovulation she gets leg discomfort and bilateral feet throbbing. Patient voiced that due to alevism beliefs control will not be an option. Patient will be referred to PT for pelvic pain & LE pain and can discuss possible surgical management in the future as pain is impacting ADL's and quality of life. Documented by Petty Barba LPN on behalf of: Maude Luna DO documented in this encounter [facility] History [...] years while growing up. She works through [employer] in the [employer] side. She has two children, younger in [...] saved to the permanent record in the [place] office, AP, lateral and sunrise views. ASSESSMENT [...] History of Present illness Narrative 04-08-2023 Renee JohnnieDEANDRE hi - 04/08/2023 2:30 PM EST Note Date [...] nursing note reviewed. Exam conducted with a fine craft artist present. Vitals: Estimated body mass index is [...] Maude Luna DO documented in this encounter [facility] Evaluation note Note Date & Type Note Facility Evaluation note Diagnosis Well woman exam with routine gynecological exam Routine gynecological examination documented in this encounter [facility] Evaluation note Note Date & Type Note Facility Evaluation note Diagnosis Acute pain of right knee- Primary documented in this encounter [facility] Evaluation note Note Date & Type Note Facility Evaluation note Diagnosis Pain in both lower extremities Pelvic pain in female Unspecified symptom associated with female genital organs documented in this encounter [facility] Summary Purpose Family History No Family History Records FoundNo Family History Records FoundNo Family History Records Found Advance Directives No Advanced Directives Records FoundNo Advanced Directives Records FoundNo Advanced Directives Records Found Additional Source Comments INFORMATION SOURCE (unrecogn ized section and content) DATE CREATED AUTHOR 01/11/2021 [facility] DATE CREATED AUTHOR AUTHOR'S ORGANIZ ATION 07/20/2022 [facility] DATE CREATED AUTHOR AUTHOR'S ORGANIZ ATION 08/13/2024 [facility] Specialists EPIC Reason for Visit (unrecogniz ed section and content) Reason Comments Gynecologic Exam Reason Comments Pain Reason Comments Leg Pain Pt present today for pain in legs/feet after delivering in 2022. Pt wants to check for potential ovarian cyst. Care Teams (unrecognized sec tion and content) Home Sales Consultant Relationship Specialty Start Date End Date Chino Bangura MD [address] [place] [address] PCP - General Family Medicine 08/27/22 Home Sales Consultant Relationship Specialty Start Date End Date Chino Bangura MD [address] [place] [address] PCP - General Family Medicine 08/27/22 Home Sales Consultant Relationship Specialty Start Date End Date Chino Bangura MD [address] [place] [address] PCP - General Family Medicine 08/27/22 Home Sales Consultant Relationship Specialty Start Date End Date Chino Bangura MD [address] [place] [address] PCP - General Family Medicine 08/27/22 FOR [...] BE BASED ON THE PRIMARY CLINICAL RECORDS. [facility] [employer] [facility]. provides no warranty or guarantee of the accuracy or completeness of information in this document.
== END 2024-08-25 18:40 | disposition home or self-care (01) ==
PROVIDERS: PCP Family Medicine; Visit Provider Obstetrics & Gynecology
DX: M79.604 Pain in right leg (principal); M79.605 Pain in left leg; R10.2 Pelvic and perineal pain
CPT/HCPCS: 76830; 76856

== ENCOUNTER 2024-08-31 16:27 | Outpatient (RCR) | payer OTHER, SELFPAY | END 2024-09-01 14:11 | disposition home or self-care (01) | LOC: PT 16:27 | PROVIDERS: Visit Provider Obstetrics & Gynecology | DX: M79.604 Pain in right leg (principal); M54.50 Low back pain, unspecified | CPT/HCPCS: 97161 ==

== ENCOUNTER 2024-09-20 08:06 | Outpatient (OUT) | payer OTHER, SELFPAY ==
--- OUTSIDE RECORDS SUMMARY | 2024-08-24 08:13 | XMS_ITS ---
Author Organization The [facility] in [place] Address [address] [place] [address] Care Team Providers Care Child Abuse Worker Name Role Phone CAREY RODRIGUEZ MD Primary Care Provider Carey Rodriguez Unavailable [phone] Reason For Referral Diagnosis 1 Mouth abscess (K12.2 ) Referral Organization [facility] Referring Provider First Name Carey Referring Provider Last Name Willem Referring Provider Speciality Family Med anson Referred Provider Yanelis Patten Referred Provider Specialty Otolaryngolo gy Referral Priority Routine REASON FOR VISIT referral Medications Medication SIG (Take, Route, Fr equency, Duration) Notes Start Date End Date Status Qelbree 100 MG 1 capsule Orally Onc e a day for 30 days 08/24/2024 Active Encounters Encounter Location Date Provider Diagnosis [facility] [address] [facility] [place] [address] 08/24/2024 Carey Rodriguez Mouth abscess K12.2 Assessments Encounter Date Diagnosis (ICD Code) Assessment Notes Treatment Notes Treatment Clinical Notes Section Notes 08/24/2024 Mouth abscess (ICD-10 - K12.2) Plan Of Treatment Medication Medication Name Sig Start Date Stop Date Notes Qelbree 100 MG 1 capsule Orally Once a day for 30 days Referrals Referral Date Details 08/24/2024 08/24/2024Yanelis Progress Notes * Lottie CHILDRESS RDOB: 4 (28 yo F)Acc No.[id number]:08/24/2024 Patient: Lottie GUZMAN :1995 A ge:28 Y S ex:Female Address:[facility] [address] [place], [address] * Refills Start Qelbree Capsule Extended Release 24 Hour, 100 MG, Orally, 30 Capsule, 1 capsule, Once a day, 30 days, Refills=11 Subjective: * Chief Complaints: * R eferral * Medical History: * Surgical History: * Hospitalization/Major Diagno stic Procedure: * Medications: Objective: * Vitals: * Physical Examination: Assessment: * Assessment: 1. M outh abscess - K12.2 (Primary) Plan: * Treatment: 2. O thers Start Qelbree Capsule Extended Release 24 Hour, 100 MG, 1 capsule, Orally, Once a day, 30 days, 30 Capsule, Refills 11. * Procedure Codes: * true * Date: Generated for Laly pacheco/Brandi/eTransmitting on: 0 09/20/2024 08:08 AM EDT Consultation Request Notes Referral Date Referring Provider Referred Provider Not es 08/24/2024 Carey Rodriguez Hilary
--- OUTSIDE RECORDS SUMMARY | 2024-08-26 07:06 | XMS_ITS ---
Author Organization The [facility] in [place] Address [address] [place] [address] Care Team Providers Care Group Manager Name Role Phone CAREY RODRIGUEZ MD Primary Care Provider [phone] Carey Rodriguez Unavailable [phone] REASON FOR VISIT Refill Medications Medication SIG (Take, Route, Fr equency, Duration) Notes Start Date End Date Status Atomoxetine HCl 40 MG 1 capsule in the m orning Orally Once a day for 90 days 08/04/2024 Ac tive Encounters Encounter Location Date Provider Diagnosis [address] [address] 08/26/2024 Carey Rodriguez ADHD F90.9 Assessments Encounter Date Diagnosis (ICD Code) Assessment Notes Treatment Notes Treatment Clinical Notes Section Notes 08/26/2024 ADHD (ICD-10 - F90.9) Plan Of Treatment Medication Medication Name Sig Start Date Stop Date Notes Atomoxetine HCl 40 MG 1 capsule in the m orning Orally Once a day for 90 days 08/04/2024 Progress Notes * Lottie CHILDRESS RDOB: 4 (28 yo F)Acc No.[id number]:08/26/2024 Patient: Corine Lottie DOMINGO :1995 A ge:28 Y S ex:Female Address:[facility] [place], [address] * Refills Refill Atomoxetine HCl Capsule, 40 MG, Orally, 90 Capsule, 1 capsule in the morning, Once a day, 90 days, Refills=3 * true * Date: Generated for Laly pacheco/Brandi/Roverto on: 0 09/20/2024 08:08 AM EDT
--- OUTSIDE RECORDS SUMMARY | 2024-09-01 18:11 | XMS_ITS ---
Author Organization The [facility] in [place] Address [address] [place] [address] Care Team Providers Care Allergist/Md Name Role Phone CAREY BANGURA MD Primary Care Provider Carey Banugra Unavailable [phone] Medications Medication SIG (Take, Route, Frequency, Duration) Notes Start Date End Date Status Methylphenidate HCl 10 MG 1 tablet on empty stomach Orally Q am for 7 days F90.9 09/02/2024 Active Encounters Encounter Location Date Provider Diagnosis [facility] [address] [place] [address] 09/01/2024 Carey Bangura Plan Of Treatment Medication Medication Name Sig Start Date Stop Date Notes Methylphenidate HCl 10 MG 1 tablet on em pty stomach Orally Q am for 7 days 09/02/2024 Progress Notes * Lottie CHILDRESS RDOB: 4 (28 yo F)Acc No.[id number]:09/01/2024 Patient: Corine Lottie DOMINGO :1995 A ge:28 Y S ex:Female Address:[facility] [place], [address] * Refills Start Methylphenidate HCl Tablet, 10 MG, Orally, 7, 1 tablet on empty stomach, Q am, 7 days, Refills=0 * true * Date: Generated for Printi ng/Faxing/eTransmitting on: 0 09/20/2024 08:08 AM EDT
--- OUTSIDE RECORDS SUMMARY | 2024-09-20 08:08 | XMS_ITS | Encounter Summary ---
Author Organization [facility] Address [address] [place] [address] Care Team Providers Care Journal Clerk Name Role Phone Chino Bangura MD Primary Care Provider [phone] Encounter Details Date Type Department Care Team (Late Contact Info) Description 08/19/2024 Abstract [facility] [address] [place] [address] Lisa Ibarra [place] Social History Tobacco Use Types Packs/Day Years [...] Department Care Team (Late Contact Info) Description 10/01/2024 1:30 PM EDT Office Visit [facility] [place] [address] [place] [phone] Yanelis Patten MD [address] [facility] [address] [place] [address] 10/25/2024 3:50 PM EDT Office Visit [facility] [address] [place] [address] Sixto Luna DO [address] [place] [address] documented as of this encounter Visit Diagnoses Not on filedocumented in this encounter Care Teams Journal Clerk Relationship Specialty Start Date End Date Chino Bangura MD [address] [facility] [place] [address] PCP - General Family Medicine 08/27/22 documented as of this encounter
--- OUTSIDE RECORDS SUMMARY | 2024-09-20 08:08 | XMS_ITS | Clinical Summary ---
Author Organization [facility] Address [address] [place] [address] Phone Care Team Providers Care Slitter And Cutter Operator Name Role Phone Chino Bangura MD Primary Care Provider [phone] Social History Tobacco Use Types Packs/Day Years Used Date Smoking Tobacco: Never Assessed Comments Unknown Sex and Gender Information Value Date Recorded Sex Assigned at Not on file Legal Sex Female 12:24 PM EST Gender Identity Not on file Sexual Orientation Not on file Plan of Treatment Not on file Care Teams Slitter And Cutter Operator Relationship Specialty Start Date End Date Chino Bangura MD [address] [facility] [place] [address] PCP - General 06/13/11
--- OUTSIDE RECORDS SUMMARY | 2024-09-20 08:08 | XMS_ITS | Encounter Summary ---
Author Organization [facility] Address [address] [place] [address] Care Team Providers Care Testing Machine Operator Name Role Phone Chino Bangura MD Primary Care Provider [phone] Encounter Details Date Type Department Care Team (Late Contact Info) Description 08/30/2022 Abstract [facility] [address] [facility] [address] [place] [address] Zofia Oconnor PA [address] [facility] [address] [place], [place] [id number] Social History Tobacco Use Types Packs/Day Years [...] 1:30 PM EDT Office Visit [facility] [place] [address] [facility] [address] [place] [address] Yanelis Patten MD [address] [facility] [address] [place] [address] 10/25/2024 3:50 PM EDT Office Visit [facility] [address] [place] [address] Sixto Luna DO [address] [facility] [place] [address] documented as of this encounter Visit Diagnoses Not on filedocumented in this encounter Care Teams Testing Machine Operator Relationship Specialty Start Date End Date Chino Bangura MD [address] [facility] [place] [address] PCP - General Family Medicine 08/27/22 documented as of this encounter
--- OUTSIDE RECORDS SUMMARY | 2024-09-20 08:08 | XMS_ITS | Clinical Summary ---
Author Organization [facility] Address [address] [place] [address] Care Team Providers Care Facilities Maintenance Engineer Name Role Phone Chino Bangura MD Primary Care Provider [phone] Allergies No known active allergies Medications pantoprazole (ProtoNix) 40 MG EC tablet Take 40 mg by mouth Daily 5 09/01/19 Discontinu ed(Therapy completed) atomoxetine (Strattera) 40 MG capsule 1 (one) time each day at the same time 5 09/02/19 Discontinu ed(Therapy completed) Carafate 1 g tablet Take 1 tablet 4 times a day by oral route. 5 09/01/19 Discontinu ed(Therapy completed) triamcinolone (Kenalog) 0.1 % oral paste every 12 (twelve) hours 5 09/02/19 Discontinu ed(Therapy completed) Active Problems Problem Noted Date Diagnosed Date Attention-deficit hyperactivity disorder, unspec ified type 09/01/2024 ADHD 08/31/2024 Decreased hearing of both ears 08/31/2024 Irregular periods 08/31/2024 Mucocele of mouth 08/31/2024 Tonsil stone 08/31/2024 Encounters Date Type Department Care Team Description 09/01/2024 8:10 AM EDT Office Visit [facility] [address] [place] [address] Yanelis Patten MD Mucocele of lower lip (Primary Dx) 09/01/2024 Bamboo flowsheet [facility] [address] [place] [address] Yanelis Patten MD 09/01/2024 Travel 08/26/20[address] [facility] [address] [place] [address] Patricia GoelDEANDRE 08/26/2024 Clinisync Result Encounter [facility] External Department Unsolicited Maude Luna DO 08/19/2024 Abstract [facility] [address] [place] [address] Lisa Ibarra MA 08/12/2024 9:30 AM EDT Office Visit [facility] [address] [place] [address] Maude Luna DO Pain in both lower extremities; Pelvic pain in female 08/12/2024 Bamboo flowsheet [facility] [address] [place] [address] Maude Luna DO from Last 3 Months Family [...] Sign Reading Time Taken Comments Blood Pressure 113/77 09/01/2024 8:11 AM EDT Pulse 88 09/01/2024 8:11 AM EDT Temperature - - Respiratory Rate - - Oxygen Saturation - - Inhaled Oxygen Concentration - - Weight 59.4 kg (131 lb) 09/01/2024 8:11 AM EDT Height 165 cm (5' 4.96 ) 09/01/2024 8:11 AM EDT Body Mass Index 21.83 09/01/2024 8:11 AM EDT Plan of Treatment Upcoming Encounters Date Type Department Care Team (Late st Contact Info) Description 10/01/2024 1:30 PM EDT Office Visit [facility] [place] [address] [facility] [address] [place] [address] Yanelis Patten MD 112 [facility] [address] [place] [address] 10/25/2024 3:50 PM EDT Office Visit [facility] [address] [place] [address] Maude Luna, DO [address] [address] Health Maintenance Due Date Last Done Comments Influenza Vaccine (#1) 2024 12/30/2020, 2017 Cervical Cancer Screening 04/08/2028 HPV/Cotest 04/08/2028 02/12/2022, 02/09/2019 Pap Smear 04/08/2028 04/08/2023, 02/12/2022, 02/08 Procedures Procedure Name Priority Date/Time Associated Diagnosis Comments US PELVIS W/ TRANSVAGINAL 08/26/2024 12:29 AM EDT PAP SMEAR Routine 04/08/2023 12:00 AM EST THINPREP TIS PAP REFLEX HPV MRNA E6/E7 (09583) Routine 02/12/2022 from Last 3 Months or Most Recently Relevant to Health Maintenance Results * US PELVIS W/ TRANSVAGINAL (08/26/2024 12:29 AM EDT) Anatomical Region Laterality Modality Other 08/26/2024 12:2 9 AM EDT Narrative 08/26/2024 12:32 AM EDT [address] [address] Ultrasound Report Signed Patient: LOTTIE CHILDRESS MR#: [id number] : 1995 Acct:[id number] Age/Sex: 28 / F ADM Date: 08/25/24 Loc: US Attending Dr: Maude Luna D.O. Ordering Physician: Maude Luna D.O. Date of Service: 08/25/24 Procedure(s): US pelvis w/ transvaginal Accession Number(s): [id number] cc: Maude Luna D.O.; Chino Bangura M.D. [address] [address] Patient Name: LOTTIE CHILDRESS MRN: [id number] date: 1995 Sex: F Assigned Patient Location: Current Patient Location: Accession/Order Number: [id number] Exam Date: 08/26/2024 00:28 Report Date: 08/26/2024 00:29 At the request of: MAUDE LUNA DO Procedure: US pelvis w/ transvaginal EXAMINATION TYPE: US pelvis w/ transvaginal Grayscale, color scale Doppler, vascular duplex analysis of the bilateral ovaries DATE OF EXAM ORDERED: 08/25/2024 8:12 PM HISTORY: pelvic pain R10.2, lower extremity pain M79.604 M79.605, COMPARISON: NONE TECHNIQUE: Realtime Transvaginal and Transabdominal imaging was performed. Transvaginal imaging was utilized to better evaluate the ovaries and the endometrial stripe. Grayscale, color scale Doppler, vascular duplex analysis of the bilateral ovaries was performed to assess blood flow. FINDINGS: The uterus measures 8.3 x 4.2 x 5.0 cm. The uterus is normal in echogenicity. Endometrium: Normal thickness and appearance. The endometrium measures 6 mm in thickness. Ovaries: The visualized ovaries are within normal limits for songraphic evaluation. Right Ovary measurements: 5.0 x 2.0 x 3.5 cm Left Ovary measurements: 3.7 x 1.7 x 2.8 cm No abnormal adnexal mass is seen. No free fluid in the pelvic cul-de-sac. Vascular duplex analysis of the bilateral ovaries demonstrates normal blood flow without evidence of ovarian ischemia. US/US pelvis w/ transvaginal IMPRESSION: Normal pelvic ultrasound. No evidence of ovarian ischemia. Impression dictated by: Terrance Moreno M.D. 08/26/2024 12:29 AM Dictation Location: [place] [address] Electronically authenticated by: [id number] Y Date: 08/26/2024 00:29 Dictated By: Terrance Moreno M.D. Signed By: 08/26/24 0032 DD/ 0029 TD/TT: Chemical Checker: Procedure Note Radiology, Radiologist, MD - 08/26/2024 [place] [address] Ultrasound Report Signed Patient: LOTTIE CHILDRESS RMR#: [id number] : 1995Acct:[id number] Age/Sex: 28 / FADM Date: 08/25/24 Loc: US Attending Dr: Maude Luna D.O. Ordering Physician: Maude Luna D.O. Date of Service: 08/25/24 Procedure(s): US pelvis w/ transvaginal Accession Number(s): [id number] cc: Maude Luna D.O.; Chino Bangura M.D. The [address] [address] Patient Name: LOTTIE CHILDRESS MRN: [id number] date: 1995 Sex: F Assigned Patient Location: US Current Patient Location: Accession/Order Number: [id number] Exam Date: 08/26/2024 00:28 Report Date: 08/26/2024 00:29 At the request of: MAUDE LUNA DO Procedure: US pelvis w/ transvaginal EXAMINATION TYPE: US pelvis w/ transvaginal Grayscale, color scaleDoppler, vascular duplex analysis of the bilateral ovaries DATE OF EXAM ORDERED: 08/25/2024 8:12 PM HISTORY: pelvic pain R10.2, lower extremity pain M79.604 M79.605, COMPARISON: NONE TECHNIQUE: Realtime Transvaginal and Transabdominal imaging was performed. Transvaginal imaging was utilized to better evaluate the ovaries and the endometrial stripe. Grayscale, color scale Doppler, vascular duplexanalysis of the bilateral ovaries was performed to assess blood flow. FINDINGS: The uterus measures 8.3 x 4.2 x 5.0 cm. The uterus is normal inechogenicity. Endometrium: Normal thickness and appearance. The endometrium measures 6mm in thickness. Ovaries: The visualized ovaries are within normal limits for songraphic evaluation. Right Ovary measurements: 5.0 x 2.0 x 3.5 cm Left Ovary measurements: 3.7 x 1.7 x 2.8 cm No abnormal adnexal mass is seen. No free fluid in the pelvic cul-de-sac. Vascular duplex analysis of the bilateral ovaries demonstrates normalblood flow without evidence of ovarian ischemia. US/US pelvis w/ transvaginal IMPRESSION: Normal pelvic ultrasound. No evidence of ovarian ischemia. Impression dictated by: Terrance Moreno M.D. 08/26/2024 12:29 AM Dictation Location: [place] [address] Electronically authenticated by: [id number] Y Date: 500:29 Dictated By: Terrance Moreno M.D. Signed By:08/26/24 0032 DD/ 0029 TD/TT: Chemical Checker: us Maude Jeremy DO [facility] Final Result * Pap Smear (04/08/2023 12:00 AM EST) Swab Cervical swab / Unknown us Maude Jeremy DO LAB CYTOLOGY ORDERABLES Final Re sult EXTERNAL LAB * THINPREP TIS PAP REFLEX HPV MRNA E6/E7 (83983) (02/12/2022) CLINICAL INFORMATION: None given [facility] [...] LAB Comment: NNO, CT(ASCP) CT screening location: [employer] [facility], [address] [place] [address], [place] [address]. COMMENT SEE COMMENT [facility] EXTERNAL [...] with historic and current clinical information. 02/12/2022 Kya Carty DO [facility] Final Resu lt [facility] EX[facility]NAL LAB from Last 3 Months or Most Recently Relevant to Health Maintenance Insurance [facility] Care Teams Facilities Maintenance Engineer Relationship Specialty Start Date End Date Chino Bangura MD [address] [place] [address] PCP - General Family Medicine 08/27/22
--- OUTSIDE RECORDS SUMMARY | 2024-09-20 08:09 | XMS_ITS | Data Portability ---
Author Organization [place] - [facility] [facility] Address [address] [place] [address] Assessment Encounter Date Assessment Date Assessment LastModified [...] Orders Carafate 1 gram tablet 2024 025 [id number], [address] [place], [address], 09:12:22 Patient TargetsNo targets recorded. Patient InstructionsNo [...] SNOMED-CT Code Diagnosis ICD10 Code Diagnosis Note [id number] CESARIO Becker [facility] [address] [facility] [address] [place] [address] 04/27/2024 09:08:35 04/27/2024 15:12:25 Gastroesophageal reflux disease without esophagitis 606677599 K21.9 Health Concerns Section Related Observation LastModified by Organization Detai ls LastModified Time None Recorded Concern Status LastModified by Organization Details LastModified Time None Recorded Advance Directives Directive None Recorded Payers Insurance Date Sequence Insurance Name Policy Number Policy Davis Covered Member ID Davis Member ID Guarantor Name 04/27/2024 2 *SELF PAY* [id number] Lottie Mapus [id number] Lottie Mapus 04/27/2024 [facility] [id number] Lottie Mapus [id number] Lottie Mapus 05/06/2024 1 [facility] [id number] Lottie Mapus [id number] Lottie Mapus 04/27/2024 1 *SELF PAY* Ke [...] The patient consents to the use of [employer] scribe technology. Reviewed chart including chief complaint, [...] on management and appropriate treatment. Arianne Quezada, FIRST CALENDER WORKER 1 [facility] [address], [address], [facility] 04/27/2024 09:14:11 OBGyn Episode No OBEpisode recorded.
--- OUTSIDE RECORDS SUMMARY | 2024-09-20 08:09 | XMS_ITS | Patient Health Record ---
Author Organization [facility] [place] Address [address] [place] [address] Care Team Providers Care Automotive Painter Name Role Phone CAREY BANGURA MD Primary Care Provider [phone] Carey Bangura Unavailable [phone] Allergies No Known Allergies Results Component Value Reference Range Notes US pelvis w/ transvaginal Reviewed date:08/26/2024 06:58:30 PM Interpretation: Performing Lab: Notes/Report: Source Facility: [place] [address] Ultrasound Report Signed Patient: LOTTIE CHILDRESS MR#: [id number] : 1995 Acct:[id number] Age/Sex: 28 / F ADM Date: 08/25/24 Loc: US Attending Dr: Maude Luna D.O. Ordering Physician: Maude Luna D.O. Date of Service: 08/25/24 Procedure(s): US pelvis w/ transvaginal Accession Number(s): [id number] cc: Maude Luna D.O.; Diego Bangura M.D. [place] [id number] Patient Name: LOTTIE CHILDRESS MRN: [id number] date: 1995 Sex: F Assigned Patient Location: US Current Patient Location: Accession/Order Number: [id number] Exam Date: 08/26/2024 00:28 Report Date: 08/26/2024 [...] Moreno M.D. 08/26/2024 12:29 AM Dictation Location: [place] [address] Electronically authenticated by: [id number] Y Date: 08/26/2024 00:29 Dictated By: Terrance Moreno M.D. Signed By: 08/26/24 0032 DD/ 0029 TD/TT: Statistics Manager: [place] [address] Ultrasound Report Signed Patient: JONI CHILDRESS MR#: [id number] : 1995 Acct:[id number] Age/Sex: 28 / F ADM Date: 08/25/24 Loc: US Attending Dr: Maude Luna D.O. Ordering Physician: Maude Luna D.O. Date of Service: 08/25/24 Procedure(s): US pel vis w/ transvaginal Accession Number(s): [id number] cc: Maude Luna D.O. ; Diego Bangura M.D. [place] [id number] Patient Name: LOTTIE CHILDRESS MRN: [id number] date: 1995 Sex: F Assigned Patient Location: Current Patient Location: Accession/Order Numb er: [id number] Exam Date: 08/26/2024 00:28 Report Date: 08/26/2024 00:29 At the request of: MAUDE LUNA DO Procedure: US pelvis w/ transvaginal EXAMINATION TYPE: US pelvis w/ transvaginal Grayscale, color scale Doppler, vascular duplex anal ysis of the bilateral ovaries DATE OF EXAM ORDERED : 08/25/2024 8:12 PM HISTORY: pelvic pain R10.2, lower extremity pain M79.604 M79.605, COMPARISON: NONE TECHNIQUE: Realtime Transvaginal and Transabdominal imaging was performed. Transvaginal imaging was utilized to better evaluate the ovaries and the endometrial stripe. Grayscale, color scale Doppler, vascular duplex analysis of the bilateral ova dez was performed to assess blood flow. FINDINGS: The uterus measures 8.3 x 4.2 x 5.0 cm. The uterus is normal in echogenicity. Endometrium: Normal thickness and appearance. The endometrium measures 6 mm in thickness. Ovaries: The visuali zed ovaries are within normal limits for songraphic evaluation. Right Ovary measurem ents: 5.0 x 2.0 x 3.5 cm Left Ovary measureme nts: 3.7 x 1.7 x 2.8 cm No abnormal adnexal mass is seen. No free fluid in the pelvic cul-de-sac. Vascular duplex anal ysis of the bilateral ovaries demonstrates normal blood flow without evidenc e of ovarian ischemia. U S/US pelvis w/ transvaginal IMPRESSION: Normal pelvic ultras ound. No evidence of ovarian ischemia. Impression dictated by: Terrance Moreno M.D. 08/26/2024 12:29 AM Dictation Location: [place] [address] Electronically authe nticated by: [id number] Y Date: 08/26/2024 00:29 Dictated By: Terrance Moreno M.D. Signed By: 08/26/24 0032 DD/ 0029 TD/TT: Statistics Manager: US right upper quadrant Reviewed date:05/07/2024 12:55:51 PM Interpretation: Performing Lab: Notes/Report: Source Facility: [place] [address] Ultrasound Report Signed Patient: LOTTIE CHILDRESS MR#: [id number] : 1995 Acct:[id number] Age/Sex: 28 / F ADM Date: 05/07/24 Loc: US Attending Dr: Diego Bangura M.D. Ordering Physician: Diego Bangura M.D. Date of Service: 05/07/24 Procedure(s): US right upper quadrant Accession Number(s): [id number] cc: Diego Bangura M.D.; Physician,Non-Staff Joana The [place] [address] Patient Name: LOTTIE CHILDRESS MRN: [id number] date: 1995 Sex: F Assigned Patient Location: Current Patient Location: US Accession/Order Number: [id number] Exam Date: 05/07/2024 10:28 Report Date: 05/07/2024 [...] Renee Ramos M.D.05/07/2024 10:29 AM Dictation Location: [place] [address] Electronically authenticated by: [id number] Y Date: 05/07/2024 10:29 Dictated By: Renee Ramos M.D. Signed By: 05/07/24 1032 DD/ 1029 TD/TT: Statistics Manager: [place] [address] Ultrasound Report Signed Patient: JONI CHILDRESS MR#: [id number] : 1995 Acct:[id number] Age/Sex: 28 / F ADM Date: 05/07/24 Loc: US Attending Dr: Diego Bangura M.D. Ordering Physician: Diego Bangura M.D. Date of Service: 05/07/24 Procedure(s): US rig ht upper quadrant Accession Number(s): [id number] cc: Diego Bangura M.D. ; Physician,Non-Staff Joana The [place] [id number] Patient Name: LOTTIE CHILDRESS MRN: [id number] date: 1995 Sex: F Assigned Patient Location: Current Patient Location: US Accession/Order Numb er: [id number] Exam Date: 05/07/2024 10:28 Report Date: 05/07/2024 [...] Renee Ramos M.D.05/07/2024 10:29 AM Dictation Location: [place] [address] Electronically authe nticated by: [id number] Y Date: 05/07/2024 10:29 Dictated By: Renee Ramos M.D. Signed By: 05/07/24 1032 DD/ 1029 TD/TT: Statistics Manager: Reason For Referral Diagnosis 1 Mouth abscess (K12.2 ) Referral Organization [facility] Referring Provider First Name Carey Referring Provider Last Name Willem Referring Provider [facility] Referred Provider Yanelis Patten Referred Provider Specialty Otolaryngolo gy Referral Priority Routine Medications Medication SIG (Take, Route, Frequency, Duration) Notes Start Date End Date Status Qelbree 100 MG 1 capsule Orally Onc e a day for 30 days 08/24/2024 Active Methylphenidate HCl 10 MG 1 tablet on empty stomach Orally Q am for 7 days F90.9 09/02/2024 Active Atomoxetine HCl 40 MG 1 capsule in the m orning Orally Once a day for 90 days 08/04/2024 Active Triamcinolone Acetonide 0.1 % 1 [...] Problem Status W/U Status Risk Notes Problem 80687697287801348 Plantar wart (B07.0) Active confirmed Problem 122704837382527 Lesion of planta r nerve, 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 Problem 508212756 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) Active confirmed Problem 422141442783379 Metatarsalgia, left foot (M77.42) Active confirmed Problem 319121191 Stress fracture, right foot, subsequent encounter for fracture with routine healing (M84.374D) Active confirmed Problem Pain in right foot (203449448843723) Right foot pain (M79.671) Active confirmed Problem Right upper quadrant pain (640995777) Right upper quadrant abdominal pain (R10.11) Active confirmed Problem Chondromalacia (32818633) Chondromalacia of knee, 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) Active confirmed Problem Mucocele of mouth (disorder) (799514482) 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 Problem Attention deficit hyperactivity disorder (575417860) ADHD (F90.9) Active confirmed Vital Signs Blood pressure diastolic 62 mm Hg 08/04/2024 Height 65 in 08/04/2024 Blood pressure systolic 102 mm Hg 08/04/2024 Weight 131 lbs 08/04/2024 BMI 21.8 kg/m2 08/04/2024 Encounters Encounter Location Date Provider Diagnosis [facility] [address] [place] [address] 05/07/2024 Carey Hoy Right upper quadrant abdominal pain R10.11 [facility] [address] [place] [address] 08/24/2024 Carey Hoy Mouth abscess K12.2 [facility] [address] [place] [address] 08/26/2024 Carey Hoy ADHD F90.9 [facility] [address] [place] [address] 09/01/2024 Carey Hoy [facility] [address] [place] [address] 04/28/2024 Carey Hoy Right upper quadrant abdominal pain R10.11 [facility] [address] [place] [address] 08/04/2024 Carey Hoy ADHD F90.9 and Mucocele of buccal mucosa K13.79 Assessments Encounter Date Diagnosis (ICD Code) Assessment Notes Treatment Notes Treatment Clinical Notes Section Notes 04/28/2024 Right upper quadrant abdominal pain (ICD-10 - R10.11) 08/04/2024 ADHD (ICD-10 - F90.9) 08/04/2024 Mucocele of buccal mucosa (ICD-10 - K13.79) 05/07/2024 Right upper quadrant abdominal pain (ICD-10 - R10.11) 08/24/2024 Mouth abscess (ICD-10 - K12.2) 08/26/2024 ADHD (ICD-10 - F90.9) Plan Of Treatment Pending Test Test Name Order Date C DIFF TOX PCR STOOL 05/07/2024 CMP - Comprehensive Metabolic Panel 04/11 AMYLASE 05/07/2024 CBC AUTO DIFF 05/07/2024 GLYCOHEMOGLOBIN A1C 05/07/2024 LIPASE 05/07/2024 SED RATE WESTERGREN 05/07/2024 US ABD 04/28/2024 Insurance Providers Payer Name Payer Address Payer Phone Subscriber Number Group Number Insured Name Patient Relationship to Insured Coverage Start Date Coverage End Date [employer] [address] [address] [place] [address] [id number] Lottie Childress Self - patient is the insured Medications Administered Medication Instructions Date of Administration Dosage Notes Celestone 6mg/mL 11/05/2022 0.5 mL Lidocaine HCl 11/05/2022 0.5 mL Medical (General) History Medical History History ICD Code right foot pain left foot pain Surgical History Surgery Date(Month/Year) No surgical / procedural history No thyroid disease Hospitalization History Reason Date(Month/Year) child 2022 see above
== END 2024-09-20 08:07 | disposition home or self-care (01) ==
LOC: PST 08:06
PROVIDERS: Visit Provider Otolaryngology
DX: Z01.818 Encounter for other preprocedural examination (principal); K13.0 Diseases of lips

== ENCOUNTER 2024-10-07 09:28 | Day surgery (SDC) | payer OTHER, SELFPAY ==
--- OUTSIDE RECORDS SUMMARY | 2024-08-24 08:13 | XMS_ITS ---
Author Organization The [facility] in [place] Address [address] [place] [address] Care Team Providers Care Tester Printed Circuit Boards Name Role Phone CAREY RODRIGUEZ MD Primary Care Provider Carey Rodriguez Unavailable [phone] Reason For Referral Diagnosis 1 Mouth abscess (K12.2 ) Referral Organization [facility] Referring Provider First Name Carey Referring [...] Active Encounters Encounter Location Date Provider Diagnosis [facility] [address] [facility] [place] [address] 08/24/2024 Carey Rodriguez Mouth abscess K12.2 Assessments [...] Lottie CHILDRESS RDOB: 4 (28 yo F)Acc No.[id number]:08/24/2024 Patient: Lottie GUZMAN :1995 A ge:28 Y S ex:Female Address:[facility] [address] [place], [address] * Refills Start Qelbree Capsule Extended Release [...] Date: Generated for Laly pacheco/Brandi/eTransmitting on: 0 10/07/2024 09:34 AM EDT Consultation Request Notes Referral Date Referring Provider Referred Provider Not es 08/24/2024 Carey Rodriguez Hilary
--- OUTSIDE RECORDS SUMMARY | 2024-08-26 07:06 | XMS_ITS ---
Author Organization The [facility] in [place] Address [address] [place] [address] Care Team Providers Care Direct Marketing Manager Name Role Phone CAREY RODRIGUEZ MD Primary Care Provider [phone] Carey Rodriguez Unavailable [phone] REASON FOR VISIT Refill Medications Medication SIG (Take, Route, Fr equency, Duration) Notes Start Date End Date Status Atomoxetine HCl 40 MG 1 capsule in the m orning Orally Once a day for 90 days 08/04/2024 Ac tive Encounters Encounter Location Date Provider Diagnosis [address] [address] 08/26/2024 Carey Rodriguez ADHD F90.9 Assessments Encounter [...] Lottie CHILDRESS RDOB: 4 (28 yo F)Acc No.[id number]:08/26/2024 Patient: Corine Lottie DOMINGO :1995 A ge:28 Y S ex:Female Address:[facility] [place], [address] * Refills Refill Atomoxetine HCl Capsule, 40 MG, Orally, 90 Capsule, 1 capsule in the morning, Once a day, 90 days, Refills=3 * true * Date: Generated for Laly pacheco/Brandi/Roverto on: 0 10/07/2024 09:34 AM EDT
--- OUTSIDE RECORDS SUMMARY | 2024-09-01 18:11 | XMS_ITS ---
Author Organization The [facility] in [place] Address [address] [place] [address] Care Team Providers Care Specialist Employee Labor Relations Name Role Phone CAREY BANGURA MD Primary Care Provider aCrey Bangura Unavailable [phone] Medications Medication SIG (Take, Route, Frequency, Duration) Notes Start Date End Date Status Methylphenidate HCl 10 MG 1 tablet on empty stomach Orally Q am for 7 days F90.9 09/02/2024 Active Encounters Encounter Location Date Provider Diagnosis [facility] [address] [place] [address] 09/01/2024 Carey Bangura Plan Of Treatment Medication Medication Name Sig Start Date Stop Date Notes Methylphenidate HCl 10 MG 1 tablet on em pty stomach Orally Q am for 7 days 09/02/2024 Progress Notes * Lottie CHILDRESS RDOB: 4 (28 yo F)Acc No.[id number]:09/01/2024 Patient: Corine Lottie DOMINGO :1995 A ge:28 Y S ex:Female Address:[facility] [place], [address] * Refills Start Methylphenidate HCl Tablet, 10 MG, Orally, 7, 1 tablet on empty stomach, Q am, 7 days, Refills=0 * true * Date: Generated for Printi ng/Faxing/eTransmitting on: 0 10/07/2024 09:34 AM EDT
--- NOTE | 2024-10-07 | OP_ITS ---
OPERATION DATE: 10/07/2024 SURGEON: Yanelis Patten M.D. PREOPERATIVE DIAGNOSIS: Left lower lip/oral vestibule mucocele. POSTOPERATIVE DIAGNOSIS: Left lower lip/oral vestibule mucocele. PROCEDURE: Removal of left oral vestibule lesion with layered closure. ANESTHESIA: Lidocaine 1% with 1:100,000 epinephrine. FINDINGS: 5 mm superficial left lower lip mucocele. INDICATIONS: This 28-year-old woman presented with a mucocele of the left lower lip, which was causing difficulty by being bitten when she would eat. PROCEDURE: Patient identified in the holding area and taken back to the OR where she was placed in the supine position. The lip was grasped and an incision planned around the mucocele. Lidocaine 1% with 1:100,000 epinephrine was then infiltrated around the incision, and after waiting adequate time for hemostasis, the lip was prepped with Betadine. An elliptical incision made around the mucocele and dissection carried sharply with the lesion being removed in its entirety. Hemostasis was then achieved with electrocautery and the wound was then closed with interrupted deep 5-0 Vicryl sutures, and interrupted 5-0 Vicryl vertical mattress sutures in the mucosa. The patient was then discharged home in good condition. CHANTEL
--- OUTSIDE RECORDS SUMMARY | 2024-10-07 09:34 | XMS_ITS | Clinical Summary ---
Author Organization [facility] Address [address] [place] [address] Phone Care Team Providers Care Quality Improvement Specialist Name Role Phone Chino Bangura MD Primary Care Provider [phone] Social History Tobacco Use Types Packs/Day Years Used Date Smoking Tobacco: Never Assessed Comments Unknown Sex and Gender Information Value Date Recorded Sex Assigned at Not on file Legal Sex Female 12:24 PM EST Gender Identity Not on file Sexual Orientation Not on file Plan of Treatment Not on file Care Teams Quality Improvement Specialist Relationship Specialty Start Date End Date Chino Bangura MD [address] [facility] [place] [address] PCP - General 06/13/11
--- OUTSIDE RECORDS SUMMARY | 2024-10-07 09:34 | XMS_ITS | Encounter Summary ---
Author Organization [facility] Address [address] [place] [address] Care Team Providers Care Recruiter Name Role Phone Chino Bangura MD Primary Care Provider [phone] Encounter Details Date Type Department Care Team (Late Contact Info) Description 08/30/2022 Abstract [facility] [address] [place] [address] Zofia Oconnor PA [address] [facility] [address] [place], [facility] Social History Tobacco Use Types Packs/Day Years [...] Department Care Team (Late Contact Info) Description 10/25/2024 3:50 PM EDT Office Visit [facility] [place] [facility] [address] [place] [address] Sixto Luna, DO [address] [place] [address] [place] [address] documented as of this encounter Visit Diagnoses Not on filedocumented in this encounter Care Teams Recruiter Relationship Specialty Start Date End Date Chino Bangura MD [address] [facility] [place] [address] PCP - General Family Medicine 08/27/22 documented as of this encounter
--- OUTSIDE RECORDS SUMMARY | 2024-10-07 09:34 | XMS_ITS | Clinical Summary ---
Author Organization [facility] Address [address] [place] [address] Care Team Providers Care Storage Facility Housekeeper Name Role Phone Chino Bangura MD Primary Care Provider [phone] Allergies No known active allergies Medications No known medications Active Problems Problem Noted Date Diagnosed Date Attention-deficit hyperactivity disorder, unspec ified type 09/01/2024 ADHD 08/31/2024 Decreased hearing of both ears 08/31/2024 Irregular periods 08/31/2024 Mucocele of mouth 08/31/2024 Tonsil stone 08/31/2024 Encounters Date Type Department Care Team Description 09/20/2024 Telephone [facility] [address] [place] [address] Cheli Gutierrez MA reschedule surgery 09/01/2024 8:10 AM EDT Office Visit [facility] [address] [place] [address] Yanelis Patten MD Mucocele of lower lip (Primary Dx) 09/01/2024 Bamboo flowsheet [facility] [address] [place] [address] Yanelis Patten MD 09/01/2024 Travel 08/26/2024 Telephone [facility] [address] [place] [address] [place] [address] Patricia Goel LPN 08/26/2024 Clinisync Result Encounter [facility] External Department Unsolicited Maude Luna DO 08/19/2024 Abstract [facility] [place] [facility] [address] [facility] [place] [address] Lisa Ibarra MA 08/12/2024 9:30 AM EDT Office Visit [facility] [address] [place] [address] Maude Luna DO Pain in both lower extremities; Pelvic pain in female 08/12/2024 Bamboo flowsheet [facility] [place] [facility] [address] [place] [address] Maude Luna DO from Last 3 Months [...] Care Team (Late st Contact Info) Description 10/25/2024 3:50 PM EDT Office Visit [facility] [address] [facility] [place] [address] Maude Luna DO [address] [facility] [place] [address] Health Maintenance Due Date Last Done Comments Influenza Vaccine (#1) 2024 12/30/2020, 2017 Cervical Cancer Screening 04/08/2028 HPV/Cotest 04/08/2028 02/12/2022, 02/09/2019 Pap Smear 04/08/2028 04/08/2023, 02/12/2022, 02/08 Procedures Procedure Name Priority Date/Time Associated Diagnosis Comments US PELVIS W/ TRANSVAGINAL 08/26/2024 12:29 AM EDT PAP SMEAR Routine 04/08/2023 12:00 AM EST THINPREP TIS PAP REFLEX HPV MRNA E6/E7 (00044) Routine 02/12/2022 from Last 3 Months or Most Recently Relevant to Health Maintenance Results * US PELVIS W/ TRANSVAGINAL (08/26/2024 12:29 AM EDT) Anatomical Region Laterality Modality Other 08/26/2024 12:2 9 AM EDT Narrative 08/26/2024 12:32 AM EDT The [address] [address] Ultrasound Report Signed Patient: LOTTIE CHILDRESS MR#: [id number] : 1995 Acct:[id number] Age/Sex: 28 / F ADM Date: 08/25/24 Loc: US Attending Dr: Maude Luna D.O. Ordering Physician: Maude Luna D.O. Date of Service: 08/25/24 Procedure(s): US pelvis w/ transvaginal Accession Number(s): [id number] cc: Maude Luna D.O.; Chino Bangura M.D. [address] [address] Patient Name: LOTTIE CHILDRESS MRN: [id number] date: 1995 Sex: F Assigned Patient Location: US Current Patient Location: Accession/Order Number: [id number] Exam Date: 08/26/2024 00:28 Report Date: 08/26/2024 [...] Moreno M.D. 08/26/2024 12:29 AM Dictation Location: [place] [address] Electronically authenticated by: [id number] Y Date: 08/26/2024 00:29 Dictated By: Terrance Moreno M.D. Signed By: 08/26/24 0032 DD/ 0029 TD/TT: Research Professor: Procedure Note Radiology, Radiologist, - 08/26/2024 The [place] [id number] Ultrasound Report Signed Patient: LOTTIE CHILDRESS RMR#: [id number] : 1995Acct:[id number] Age/Sex: 28 / FADM Date: 08/25/24 Loc: US Attending Dr: Maude Luna D.O. Ordering Physician: Maude Luna D.O. Date of Service: 08/25/24 Procedure(s): US pelvis w/ transvaginal Accession Number(s): [id number] cc: Maude Luna D.O.; Chino Bangura M.D. The [place] [id number] Patient Name: LOTTIE CHILDRESS MRN: [id number] date: 1995 Sex: F Assigned Patient Location: Current Patient Location: Accession/Order Number: [id number] Exam Date: 08/26/2024 00:28 Report Date: 08/26/2024 [...] Moreno M.D. 08/26/2024 12:29 AM Dictation Location: [place] [address] Electronically authenticated by: [id number] Y Date: 500:29 Dictated By: Terrance Moreno M.D. Signed By:08/26/24 0032 DD/ 0029 TD/TT: Research Professor: us Maude Jeremy DO [facility] Final Result * Pap Smear (04/08/2023 12:00 AM EST) Swab Cervical swab / Unknown us Maude Jeremy DO LAB CYTOLOGY ORDERABLES Final Re sult EXTERNAL LAB * THINPREP TIS PAP REFLEX HPV MRNA E6/E7 (08557) (02/12/2022) CLINICAL INFORMATION: None given [facility] [...] LAB Comment: NNO, CT(ASCP) CT screening location: [place] [address]. COMMENT SEE COMMENT [facility] EXTERNAL [...] Insurance [facility] Care Teams Storage Facility Housekeeper Relationship Specialty Start Date End Date Chino Bangura MD [address] [facility] [place] [address] PCP - General Family Medicine 08/27/22
--- OUTSIDE RECORDS SUMMARY | 2024-10-07 09:34 | XMS_ITS | Encounter Summary ---
Author Organization [facility] Address [address] [place] [address] Care Team Providers Care Production Grader Name Role Phone Chino Bangura MD Primary Care Provider [phone] Encounter Details Date Type Department Care Team (Late Contact Info) Description 08/19/2024 Abstract [facility] [address] [place] [address] Lisa Ibarra MA Social History Tobacco Use Types Packs/Day Years [...] Description 10/25/2024 3:50 PM EDT Office Visit [facility] [address] [place] [address] Sixto Luna DO [address] [place] [address] documented as of this encounter Visit Diagnoses Not on filedocumented in this encounter Care Teams Production Grader Relationship Specialty Start Date End Date Chino Bangura MD [address] [facility] [place] [address] PCP - General Family Medicine 08/27/22 documented as of this encounter
--- OUTSIDE RECORDS SUMMARY | 2024-10-07 09:35 | XMS_ITS | Patient Health Record ---
Author Organization [facility] [place] Address [address] [place] [address] Care Team Providers Care Radiologist Physician Name Role Phone CAREY BANGURA MD Primary Care Provider [phone] Carey Bangura Unavailable [phone] Allergies No Known Allergies Results Component Value Reference Range Notes US pelvis w/ transvaginal Reviewed date:08/26/2024 06:58:30 PM Interpretation: Performing Lab: Notes/Report: Source Facility: [place] [address] Ultrasound Report Signed Patient: LOTTIE CHILDRESS MR#: [id number] : 1995 Acct:[id number] Age/Sex: 28 / F ADM Date: 08/25/24 Loc: US Attending Dr: Maude Luna D.O. Ordering Physician: Maude Luna D.O. Date of Service: 08/25/24 Procedure(s): US pelvis w/ transvaginal Accession Number(s): [id number] cc: Maude Luna D.O.; Diego Bangura M.D. [place] [id number] Patient Name: LOTTIE CHILDRESS MRN: [id number] date: 1995 Sex: F Assigned Patient Location: US Current Patient Location: Accession/Order Number: [id number] Exam Date: 08/26/2024 00:28 Report Date: 08/26/2024 [...] Moreno M.D. 08/26/2024 12:29 AM Dictation Location: [place] [address] Electronically authenticated by: [id number] Y Date: 08/26/2024 00:29 Dictated By: Terrance Moreno M.D. Signed By: 08/26/24 0032 DD/ 0029 TD/TT: Laminating Machine Operator: [place] [address] Ultrasound Report Signed Patient: JONI CHILDRESS MR#: [id number] : 1995 Acct:[id number] Age/Sex: 28 / F ADM Date: 08/25/24 Loc: US Attending Dr: Maude Luna D.O. Ordering Physician: Maude Luna D.O. Date of Service: 08/25/24 Procedure(s): US pel vis w/ transvaginal Accession Number(s): [id number] cc: Maude Luna D.O. ; Diego Bangura M.D. [place] [id number] Patient Name: LOTTIE CHILDRESS MRN: [id number] date: 1995 Sex: F Assigned Patient Location: Current Patient Location: Accession/Order Numb er: [id number] Exam Date: 08/26/2024 00:28 Report Date: 08/26/2024 [...] Moreno M.D. 08/26/2024 12:29 AM Dictation Location: [place] [address] Electronically authe nticated by: [id number] Y Date: 08/26/2024 00:29 Dictated By: Terrance Moreno M.D. Signed By: 08/26/24 0032 DD/ 0029 TD/TT: Laminating Machine Operator: US right upper quadrant Reviewed date:05/07/2024 12:55:51 PM Interpretation: Performing Lab: Notes/Report: Source Facility: [place] [address] Ultrasound Report Signed Patient: LOTTIE CHILDRESS MR#: [id number] : 1995 Acct:[id number] Age/Sex: 28 / F ADM Date: 05/07/24 Loc: US Attending Dr: Diego Bangura M.D. Ordering Physician: Diego Bangura M.D. Date of Service: 05/07/24 Procedure(s): US right upper quadrant Accession Number(s): [id number] cc: Diego Bangura M.D.; Physician,Non-Staff Joana The [place] [address] Patient Name: LOTTIE CHILDRESS MRN: [id number] date: 1995 Sex: F Assigned Patient Location: Current Patient Location: US Accession/Order Number: [id number] Exam Date: 05/07/2024 10:28 Report Date: 05/07/2024 [...] Renee Ramos M.D.05/07/2024 10:29 AM Dictation Location: [place] [address] Electronically authenticated by: [id number] Y Date: 05/07/2024 10:29 Dictated By: Renee Ramos M.D. Signed By: 05/07/24 1032 DD/ 1029 TD/TT: Laminating Machine Operator: [place] [address] Ultrasound Report Signed Patient: JONI CHILDRESS MR#: [id number] : 1995 Acct:[id number] Age/Sex: 28 / F ADM Date: 05/07/24 Loc: US Attending Dr: Diego Bangura M.D. Ordering Physician: Diego Bangura M.D. Date of Service: 05/07/24 Procedure(s): US rig ht upper quadrant Accession Number(s): [id number] cc: Diego Bangura M.D. ; Physician,Non-Staff Joana The [place] [id number] Patient Name: LOTTIE CHILDRESS MRN: [id number] date: 1995 Sex: F Assigned Patient Location: Current Patient Location: US Accession/Order Numb er: [id number] Exam Date: 05/07/2024 10:28 Report Date: 05/07/2024 [...] Renee Ramos M.D.05/07/2024 10:29 AM Dictation Location: [place] [address] Electronically authe nticated by: [id number] Y Date: 05/07/2024 10:29 Dictated By: Renee Ramos M.D. 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 Problem 714327297 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) Active confirmed Problem 576377255501946 Metatarsalgia, left foot (M77.42) Active confirmed Problem 946863789 Stress fracture, right foot, subsequent encounter for fracture with routine healing (M84.374D) Active confirmed Problem Pain in right foot (098358481332309) Right foot pain (M79.671) Active confirmed Problem Right upper quadrant pain (115742518) Right upper quadrant abdominal pain (R10.11) Active confirmed Problem Chondromalacia (51754049) Chondromalacia of knee, 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) Active confirmed Problem Mucocele of mouth (disorder) (019846500) 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 [address] [place] [address] 08/26/2024 Carey Hoy ADHD F90.9 [facility] [address] [place] [address] 09/01/2024 Carey Hoy [facility] [address] [place] [address] 04/28/2024 Carey Hoy Right upper quadrant abdominal pain R10.11 [facility] [address] [place] [address] 08/04/2024 Carey Hoy ADHD F90.9 and Mucocele [...] Coverage End Date [employer] [address] [address] [place] [address] [id number] Lottie Childress Self - patient is the [...]
--- OUTSIDE RECORDS SUMMARY | 2024-10-07 09:38 | XMS_ITS | CCD ---
Author Organization [facility] Care Team Providers Care Goldsmith Apprentice Name Role Phone JEREMY ., DR SANTORO Admitting Unavailable JEREMY ., DR SANTORO Attending Unavailable JENNIFER ., DR CORTEZ Primary Care Unavailable JEREMY ., DR SANTORO Consulting Unavailable ZIEBER, DR MASOOD Narayanan Consulting Unavailable NATAPRAWIRA, WARD Admitting Unavailable NATAPRAWIRA, WARD Attending Unavailable JENNIFER ., DR CORTEZ Primary Care Unavailable NATAPRAWIRA, WARD Consulting Unavailable NATAPRAWIRA, WARD Admitting Unavailable NATAPRAWIRA, WARD Attending Unavailable JENNIFER ., DR CORTEZ Primary Care Unavailable NATAPRAWIRA, WARD Consulting Unavailable Chino Bangura MD Primary Care Provider [phone] Chino Bangura MD Primary Care Provider [phone] SARITA APPIAH Referring Unavailable SARITA APPIAH Attending Unavailable SARITA APPIAH Referring Unavailable MAUDE LUNA Attending Unavailable YANELIS CAMACHO Attending Unavailable Medications Current Medications Medication Drug Class(es) Dates Sig (Normalized) Sig (Original) atomoxetine 40 mg oral capsule (6 sources) Norepinephrine Reuptake Inhibitor Start: 08-04-2024 End: 09-01-2024 atomoxetine (Strattera) 40 MG capsule 1 (one) time each day at the same time 08/04/2024 09/01/2024 Discontinued (Therapy completed) triamcinolone acetonide 0.001 mg/mg oral paste (3 sources) Corticosteroid Start: 08-04-2024 End: 09-01-2024 triamcinolone (Kenalog) 0.1 % oral paste every 12 (twelve) hours 08/04/2024 09/01/2024 Discontinued (Therapy completed) Completed/Discontinued Medications Medication Drug Class(es) Dates Sig [...] in the morning. 0 09/03/2022 04/08/2023 Discontinued pantoprazole 40 mg delayed release oral tablet (5 sources) Proton Pump Inhibitor Start: 05-25-2024 End: 08-31-2024 take 1 tablet by mouth once daily pantoprazole (ProtoNix) 40 MG EC tablet Take 40 mg by mouth Daily 05/25/2024 08/31/2024 Discontinued (Therapy completed) Vit-DSS-Fe Fum-FA (PNV FE FUM/DOCUSATE/FOLIC ACID PO) (2 sources) End: 04-08-2023 Vit-DSS-Fe Fum-FA (PNV FE FUM/DOCUSATE/FOLI C ACID PO) PNV 0 04/08/2023 Discontinued sucralfate 1000 mg oral tablet (5 sources) Aluminum Complex Start: 04-27-2024 End: 08-31-2024 take 1 tablet by mouth four times daily Carafate 1 g tablet Take 1 tablet 4 times a day by oral route. 04/27/2024 08/31/2024 Discontinued (Therapy completed) venlafaxine 75 mg oral tablet (2 sources) Serotonin and Norepinephrine Reuptake Inhibitor End: 04-08-2023 venlafaxine (Effexor) 75 MG tablet 1 (one) time each day at the same time. 0 04/08/2023 Discontinued Problems Problem Classification Problem Date Documented Date Episodic/Chronic Abdominal pain (2 sources) Pain in female pelvis; Translations: [Pelvic and perineal pain] 08-12-2024 Episodic Acute and chronic tonsillitis (3 sources) Amygdalolith; Translations: [Other chronic diseases of tonsils and adenoids] Onset: 08-31-2024 08-31-2024 Chronic Attention-deficit, conduct, and disruptive behavior disorders (5 sources) Attention deficit hyperactivity disorder; Translations: [Attention-deficit hyperactivity disorder, unspecified type] Onset: 08-31-2024 08-31-2024 Chronic Diabetes or abnormal glucose tolerance complicating ; childbirth; or the puerperium (4 sources) Abnormal glucose complicating ; Translations: [ABNORMAL GLUCOSE COMP ] Onset: 06-06-2022 Episodic Diseases of mouth; excluding dental (5 sources) Mucocele of mouth; Translations: [Other lesions of oral mucosa] Onset: 08-31-2024 08-31-2024 Episodic Menstrual disorders (3 sources) Irregular periods; Translations: [Irregular menstruation, unspecified] Onset: 08-31-2024 08-31-2024 Chronic Other connective tissue disease (2 sources) Pain in bilateral legs; Translations: [Pain in right leg] 08-12-2024 Episodic Other ear and sense organ disorders (3 sources) Decreased hearing ; Translations: [Unspecified hearing loss, bilateral] Onset: 08-31-2024 08-31-2024 Chronic Other non-traumatic joint disorders (2 sources) Pain [...] Test Name Value Interpretation Reference Range Facility US PELVIS W/ TRANSVAGINALon 08-26-2024 [place] [address] Ultrasound Report Signed Patient: LOTTIE CHILDRESS MR#: [id number] : 1995 Acct:[id number] Age/Sex: 28 / F ADM Date: 08/25/24 Loc: US Attending Dr: Maude Luna D.O. Ordering Physician: Maude Luna D.O. Date of Service: 08/25/24 Procedure(s): US pelvis w/ transvaginal Accession Number(s): [id number] cc: Maude Luna D.O.; Chino Bangura M.D. [address] [address] Patient Name: LOTTIE CHILDRESS MRN: [facility]:[id number] date: 1995 Sex: F Assigned Patient Location: Current Patient Location: Accession/Order Number: [id number] Exam Date: 08/26/2024 00:28 Report Date: 08/26/2024 [...] Moreno M.D. 08/26/2024 12:29 AM Dictation Location: [place] [address] Electronically authenticated by: [id number] Y Date: 08/26/2024 00:29 Dictated By: Terrance Moreno M.D. 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 Ordering Physician: Maude Luna D.O. Date of Service: 08/25/24 Procedure(s): US pelvis w/ transvaginal Accession Number(s): [id number] cc: Maude Luna D.O.; Chino Bangura M.D. The [address] [address] Patient Name: LOTTIE CHILDRESS MRN: [facility]:[id number] date: 1995 Sex: F Assigned Patient Location: Current Patient Location: Accession/Order Number: [id number] Exam Date: 08/26/2024 00:28 Report Date: 08/26/2024 [...] Moreno M.D. 08/26/2024 12:29 AM Dictation Location: [place] [address] Electronically authenticated by: [id number] Y Date: 08/26/2024 00:29 Dictated By: Terrance Moreno M.D. 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 There is no acute fracture, dislocation, or OCD present. This is multiple views saved to the permanent record in the [place] office, AP, lateral and sunrise views. Pending sale to [facility] XR Knee - right 3 [facility] Study observation (narrative) [facility] IGP,APTIMA HPV,AGE GDLNon AGE GDLN ACOG TESTING Note . [facility] Comment on above: TESTS RESULT FLAG UN ITS REF RANGE LAB Clinician Provided Cytology Information Source.............Cervix No. of containers..01 ThinPrep Vial Age Algo ACOG Kimberly... FLAG LEGEND: L-Low Normal,H-High Normal,LL-Alert Low,HH-Alert High <-Panic Low,>-Panic High,A-Abnormal,AA-Critical Abnormal Performed at: 01 =G [facility] [address] [facility] [place] [address] Lisbet Rahman MD, IGP, RFX APTIMA HPV ASCU Note . [facility] Comment on above: TESTS RESULT FLAG UN ITS REF RANGE LAB DIAGNOSIS: 02 NEGATIVE FOR INTRAEPITHELIAL LESION OR MALIGNANCY. Specimen adequacy: 02 Satisfactory for evaluation. No endocervical component is identified. Performed by: Derek Schreiber, Die Filer ([facility]) . 02 Note: Note 02 The Pap [...] <-Panic Low,>-Panic High,A-Abnormal,AA-Critical Abnormal Performed at: [address] [address] Lisbet Rahman MD, Performed at: =G - [facility] [address] [id number] Pecan Cleaner: Lisbet Rahman MD, Phone: [phone] Performed at: WB - [facility] [id number] Pecan Cleaner: Lisbet Rahman MD, Phone: [phone] BRUSH-SPATULA CERVIX [facility] CBC AUTO DIFFon 07-20-2022 BASO # 0.1 103/ul Normal 0.0-0.1 [facility] Comment on above: Performed By: #### C BC #### [facility] [address] [place] [address] Dr. Gerardo Joshua Basophils/100 WBC (Bld) 0.5 % Normal 0.2-2.0 [facility] Comment on above: Performed By: #### C BC #### [facility] [address] [place] [address] Dr. Gerardo Joshua EO # 0.2 103/ul Normal 0.0-0.7 [facility] Comment on above: Performed By: #### C BC #### [facility] [address] [place] [address] Dr. Gerardo Joshua Eosinophils/100 WBC (Bld) 1.4 % Normal 0.9-7.0 [facility] Comment on above: Performed By: #### C BC #### [facility] [address] [place] [address] Dr. Gerardo Joshua Erythrocyte distribution width (RBC) [Ratio] 12.8 % Normal 11.0-15.0 [facility] Comment on above: Performed By: #### C BC #### [facility] [address] [place] [address] Dr. Gerardo Joshua Hematocrit (Bld) [Volume fraction] 37.3 % Normal 36.0-48.0 [facility] Comment on above: Performed By: #### C BC #### [facility] [address] [place] [address] Dr. Gerardo Joshua Hemoglobin (Bld) [Mass/Vol] 12.7 g/dL Normal 12.0-16.0 [facility] Comment on above: Performed By: #### C BC #### [facility] [address] [place] [address] Dr. Gerardo Joshua IG # 0.06 10e3/ul Critically high 0.00-0.03 [facility] Comment on above: Performed By: #### C BC #### [facility] [address] [place] [address] Dr. Gerardo Joshua IG % 0.5 % Normal 0.0-0.5 [facility] Comment on above: Performed By: #### C BC #### [facility] [address] [place] [address] Dr. Gerardo Joshua LYMPH # 2.3 103/ul Normal 1.2-3.8 [facility] Comment on above: Performed By: #### C BC #### [facility] [address] [place] [address] Dr. Gerardo Joshua Lymphocytes/100 WBC (Bld) 18.4 % Critically low 20.5-60.0 [facility] Comment on above: Performed By: #### C BC #### [facility] [address] [place] [address] Dr. Gerardo Joshua MANUAL DIFF REQ NO Normal [facility] Comment on above: Performed By: #### C BC #### [facility] [address] [place] [address] Dr. Gerardo Joshua MCH (RBC) [Entitic mass] 30.6 pg Normal 26.7-34.0 [facility] Comment on above: Performed By: #### C BC #### [facility] [address] [place] [address] [address] Gerardo Joshua MCHC (RBC) [Mass/Vol] 34.0 g/dL Normal 29.9-35.2 [facility] Comment on above: Performed By: #### C BC #### [facility] [address] [place] [address] [address] Gerardo Joshua MCV (RBC) [Entitic vol] 89.9 fL Normal 81.0-99.0 [facility] Comment on above: Performed By: #### C BC #### [facility] [address] [place] [address] [address] Gerardo Joshua MONO # 0.9 103/ul Critically high 0.3-0.8 [facility] Comment on above: Performed By: #### C BC #### [facility] [address] [place] [address] Dr. Gerardo Joshua Monocytes/100 WBC (Bld) 7.3 % Normal 1.7-12.0 [facility] Comment on above: Performed By: #### C BC #### [facility] [address] [place] [address] Dr. Gerardo Joshua NEUT # 8.9 103/ul Critically high 1.4-6.5 [facility] Comment on above: Performed By: #### C BC #### [facility] [address] [place] [address] Dr. Gerardo Joshua Neutrophils/100 WBC (Bld) 71.9 % Normal 43.0-75.0 [facility] Comment on above: Performed By: #### C BC #### [facility] [address] [place] [address] Dr. Gerardo Joshua Platelet mean volume (Bld) [Entitic vol] 10.2 fL Normal 9.5-13.5 [facility] Comment on above: Performed By: #### C BC #### [facility] [address] [place] [address] Dr. Gerardo Joshua PLT 199 103/ul Normal 150-450 [facility] Comment on above: Performed By: #### C BC #### [facility] [address] [place] [address] [address] Gerardo Joshua RBC 4.15 106/ul Critically low 4.20-5.40 [facility] Comment on above: Performed By: #### C BC #### [facility] [address] [place] [address] Dr. Gerardo Joshua WBC 12.4 103/ul Critically high 4.0-11.0 [facility] Comment on above: Performed By: #### C BC #### [facility] [address] [place] [address] Dr. Gerardo Joshua CBC AUTO DIFFon 07-19-2022 BASO # 0.0 103/ul Normal 0.0-0.1 [facility] Comment on above: Performed By: #### C BC #### [facility] [address] [place] [address] Dr. Gerardo Joshua Basophils/100 WBC (Bld) 0.4 % Normal 0.2-2.0 [facility] Comment on above: Performed By: #### C BC #### [facility] [address] [place] [address] Dr. Gerardo Joshua EO # 0.2 103/ul Normal 0.0-0.7 [facility] Comment on above: Performed By: #### C BC #### [facility] [address] [place] [address] Dr. Gerardo Joshua Eosinophils/100 WBC (Bld) 1.4 % Normal 0.9-7.0 [facility] Comment on above: Performed By: #### C BC #### [facility] [address] [place] [address] Dr. Gerardo Joshua Erythrocyte distribution width (RBC) [Ratio] 12.7 % Normal 11.0-15.0 [facility] Comment on above: Performed By: #### C BC #### [facility] [address] [place] [address] Dr. Gerardo Joshua Hematocrit (Bld) [Volume fraction] 41.6 % Normal 36.0-48.0 [facility] Comment on above: Performed By: #### C BC #### [facility] [address] [place] [address] [address] Gerardo Joshua Hemoglobin (Bld) [Mass/Vol] 14.0 g/dL Normal 12.0-16.0 [facility] Comment on above: Performed By: #### C BC #### [facility] [address] [place] [address] [address] Gerardo Joshua IG # 0.07 10e3/ul Critically high 0.00-0.03 [facility] Comment on above: Performed By: #### C BC #### [facility] [address] [place] [address] [address] Gerardo Joshua IG % 0.7 % Critically high 0.0-0.5 [facility] Comment on above: Performed By: #### C BC #### [facility] [address] [place] [address] Dr. Gerardo Joshua LYMPH # 2.1 103/ul Normal 1.2-3.8 [facility] Comment on above: Performed By: #### C BC #### [facility] [address] [place] [address] Dr. Gerardo Joshua Lymphocytes/100 WBC (Bld) 19.2 % Critically low 20.5-60.0 [facility] Comment on above: Performed By: #### C BC #### [facility] [address] [place] [address] Dr. Gerardo Joshua MANUAL DIFF REQ NO Normal [facility] Comment on above: Performed By: #### C BC #### [facility] [address] [place] [address] [address] Gerardo Joshua MCH (RBC) [Entitic mass] 30.0 pg Normal 26.7-34.0 [facility] Comment on above: Performed By: #### C BC #### [facility] [address] [place] [address] Dr. Gerardo Joshua MCHC (RBC) [Mass/Vol] 33.7 g/dL Normal 29.9-35.2 [facility] Comment on above: Performed By: #### C BC #### [facility] [address] [place] [address] Dr. Gerardo Joshua MCV (RBC) [Entitic vol] 89.3 fL Normal 81.0-99.0 [facility] Comment on above: Performed By: #### C BC #### [facility] [address] [place] [address] Dr. Gerardo Joshua MONO # 0.7 103/ul Normal 0.3-0.8 [facility] Comment on above: Performed By: #### C BC #### [facility] [address] [place] [address] Dr. Gerardo Joshua Monocytes/100 WBC (Bld) 6.8 % Normal 1.7-12.0 [facility] Comment on above: Performed By: #### C BC #### [facility] [address] [place] [address] Dr. Gerardo Joshua NEUT # 7.7 103/ul Critically high 1.4-6.5 [facility] Comment on above: Performed By: #### C BC #### [facility] [address] [place] [address] Dr. Gerardo Joshua Neutrophils/100 WBC (Bld) 71.5 % Normal 43.0-75.0 [facility] Comment on above: Performed By: #### C BC #### [facility] [address] [place] [address] Dr. Gerardo Joshua Platelet mean volume (Bld) [Entitic vol] 10.0 fL Normal 9.5-13.5 [facility] Comment on above: Performed By: #### C BC #### [facility] [address] [place] [address] Dr. Gerardo Joshua PLT 229 103/ul Normal 150-450 [facility] Comment on above: Performed By: #### C BC #### [facility] [address] [place] [address] Dr. Gerardo Joshua RBC 4.66 106/ul Normal 4.20-5.40 [facility] Comment on above: Performed By: #### C BC #### [facility] [address] [place] [address] Dr. Gerardo Joshua WBC 10.7 103/ul Normal 4.0-11.0 [facility] Comment on above: Performed By: #### C BC #### [facility] [address] [place] [address] Dr. Gerardo Joshua DRUG SCREEN RAPID (URINE)on 07-19-2022 AMP Negative Normal NEGATIVE [facility] Comment on above: Performed By: #### D RUGRPD #### [facility] [address] [place] [address] Dr. Gerardo Joshua BAR Negative Normal NEGATIVE [facility] Comment on above: Performed By: #### D RUGRPD #### [facility] [address] [place] [address] Dr. Gerardo Joshua BUP Negative Normal NEGATIVE [facility] Comment on above: Performed By: #### D RUGRPD #### [facility] [address] [place] [address] Dr. Gerardo Joshua BZO Negative Normal NEGATIVE [facility] Comment on above: Performed By: #### D RUGRPD #### [facility] [address] [place] [address] Dr. Gerardo Joshua ABBEY Negative Normal NEGATIVE [facility] Comment on above: Performed By: #### D RUGRPD #### [facility] [address] [place] [address] Dr. Gerardo Joshua CUT-OFFS SEE BELOW Normal [facility] [...] RUGRPD #### [facility] [address] [place] [address] Dr. Gerardo Joshua DRUG CUT HEADER DRUG CLASS TEST SYSTEM CUT-OFF CONCENTRATIONS ARE FOLLOWS: Normal [facility] Comment on above: Performed By: #### D RUGRPD #### [facility] [address] [place] [address] Dr. Gerardo Joshua mAMP Negative Normal NEGATIVE [facility] Comment on above: Performed By: #### D RUGRPD #### [facility] [address] [place] [address] [address] Gerardo Joshua MTD Negative Normal NEGATIVE [facility] Comment on above: Performed By: #### D RUGRPD #### [facility] [address] [place] [address] Dr. Gerardo Joshua OPI Negative Normal NEGATIVE [facility] Comment on above: Performed By: #### D RUGRPD #### [facility] [address] [place] [address] Dr. Gerardo Joshua OXY Negative Normal NEGATIVE [facility] Comment on above: Performed By: #### D RUGRPD #### [facility] [address] [place] [address] Dr. Gerardo Joshua PCP Negative Normal NEGATIVE [facility] Comment on above: Performed By: #### D RUGRPD #### [facility] [address] [place] [address] Dr. Gerardo Joshua PPX Negative Normal NEGATIVE [facility] Comment on above: Performed By: #### D RUGRPD #### [facility] [address] [place] [address] Dr. Gerardo Joshua TCA Negative Normal NEGATIVE [facility] Comment on above: Performed By: #### D RUGRPD #### [facility] [address] [address] [address] Gerardo Joshua THC Negative Normal NEGATIVE [facility] Comment on above: Performed By: #### D RUGRPD #### [facility] [address] [place] [address] Dr. Gerardo Joshua TYPE AND SCREENon 07-19-2022 TYPE AND SCREEN Negative Normal [facility] Comment on above: Performed By: #### T NS #### [facility] [address] [address] [address] Gerardo Joshua US PREG PLACENTAon US PREG PLACENTA EXAMINATION: US PREG PLACENTA [...] 06-06-2022 Glucose [Mass/Vol] 86 mg/dL Normal 74-106 [facility] Comment on above: Performed By: #### G TT3P #### [facility] [address] [address] [address] Gerardo Joshua Glucose [Mass/Vol] 159 mg/dL Normal [facility] Comment on above: Performed By: #### G TT3P #### [facility] [address] [address] [address] Gerardo Joshua Glucose [Mass/Vol] 137 mg/dL Normal [facility] Comment on above: Performed By: #### G TT3P #### [facility] [address] [address] [address] Gerardo Joshua Glucose [Mass/Vol] 53 mg/dL Normal [facility] Comment on above: Performed By: #### G TT3P #### [facility] [address] [address] [address] Gerardo Joshua CBC AUTO DIFFon 05-28-2022 BASO # 0.0 103/ul Normal 0.0-0.1 [facility] Comment on above: Performed By: #### C BC #### [facility] [address] [address] [address] Gerardo Joshua Basophils/100 WBC (Bld) 0.5 % Normal 0.2-2.0 [facility] Comment on above: Performed By: #### C BC #### [facility] [address] [place] [address] Dr. Gerardo Joshua EO # 0.2 103/ul Normal 0.0-0.7 [facility] Comment on above: Performed By: #### C BC #### [facility] [address] [place] [address] Dr. Gerardo Joshua Eosinophils/100 WBC (Bld) 1.9 % Normal 0.9-7.0 [facility] Comment on above: Performed By: #### C BC #### [facility] [address] [place] [address] Dr. Gerardo Joshua Erythrocyte distribution width (RBC) [Ratio] 13.2 % Normal 11.0-15.0 [facility] Comment on above: Performed By: #### C BC #### [facility] [address] [place] [address] Dr. Gerardo Joshua Hematocrit (Bld) [Volume fraction] 36.1 % Normal 36.0-48.0 [facility] Comment on above: Performed By: #### C BC #### [facility] [address] [place] [address] Dr. Gerardo Joshua Hemoglobin (Bld) [Mass/Vol] 12.1 g/dL Normal 12.0-16.0 [facility] Comment on above: Performed By: #### C BC #### [facility] [address] [place] [address] Dr. Gerardo Joshua IG # 0.03 10e3/ul Normal 0.00-0.03 [facility] Comment on above: Performed By: #### C BC #### [facility] [address] [place] [address] Dr. Gerardo Joshua IG % 0.4 % Normal 0.0-0.5 [facility] Comment on above: Performed By: #### C BC #### [facility] [address] [place] [address] Dr. Gerardo Joshua LYMPH # 1.6 103/ul Normal 1.2-3.8 [facility] Comment on above: Performed By: #### C BC #### [facility] [address] [place] [address] Dr. Gerardo Joshua Lymphocytes/100 WBC (Bld) 20.1 % Critically low 20.5-60.0 [facility] Comment on above: Performed By: #### C BC #### [facility] [address] [place] [address] Dr. Gerardo Joshua MANUAL DIFF REQ NO Normal [facility] Comment on above: Performed By: #### C BC #### [facility] [address] [place] [address] Dr. Gerardo Joshua MCH (RBC) [Entitic mass] 30.0 pg Normal 26.7-34.0 [facility] Comment on above: Performed By: #### C BC #### [facility] [address] [place] [address] Dr. Gerardo Joshua MCHC (RBC) [Mass/Vol] 33.5 g/dL Normal 29.9-35.2 [facility] Comment on above: Performed By: #### C BC #### [facility] [address] [place] [address] Dr. Gerardo Joshua MCV (RBC) [Entitic vol] 89.6 fL Normal 81.0-99.0 [facility] Comment on above: Performed By: #### C BC #### [facility] [address] [place] [address] Dr. Gerardo Joshua MONO # 0.5 103/ul Normal 0.3-0.8 [facility] Comment on above: Performed By: #### C BC #### [facility] [address] [place] [address] Dr. Gerardo Joshua Monocytes/100 WBC (Bld) 6.8 % Normal 1.7-12.0 [facility] Comment on above: Performed By: #### C BC #### [facility] [address] [place] [address] Dr. Gerardo Joshua NEUT # 5.4 103/ul Normal 1.4-6.5 [facility] Comment on above: Performed By: #### C BC #### [facility] [address] [place], [place] [address] Dr. Gerardo Joshua Neutrophils/100 WBC (Bld) 70.3 % Normal 43.0-75.0 [facility] Comment on above: Performed By: #### C BC #### [facility] [address] [place], [place] [address] Dr. Gerardo Joshua Platelet mean volume (Bld) [Entitic vol] 9.3 fL Critically low 9.5-13.5 [facility] Comment on above: Performed By: #### C BC #### [facility] [id number] Gerardo Joshua PLT 230 103/ul Normal 150-450 [facility] Comment on above: Performed By: #### C BC #### [facility] [address] [address] [address] Gerardo Joshua RBC 4.03 106/ul Critically low 4.20-5.40 [facility] Comment on above: Performed By: #### C BC #### [facility] [address] [address] [address] Gerardo Joshua WBC 7.7 103/ul Normal 4.0-11.0 [facility] Comment on above: Performed By: #### C BC #### [facility] [id number] Gerardo Joshua GLUCOSE - 1HRon 05-28-2022 Glucose [Mass/Vol] 154 mg/dL Critically high 74-106 [facility] Comment on above: Performed By: #### G LU1HR #### [facility] [id number] Gerardo Joshua Complete Blood Count Auto Di ffon 12-05-2020 Basophils (Bld) [#/Vol] 0.1 10*3/uL Normal 0.0-0.2 [facility] Comment on above: Order Comment: Name Collection Type:: Clean-Voided Midstream Result Comment: PERF ORMED BY: [place] [address] [place] [address] PATHOLOGIST INDUSTRY OPERATIONS INVESTIGATOR FIDENCIO LOW M.D. Performed By: #### A DDONUAPLUS, OBUDS #### [facility] [address] [place] [address] [place] Basophils/100 WBC (Bld) 0.5 % Normal . [facility] Comment on above: Order Comment: Name Collection Type:: Clean-Voided Midstream Performed By: #### A DDONUAPLUS, OBUDS #### [address] Eosinophils (Bld) [#/Vol] 0.1 10*3/uL Normal 0.0-0.45 [facility] Comment on above: Order Comment: Name Collection Type:: Clean-Voided Midstream Performed By: #### A DDONUAPLUS, OBUDS #### [address] Eosinophils/100 WBC (Bld) 0.9 % Normal . [facility] Comment on above: Order Comment: Name Collection Type:: Clean-Voided Midstream Performed By: #### A DDONUAPLUS, OBUDS #### [address] Erythrocyte distribution width (RBC) [Ratio] 13.1 % Normal 11.9-15.3 [facility] Comment on above: Order Comment: Name Collection Type:: Clean-Voided Midstream Performed By: #### A DDONUAPLUS, OBUDS #### [address] Hematocrit (Bld) [Volume fraction] 33.9 % Low 34.0-46.4 [facility] Comment on above: Order Comment: Name Collection Type:: Clean-Voided Midstream Performed By: #### A DDONUAPLUS, OBUDS #### [address] Hemoglobin (Bld) [Mass/Vol] 11.8 g/dL Normal 11.8-15.4 [facility] Comment on above: Order Comment: Name Collection Type:: Clean-Voided Midstream Performed By: #### A DDONUAPLUS, OBUDS #### [address] Lymphocytes (Bld) [#/Vol] 1.5 10*3/uL Normal 1.00-4.8 [facility] Comment on above: Order Comment: Name Collection Type:: Clean-Voided Midstream Performed By: #### A DDONUAPLUS OBUDS #### [address] Lymphocytes/100 WBC (Bld) 13.5 % Normal . [facility] Comment on above: Order Comment: Name Collection Type:: Clean-Voided Midstream Performed By: #### A DDONUAPLUS OBUDS #### [address] MCH (RBC) [Entitic mass] 31.9 pg Normal 24.7-34.3 [facility] Comment on above: Order Comment: Name Collection Type:: Clean-Voided Midstream Performed By: #### A DDONUAPLUS OBUDS #### [address] MCV (RBC) [Entitic vol] 91.6 fL Normal 80-100 [facility] Comment on above: Order Comment: Name Collection Type:: Clean-Voided Midstream Performed By: #### A DDONUAPLUS OBUDS #### [address] Mean Corpuscular HGB Conc 34.9 g/dL Normal 32.0-35.0 [facility] Comment on above: Order Comment: Name Collection Type:: Clean-Voided Midstream Performed By: #### A DDONUAPLUS, OBUDS #### [address] Monocytes (Bld) [#/Vol] 0.7 10*3/uL Normal 0.0-0.8 [facility] Comment on above: Order Comment: Name Collection Type:: Clean-Voided Midstream Performed By: #### A DDONUAPLUS OBUDS #### [place] [address] [place] Monocytes/100 WBC (Bld) 6.2 % Normal . [facility] Comment on above: Order Comment: Name Collection Type:: Clean-Voided Midstream Performed By: #### A DDONUAPLUS, OBUDS #### [facility] [address] [place] [address] [place] Neutrophils (Bld) [#/Vol] 9.0 10*3/uL High 1.8-7.7 [facility] Comment on above: Order Comment: Name Collection Type:: Clean-Voided Midstream Performed By: #### A DDONUAPLUS, OBUDS #### [facility] [address] [place] [address] [place] Neutrophils/100 WBC (Bld) 78.9 % Normal . [facility] Comment on above: Order Comment: Name Collection Type:: Clean-Voided Midstream Performed By: #### A DDONUAPLUS, OBUDS #### [place] [address] [place] Nucleated RBC/100 WBC (Bld) [Ratio] 0.0 % Normal 0-0.5 [facility] Comment on above: Order Comment: Name Collection Type:: Clean-Voided Midstream Performed By: #### A DDONUAPLUS, OBUDS #### [place] [address] [place] Platelet mean volume (Bld) [Entitic vol] 10.1 fL Normal 6.3-10.7 [facility] Comment on above: Order Comment: Name Collection Type:: Clean-Voided Midstream Performed By: #### A DDONUAPLUS, OBUDS #### [facility] [address] [place] [address] [place] Platelets (Bld) [#/Vol] 140 10*3/uL Low 150-450 [facility] Comment on above: Order Comment: Name Collection Type:: Clean-Voided Midstream Performed By: #### A DDONUAPLUS, OBUDS #### [place] [address] [place] RBC (Bld) [#/Vol] 3.70 10*6/uL Normal 3.60-5.00 [facility] Comment on above: Order Comment: Name Collection Type:: Clean-Voided Midstream Performed By: #### A DDONUAPLUS, OBUDS #### [facility] [address] WBC (Bld) [#/Vol] 11.5 10*3/uL High 4.5-11.0 [facility] Comment on above: Order Comment: Name Collection Type:: Clean-Voided Midstream Performed By: #### A DDONUAPLUS, OBUDS #### [facility] [address] ABO/RH Typeon 12-04-2020 ABO and Rh group Nom (Bld) Blood group A Rh(D) positive Normal [facility] Comment on above: Result Comment: PERF ORMED BY: [place] [address] PATHOLOGIST INDUSTRY OPERATIONS INVESTIGATOR FIDECNIO LOW M.D. COVID-19 Antigenon 1 COVID-19 Antigen [...] its performance Pernell Disclaimer characteristic determined by [employer] and Pernell Disclaimer validated at [facility]. This Pernell Disclaimer test has not [...] is terminated or revoked sooner. PERFORMED BY: [facility] [place] [address] PATHOLOGIST INDUSTRY OPERATIONS INVESTIGATOR FIDENCIO LOW M.D. Normal [facility] Comment on above: Performed By: #### S NATALIO COLMENARES-Renan GIMENEZ #### [address] Complete Blood Count Auto Di ffon 12-04-2020 Basophils (Bld) [#/Vol] 0.0 10*3/uL Normal 0.0-0.2 [facility] Comment on above: Result Comment: PERF ORMED BY: [place] [address] PATHOLOGIST INDUSTRY OPERATIONS INVESTIGATOR FIDENCIO LOW M.D. Performed By: #### C BC #### [address] Basophils/100 WBC (Bld) 0.4 % Normal . [facility] Comment on above: Performed By: #### C BC #### [address] Eosinophils (Bld) [#/Vol] 0.1 10*3/uL Normal 0.0-0.45 [facility] Comment on above: Performed By: #### C BC #### [address] Eosinophils/100 WBC (Bld) 0.7 % Normal . [facility] Comment on above: Performed By: #### C BC #### [address] Erythrocyte distribution width (RBC) [Ratio] 13.1 % Normal 11.9-15.3 [facility] Comment on above: Performed By: #### C BC #### [address] Hematocrit (Bld) [Volume fraction] 37.4 % Normal 34.0-46.4 [facility] Comment on above: Performed By: #### C BC #### [address] Hemoglobin (Bld) [Mass/Vol] 13.1 g/dL Normal 11.8-15.4 [facility] Comment on above: Performed By: #### C BC #### [facility] [address] [place] [address] [place] Lymphocytes (Bld) [#/Vol] 2.0 10*3/uL Normal 1.00-4.8 [facility] Comment on above: Performed By: #### C BC #### [facility] [address] Lymphocytes/100 WBC (Bld) 19.4 % Normal . [facility] Comment on above: Performed By: #### C BC #### [facility] [address] MCH (RBC) [Entitic mass] 31.7 pg Normal 24.7-34.3 [facility] Comment on above: Performed By: #### C BC #### [address] MCV (RBC) [Entitic vol] 90.4 fL Normal 80-100 [facility] Comment on above: Performed By: #### C BC #### [address] Mean Corpuscular HGB Conc 35.1 g/dL High 32.0-35.0 [facility] Comment on above: Performed By: #### C BC #### [address] Monocytes (Bld) [#/Vol] 0.8 10*3/uL Normal 0.0-0.8 [facility] Comment on above: Performed By: #### C BC #### [place] [address] [place] Monocytes/100 WBC (Bld) 8.3 % Normal . [facility] Comment on above: Performed By: #### C BC #### [address] Neutrophils (Bld) [#/Vol] 7.3 10*3/uL Normal 1.8-7.7 [facility] Comment on above: Performed By: #### C BC #### [facility] [address] Neutrophils/100 WBC (Bld) 71.2 % Normal . [facility] Comment on above: Performed By: #### C BC #### [facility] [address] Nucleated RBC/100 WBC (Bld) [Ratio] 0.1 % Normal 0-0.5 [facility] Comment on above: Performed By: #### C BC #### [facility] [address] Platelet mean volume (Bld) [Entitic vol] 10.0 fL Normal 6.3-10.7 [facility] Comment on above: Performed By: #### C BC #### [address] Platelets (Bld) [#/Vol] 155 10*3/uL Normal 150-450 [facility] Comment on above: Performed By: #### C BC #### [address] RBC (Bld) [#/Vol] 4.13 10*6/uL Normal 3.60-5.00 [facility] Comment on above: Performed By: #### C BC #### [address] WBC (Bld) [#/Vol] 10.2 10*3/uL Normal 4.5-11.0 [facility] Comment on above: Performed By: #### C BC #### [address] Comprehensive Metabolic Pane charan 12-04-2020 Albumin [Mass/Vol] 2.6 g/dL Low 3.2-5.5 [facility] Comment on above: Performed By: #### C MP #### [address] Albumin/Globulin [Mass ratio] 0.9 {ratio} Normal [facility] Comment on above: Performed By: #### C MP #### [address] [place] [address] [place] ALP [Catalytic activity/Vol] 129 U/L High 32-92 [facility] Comment on above: Performed By: #### C MP #### [address] ALT [Catalytic activity/Vol] 54 U/L Normal 10-60 [facility] Comment on above: Performed By: #### C MP #### [address] AST [Catalytic activity/Vol] 36 U/L Normal 10-42 [facility] Comment on above: Performed By: #### C MP #### [facility] [address] [place] [address] Bilirubin [Mass/Vol] 0.5 mg/dL Normal 0.3-1.2 [facility] Comment on above: Performed By: #### C MP #### [address] Calcium [Mass/Vol] 8.8 mg/dL Normal 8.2-10.2 [facility] Comment on above: Performed By: #### C MP #### [facility] [address] [place] [address] Chloride [Moles/Vol] 108 mmol/L Normal 95-114 [facility] Comment on above: Performed By: #### C MP #### [facility] [address] [place] [address] CO2 [Moles/Vol] 20.4 mmol/L Low 22.0-30.0 [facility] Comment on above: Performed By: #### C MP #### [facility] [address] [place] [address] Creatinine [Mass/Vol] 0.81 mg/dL Normal 0.44-1.[address] [facility] Comment on above: Performed By: #### C MP #### [facility] [address] [place] [address] Creatinine Clr Calc Pharmacy 97.66 Normal [facility] Comment on above: Result Comment: PERF ORMED BY: [place] [address] PATHOLOGIST INDUSTRY OPERATIONS INVESTIGATOR FIDENCIO LOW M.D. Performed By: #### C MP #### [address] Estimated GFR ( Mady > 60 Normal [facility] Comment on above: Result Comment: GFR estimated reference range: According to KDOQI guidelines, <60 ml/min/1.73m2 is sufficient to diagnose a patient with chronic kidney disease. Performed By: #### C MP #### [address] Estimated GFR (Non- Am > 60 Normal [facility] Comment on above: Performed By: #### C MP #### [address] Globulin (S) [Mass/Vol] 2.8 g/dL Normal [facility] Comment on above: Performed By: #### C MP #### [address] Glucose [Mass/Vol] 86 mg/dL Normal 70-100 [facility] Comment on above: Result Comment: [place] om Glucose Reference Range is dependent on time and content of last meal. Glucose of more than 200 mg/dL in a nonstressed, ambulatory subject supports the diagnosis of Diabetes Mellitus. ADA recommended reference range Performed By: #### C MP #### [address] Potassium [Moles/Vol] 3.4 mmol/L Low 3.5-5.[address] [facility] Comment on above: Performed By: #### C MP #### [address] Protein [Mass/Vol] 5.4 g/dL Low 6.1-7.9 [facility] Comment on above: Performed By: #### C MP #### [address] Sodium [Moles/Vol] 138 mmol/L Normal 136-146 [facility] Comment on above: Performed By: #### C MP #### [facility] [address] [place] [id number] [facility] Urea nitrogen [Mass/Vol] 9 mg/dL Normal 9-23 [facility] Comment on above: Performed By: #### C MP #### [facility] [address] [place] [address] [place] Charan 12-04-2020 L Specimen: [id number] Received: 12/04/20 Status: AADN Lara Num: [id number] Spec Type: Surgical Subm Dr: Gwen Jhaveri DO Tissues: A Placenta - 3rd Trimester (Greater than 28 weeks) (PLACENTA AND CORD) Procedures: HE Stain/6, Gross/Micro L5 Patient Age/Sex Location Account Attending Physician Lottie Childress 25/F 3S [id number] Yonis Augustin DO SPEC NUM: [id number] RECD: 12/04/20 STATUS: ADAN LARA NUM: [id number] CLAUDINE: 12/04/20- SUBM DR: Gwen Jhaveri, DO ENTERED: 12/04/20-0 [facility] DR: GRIS TYPE: Surgical DEPT: S ENTERED BY: [id number] RECV BY: [id number] ORDERED: HE Stain/6, Gross/Micro L5 ORDERED: HE [...] cm aggregate of red gelatinous blood clot. Supervisor Typesetting sections are submitted in 6 cassettes as follows: A1 - end of the umbilical cord and membrane roll A2 - Maternal end of the umbilical cord and membrane roll Specimen: [id number] Received: 12/04/20 Status: ADNA Hernadezchito Num: [id number] Spec Type: Surgical Subm Dr: Gwen Jhaveri DO Tissues: A Placenta - 3rd Trimester (Greater than 28 weeks) (PLACENTA AND CORD) Procedures: KAREN Stain/6, Gross/Micro L5 Patient: Lottie Childress [id number] (Continued) Specimen: [id number] Received: 12/04/20 (Continued) Gross Description (Continued) Signed (signature on file) Fidencio Low MD 12/07/20 1714 Specimen: [id number] Received: 12/04/20 Status: ADAN Lara Num: [id number] Spec Type: Surgical Subm Dr: Gwen Jhaveri DO Tissues: A Placenta - 3rd Trimester (Greater than 28 weeks) (PLACENTA AND CORD) Procedures: HE Stain/6, Gross/Micro L5 Patient: Lottie Childress [id number] (Continued) Specimen: [id number] Received: 12/04/20 (Continued) Gross Description (Continued) A3 - Central placental disc A4 - Peripheral placental disc A5 - Edematous umbilical cord A6 - Lesions (SM/JS) Microscopic Description Six glass slides with H E stained material have been examined. The microscopic findings support the above pathologic diagnosis. [id number] Specimen: [id number] Received: 12/04/20 Status: ADAN Lara Num: [id number] Spec Type: Surgical Subm Dr: Gwen Jhaveri, DO Tissues: A Placenta - 3rd Trimester (Greater than 28 weeks) (PLACENTA AND CORD) Procedures: HE Stain/6, Gross/Micro L5 (more content not included)... Normal [facility] Protein Creat Ratio Ur Rando mon 12-04-2020 Creatinine, Urine (Random) 82.8 mg/dL Normal [facility] Comment on above: Result Comment: No r eference range established Performed By: #### P ROCRERAT #### [facility] [address] [place] [address] Protein (U) [Mass/Vol] 354 mg/dL High 0-[address] [facility] Comment on above: Performed By: #### P ROCRERAT #### [facility] [address] Urine Protein/Creatinine Ratio 4275 mg/g{Cre} High 0-200 [facility] Comment on above: Result Comment: PERF ORMED BY: [place] [address] PATHOLOGIST INDUSTRY OPERATIONS INVESTIGATOR FIDENCIO LOW M.D. Performed By: #### P ROCRERAT #### [facility] [address] [place] [address] [place] RPR w/rfx to Quant TP Abson 12-04-2020 RPR, Rfx Quant RPR Non-Reactive Normal Non Reactive [facility] Comment on above: Result Comment: Perf ormed at: - [facility] [address] [id number] Pecan Cleaner: Andre Toledo PhD, Phone: [phone] PERFORMED BY: [place] [address] PATHOLOGIST INDUSTRY OPERATIONS INVESTIGATOR FIDENCIO LOW M.D. Performed By: #### A DDNIKHIL OBUDS #### [address] Pernell Ag Negativeon 12-05-19 21 Pernell Ag Negative Negative Normal Negative [facility] Comment on above: Result Comment: This is a duplicate Pernell SARS Antigen (NASH) result to be used for statistical tracking purpose only. PERFORMED BY: [place] [address] PATHOLOGIST INDUSTRY OPERATIONS INVESTIGATOR FIDENCIO LOW M.D. Performed By: #### S DARRIAN COVID-19 PERNELL #### [address] Complete Blood Count Auto Di ffon 12-03-2020 Basophils (Bld) [#/Vol] 0.1 10*3/uL Normal 0.0-0.2 [facility] Comment on above: Result Comment: PERF ORMED BY: [place] [address] PATHOLOGIST INDUSTRY OPERATIONS INVESTIGATOR FIDENCIO LOW M.D. Performed By: #### C BC #### [address] Basophils/100 WBC (Bld) 0.8 % Normal . [facility] Comment on above: Performed By: #### C BC #### [place] [address] [place] Eosinophils (Bld) [#/Vol] 0.2 10*3/uL Normal 0.0-0.45 [facility] Comment on above: Performed By: #### C BC #### [place] [address] [place] Eosinophils/100 WBC (Bld) 1.5 % Normal . [facility] Comment on above: Performed By: #### C BC #### [address] Erythrocyte distribution width (RBC) [Ratio] 12.8 % Normal 11.9-15.3 [facility] Comment on above: Performed By: #### C BC #### [address] Hematocrit (Bld) [Volume fraction] 39.0 % Normal 34.0-46.4 [facility] Comment on above: Performed By: #### C BC #### [address] Hemoglobin (Bld) [Mass/Vol] 13.7 g/dL Normal 11.8-15.4 [facility] Comment on above: Performed By: #### C BC #### [address] Lymphocytes (Bld) [#/Vol] 1.7 10*3/uL Normal 1.00-4.8 [facility] Comment on above: Performed By: #### C BC #### [address] Lymphocytes/100 WBC (Bld) 16.5 % Normal . [facility] Comment on above: Performed By: #### C BC #### [address] MCH (RBC) [Entitic mass] 31.8 pg Normal 24.7-34.3 [facility] Comment on above: Performed By: #### C BC #### [address] MCV (RBC) [Entitic vol] 90.3 fL Normal 80-100 F [facility] Comment on above: Performed By: #### C BC #### [address] Mean Corpuscular HGB Conc 35.2 g/dL High 32.0-35.0 [facility] Comment on above: Performed By: #### C BC #### [facility] [address] [place] [address] [place] Monocytes (Bld) [#/Vol] 0.9 10*3/uL High 0.0-0.8 [facility] Comment on above: Performed By: #### C BC #### [facility] [address] [place] [address] [place] Monocytes/100 WBC (Bld) 9.0 % Normal . [facility] Comment on above: Performed By: #### C BC #### [facility] [address] [place] [address] [place] Neutrophils (Bld) [#/Vol] 7.4 10*3/uL Normal 1.8-7.7 [facility] Comment on above: Performed By: #### C BC #### [facility] [address] Neutrophils/100 WBC (Bld) 72.2 % Normal . [facility] Comment on above: Performed By: #### C BC #### [facility] [address] [place] [address] [place] Nucleated RBC/100 WBC (Bld) [Ratio] 0.0 % Normal 0-0.5 [facility] Comment on above: Performed By: #### C BC #### [facility] [address] [place] [address] [place] Platelet mean volume (Bld) [Entitic vol] 10.2 fL Normal 6.3-10.7 [facility] Comment on above: Performed By: #### C BC #### [facility] [address] [place] [address] [place] Platelets (Bld) [#/Vol] 165 10*3/uL Normal 150-450 [facility] Comment on above: Performed By: #### C BC #### [facility] [address] [place] [address] [place] RBC (Bld) [#/Vol] 4.32 10*6/uL Normal 3.60-5.00 [facility] Comment on above: Performed By: #### C BC #### [facility] [address] [place] [address] WBC (Bld) [#/Vol] 10.3 10*3/uL Normal 4.5-11.0 [facility] Comment on above: Performed By: #### C BC #### [address] Comprehensive Metabolic Pane charan 12-03-2020 Albumin [Mass/Vol] 2.6 g/dL Low 3.2-5.5 [facility] Comment on above: Performed By: #### C MP #### [address] Albumin/Globulin [Mass ratio] 0.9 {ratio} Normal [facility] Comment on above: Performed By: #### C MP #### [address] ALP [Catalytic activity/Vol] 143 U/L High 32-92 [facility] Comment on above: Performed By: #### C MP #### [address] ALT [Catalytic activity/Vol] 61 U/L High 10-60 [facility] Comment on above: Performed By: #### C MP #### [address] AST [Catalytic activity/Vol] 41 U/L Normal 10-42 [facility] Comment on above: Performed By: #### C MP #### [address] Bilirubin [Mass/Vol] 0.7 mg/dL Normal 0.3-1.2 [facility] Comment on above: Performed By: #### C MP #### [address] Calcium [Mass/Vol] 9.0 mg/dL Normal 8.2-10.2 [facility] Comment on above: Performed By: #### C MP #### [address] Chloride [Moles/Vol] 107 mmol/L Normal 95-114 [facility] Comment on above: Performed By: #### C MP #### [facility] [address] CO2 [Moles/Vol] 20.8 mmol/L Low 22.0-30.0 [facility] Comment on above: Performed By: #### C MP #### [facility] [address] Creatinine [Mass/Vol] 0.89 mg/dL Normal 0.44-1.[address] [facility] Comment on above: Performed By: #### C MP #### [facility] [address] Creatinine Clr Calc Pharmacy 88.89 [facility] Comment on above: Result Comment: PERF ORMED BY: [place] [address] PATHOLOGIST INDUSTRY OPERATIONS INVESTIGATOR FIDENCIO LOW M.D. Performed By: #### C MP #### [address] Estimated GFR ( Mady > 60 [facility] Comment on above: Result Comment: GFR estimated reference range: According to KDOQI guidelines, <60 ml/min/1.73m2 is sufficient to diagnose a patient with chronic kidney disease. Performed By: #### C MP #### [address] Estimated GFR (Non- Am > 60 [facility] Comment on above: Performed By: #### C MP #### [address] Globulin (S) [Mass/Vol] 3.0 g/dL Normal [facility] Comment on above: Performed By: #### C MP #### [address] Glucose [Mass/Vol] 90 mg/dL Normal 70-100 [facility] Comment on above: Result Comment: [place] Glucose Reference Range is dependent on time and content of last meal. Glucose of more than 200 mg/dL in a nonstressed, ambulatory subject supports the diagnosis of Diabetes Mellitus. ADA recommended reference range Performed By: #### C MP #### [facility] [address] Potassium [Moles/Vol] 3.8 mmol/L Normal 3.5-5.[address] [facility] Comment on above: Performed By: #### C MP #### [facility] [address] Protein [Mass/Vol] 5.6 g/dL Low 6.1-7.9 [facility] Comment on above: Performed By: #### C MP #### [facility] [address] Sodium [Moles/Vol] 137 mmol/L Normal 136-146 [facility] Comment on above: Performed By: #### C MP #### [address] Urea nitrogen [Mass/Vol] 11 mg/dL Normal - [facility] Comment on above: Performed By: #### C MP #### [place] [address] [place] Dipstick and Microscopicon 0 12-03-2020 Appearance (U) Clear Normal Clear [facility] Comment on above: Order Comment: Name Collection Type:: Clean-Voided Midstream Performed By: #### A DDONUAPLUS, OBUDS #### [facility] [address] [place] [address] [place] Bacteria,Urine None Seen Normal None Seen [facility] Comment on above: Order Comment: Name Collection Type:: Clean-Voided Midstream Performed By: #### A DDONUAPLUS, OBUDS #### [facility] [address] [place] [address] [place] Bilirubin,Urine Negative Normal Negative [facility] Comment on above: Order Comment: Name Collection Type:: Clean-Voided Midstream Performed By: #### A DDONUAPLUS, OBUDS #### [facility] [address] [place] [address] [place] Color (U) Yellow Normal Yellow [facility] Comment on above: Order Comment: Name Collection Type:: Clean-Voided Midstream Performed By: #### A DDONUAPLUS OBUDS #### [facility] [address] [place] [address] Glucose Ql (U) Normal Normal Normal [facility] Comment on above: Order Comment: Name Collection Type:: Clean-Voided Midstream Performed By: #### A DDONUAPLUS OBUDS #### [place] [address] [place] Hyaline Casts,Urine 0-8 Normal 0-8 [facility] Comment on above: Order Comment: Name Collection Type:: Clean-Voided Midstream Result Comment: PERF ORMED BY: [place] [address] PATHOLOGIST INDUSTRY OPERATIONS INVESTIGATOR FIDENCIO LOW M.D. Performed By: #### A DDONUAISHA OBUDS #### [address] Ketones Ql (U) Negative Normal Negative [facility] Comment on above: Order Comment: Name Collection Type:: Clean-Voided Midstream Performed By: #### A DDONUAPLUS OBUDS #### [address] Leukocyte esterase Test strip Ql (U) Negative Normal Negative [facility] Comment on above: Order Comment: Name Collection Type:: Clean-Voided Midstream Performed By: #### A DDONUAPLUS OBUDS #### [place] [address] [place] Nitrite,Urine Negative Normal Negative [facility] Comment on above: Order Comment: Name Collection Type:: Clean-Voided Midstream Performed By: #### A DDONUAPLUS OBUDS #### [address] Occult Blood,Urine 1+ High Negative [facility] Comment on above: Order Comment: Name Collection Type:: Clean-Voided Midstream Result Comment: PERF ORMED BY: [address] [place] [address] PATHOLOGIST INDUSTRY OPERATIONS INVESTIGATOR FIDENCIO LOW M.D. Performed By: #### A DDONUAPLUS OBUDS #### [address] pH (U) 7.0 [pH] Normal 5.0-9.0 [facility] Comment on above: Order Comment: Name Collection Type:: Clean-Voided Midstream Performed By: #### A DDONUAPLUS OBUDS #### [address] Protein (U) [Mass/Vol] 300 mg/dL High Negative [facility] Comment on above: Order Comment: Name Collection Type:: Clean-Voided Midstream Performed By: #### A DDONUAPLUS, OBUDS #### [address] RBC,Urine 3-4 Normal 0-4 [facility] Comment on above: Order Comment: Name Collection Type:: Clean-Voided Midstream Performed By: #### A DDONUAPLUS, OBUDS #### [address] Specificy [place],Urine 1.012 Normal 1.001-1.030 [facility] Comment on above: Order Comment: Name Collection Type:: Clean-Voided Midstream Performed By: #### A DDONUAPLUS, OBUDS #### [address] Squamous Epithelial Cell,Urine 0-1 Normal 0-2 [facility] Comment on above: Order Comment: Name Collection Type:: Clean-Voided Midstream Performed By: #### A DDONUAPLUS, OBUDS #### [address] Urobilinogen,Urine Normal Normal Normal [facility] Comment on above: Order Comment: Name Collection Type:: Clean-Voided Midstream Performed By: #### A DDONUAPLUS, OBUDS #### [address] [place] [address] [place] WBC LM.HPF (Urine sed) [#/Area] 0 /[HPF] Normal 0-4 [facility] Comment on above: Order Comment: Name Collection Type:: Clean-Voided Midstream Performed By: #### A EAN OBUDS #### [address] OB Urine Drug Screen (NO THC )on 12-03-2020 Amphetamine Screen,Urine Negative Normal Negative [facility] Comment on above: Performed By: #### A EAN OBUDS #### [address] Barbiturate Screen,Urine Negative Normal Negative [facility] Comment on above: Performed By: #### A EAN OBUDS #### [address] Benzodiazepines Screen,Urine Negative Normal Negative [facility] Comment on above: Performed By: #### A EAN OBUDS #### [place] [address] [place] Cocaine Screen,Urine Negative Normal Negative [facility] Comment on above: Performed By: #### A EAN OBUDS #### [place] [address] [place] Opiate Screen,Urine Negative Normal Negative [facility] Comment on above: Performed By: #### A EAN OBUDS #### [place] [address] [place] Phencyclidine Screen, Urine Negative Normal Negative [facility] Comment on above: Result Comment: Thes e are unconfirmed results and should not be used for legal purposes. Drug Cut-Off Concentration: AMPH 1000 ng/mL SHELLY 200 ng/mL SHARMIN 200 ng/mL COCM 300 ng/mL OP 300 ng/mL PCP 25 ng/mL PERFORMED BY: [place] [address] PATHOLOGIST INDUSTRY OPERATIONS INVESTIGATOR FIDENCIO LOW M.D. Performed By: #### A DDONUAPLUS, OBUDS #### [facility] [address] [place] [id number] [place] Strep B Cultureon 11-24-2020 Strep B Culture No Group B Beta Streptococcus Isolated 3 Days PERFORMED BY: [place] [address] PATHOLOGIST INDUSTRY OPERATIONS INVESTIGATOR FIDENCIO LOW M.D. [facility] Comment on above: Performed By: #### C USTB #### [facility] [address] [place] [address] Vital Signs Date Time Vital Sign Value Performing Clinician Faci lity 09-01-2024 08:11-0400 Body height 165 cm Yanelis Camacho MD Work Phone: [facility] 09-01-2024 08:11-0400 Body mass index (BMI) [Ratio] 21.83 kg/m2 Yanelis Camacho MD Work Phone: [facility] 09-01-2024 08:11-0400 Body weight 59.42 kg Yanelis Camacho MD Work Phone: [facility] 09-01-2024 08:11-0400 Diastolic blood pressure 77 mm[Hg] Yanelis Camacho MD Work Phone: [facility] 09-01-2024 08:11-0400 Heart rate 88 /min Yanelis Camacho MD Work Phone: [facility] 09-01-2024 08:11-0400 Systolic blood pressure 113 mm[Hg] Yanelis Camacho MD Work Phone: [facility] 08-12-2024 10:10-0400 Body mass index (BMI) [Ratio] 20.82 kg/m2 Maude Jeremy DO Work Phone: [facility] 08-12-2024 10:10-0400 Body weight 58.51 kg Maude Jeremy DO Work Phone: [facility] 08-12-2024 10:10-0400 Diastolic blood pressure 68 mm[Hg] Maude Jeremy DO Work Phone: [facility] 08-12-2024 10:10-0400 Systolic blood pressure 102 mm[Hg] Maude Jeremy DO Work Phone: [facility] 04-08-2024 14:57-0500 Body height 167.6 cm Sarita Appiah DO Work Phone: [facility] 04-08-2024 14:57-0500 Body mass index (BMI) [Ratio] 22.11 kg/m2 Sarita Appiah DO Work Phone: [facility] 04-08-2024 14:57-0500 Body weight 62.14 kg Sarita Appiah DO Work Phone: [facility] 04-08-2023 14:48-0500 Body height 167.6 cm Maude Jeremy DO Work Phone: [facility] 04-08-2023 14:48-0500 Body mass index (BMI) [Ratio] 21.27 kg/m2 Maude Jeremy DO Work Phone: [facility] 04-08-2023 14:48-0500 Body weight 59.78 kg Maude Jeremy DO Work Phone: [facility] 04-08-2023 14:48-0500 Diastolic blood pressure 60 mm[Hg] Maude Jeremy DO Work Phone: [facility] 04-08-2023 14:48-0500 Systolic blood pressure 100 mm[Hg] Maude Jeremy DO Work Phone: [facility] Healthcare Encounters Encounter Date Encounter Type Care Provider Facility Start: 09-01-2024 End: 09-01-2024 Bamboo flowsheet Yanelis Camacho MD Work Phone: [facility] Start: 09-01-2024 End: 09-01-2024 Bamboo flowsheet Yanelis Camacho MD Work Phone: [facility] Start: 09-01-2024 End: 09-01-2024 Office outpatient new 45 minutes Yanelis Camacho MD Work Phone: [facility] Comment on above: Mucocele of lower li p (Primary Dx) Start: 09-01-2024 End: 09-01-2024 ambulatory YANELIS CAMACHO Not Available Start: 08-26-2024 End: 08-26-2024 Clinisync Result Encounter Maude Jeremy DO Work Phone: [facility] Unsolicited Start: 08-26-2024 End: 08-26-2024 Clinisync Result Encounter Maude Jeremy DO Work Phone: [facility] Unsolicited Start: 08-12-2024 End: 08-12-2024 Bamboo flowsheet Maude Jeremy DO Work Phone: [facility] Start: 08-12-2024 End: 08-12-2024 Bamboo flowsheet Maude Jeremy DO Work Phone: [facility] Start: 08-12-2024 End: 08-12-2024 Office [...] 04-08-2023 End: 04-08-2023 Patient encounter procedure Maude Jeremy DO Work Phone: [facility] Start: 04-08-2023 End: 04-08-2023 Periodic preventive med est patient 18-39 yrs Maude Jeremy DO Work Phone: [facility] Comment on above: Well woman exam with routine gynecological exam Start: 04-08-2023 Clinisync Result Encounter Maude Jeremy DO Work Phone: [facility] External Department Unsolicited Start: 04-08-2023 Clinisync Result Encounter Maude Luna DO Work Phone: [facility] External Department Unsolicited Start: 07-19-2022 End: 07-20-2022 Evaluation and management of inpatient DR MAUDE LUNA . Facility: Start: 06-06-2022 End: 06-07-2022 ambulatory [facility] Facility: Start: 05-28-2022 End: 05-29-2022 ambulatory [facility] Facility: Procedures Date Procedure Procedure Detail Performing Clinician Start: 08-26-2024 US PELVIS W/ TRANSVAGINAL Maude Luna DO Work Phone: Start: 04-08-2024 Radiologic examinati on knee 3 views Sarita Appiah DO Work Phone: Start: 04-08-2023 IGP,APTIMA HPV,AGE GDLN Maude Luna DO Work Phone: Start: 04-08-2023 Microscopic observat ion [Identifier] in Cervix by Cyto stain Sarita Appiah DO Work Phone: Plan of Treatment Date Care Activity Detail Author Start: 04-08-2028 Screening for malign ant neoplasm of cervix [facility] Start: 11-08-2024 Influenza vaccination Influenz a Vaccine (Season Ended) [facility] Start: 10-25-2024 End: 10-25-2024 Patient encounter procedure 10/25/2024 3:50 PM EDT Office Visit [facility] [address] [place] [address] Maude Luna DO [address] [place] [address] [facility] Start: 10-01-2024 End: 10-01-2024 Patient encounter procedure 10/01/2024 1:30 PM EDT Office Visit [facility] [place] [address] [place] [address] Yanelis Camacho MD [address] [facility] [place] [address] [facility] Start: 09-08-2024 End: 09-08-2024 Patient encounter procedure 09/08/2024 3:30 PM EDT Consult [facility] [address] [place] [address] Maude Luna, DO [address] [place], [place] [id number] [facility] Start: 09-01-2024 End: 09-01-2024 Patient encounter procedure [facility] Comment on above: Arrived Start: 08-12-2024 End: 08-12-2025 DHEA DHEA Lab Routine Pain in both lower extremities Pelvic pain in female Expected: 08/12/2024 (Approximate), Expires: 08/12/2025 [facility] Comment on above: Expected: 08/12/2024 (Approximate), Expires: 08/12/2025 Start: 08-12-2024 End: 08-12-2025 US Pelvis US Pelvis w/ TV Imaging Routine Pain in both lower extremities Pelvic pain in female Expected: 08/12/2024, Expires: 08/12/2025 [facility] Comment on above: Expected: 08/12/2024 , Expires: 08/12/2025 Start: 08-12-2024 End: 08-12-2024 Patient encounter procedure 08/12/2024 9:30 AM EDT Office Visit [facility] [address] [place] [address] Maude Luna, DO [address] [place] [address] Arrived [facility] Comment on above: Arrived Start: 04-13-2024 End: 04-13-2024 Patient encounter procedure 04/13/2024 2:00 PM EST Office Visit [facility] [address] [place] [address] Maude Luna, [address] [place] [address] [facility] Start: 2023 Influenza vaccination Influenza Vacc ine (#1) [facility] Start: 11-08-2022 Influenza vaccination Influenza Vacc ine (#1) [facility] CBC W Auto Different ial panel - Blood CBC and differential Lab Routine Pain in both lower extremities Pelvic pain in female Ordered: 08/12/2024 [facility] Comment on above: Ordered: 08/12/2024 DHEA-sulfate DHEA-sulfate Lab Routine Pain in both lower extremities Pelvic pain in female Ordered: 08/12/2024 [facility] Comment on above: Ordered: 08/12/2024 Estradiol Estradiol Lab Ro utine Pain in both lower extremities Pelvic pain in female Ordered: 08/12/2024 [facility] Comment on above: Ordered: 08/12/2024 Follicle stimulating hormone Follicle stimulating hormone Lab Routine Pain in both lower extremities Pelvic pain in female Ordered: 08/12/2024 [facility] Comment on above: Ordered: 08/12/2024 hCG, quantitative, hCG, quantitative, Lab Routine Pain in both lower extremities Pelvic pain in female Ordered: 08/12/2024 [facility] Work Phone: Comment on above: Ordered: 08/12/2024 Hemoglobin A1c/Hemoglobin.total in Blood Hemoglobin A1c Lab Routine Pain in both lower extremities Pelvic pain in female Ordered: 08/12/2024 [facility] Comment on above: Ordered: 08/12/2024 Luteinizing hormone Luteinizing hormone Lab Routine Pain in both lower extremities Pelvic pain in female Ordered: 08/12/2024 [facility] Comment on above: Ordered: 08/12/2024 Progesterone Progesterone Lab Routine Pain in both lower extremities Pelvic pain in female Ordered: 08/12/2024 [facility] Comment on above: Ordered: 08/12/2024 Thyrotropin [Units/volume] in Serum or Plasma TSH Lab Routine Pain in both lower extremities Pelvic pain in female Ordered: 08/12/2024 [facility] Comment on above: Ordered: 08/12/2024 Thyroxine [...] Payer Category Payer Private Health Insurance [id number] 2019 Private Health Insurance [id number] 1993 Unknown [id number] 1993 Unknown [id number] [id number] 1993 Unknown [id number] [id number] [id number] 1993 Unknown [id number] [id number] 1993 Unknown [id number] [id number] 1993 Unknown [id number] [id number] 1993 Unknown [id number] [id number] 1959 Unknown [id number] Social History Date Type Detail Facility Start: 08-30-2022 End: 04-08-2024 Tobacco smoking status [place] Never smoked tobacco [facility] Start: 04-08-2023 End: 08-12-2024 Alcohol intake Lifetime non-drinker (finding) [facility] Start: 08-30-2022 End: 04-08-2024 History of Social function [facility] Start: 08-30-2022 End: 04-08-2024 Tobacco use panel [facility] Start: 08-30-2022 Education 17 [facility] Start: 08-30-2022 Alcohol Comment Caffeine intake: non e [facility] Start: 1995 Sex Assigned At Female [facility] Start: 05-22-2022 Gender identity Identifies as female gender (finding) [facility] Start: 04-08-2024 Tobacco use and exposure Smokeless t obacco non-user [facility] History of Present illness Narrative 09-01-2024 Yanelis Camacho MD - 09/01/2024 8:10 AM EDT Note Date & Type Note Facility 09-01-2024 History of Presen t illness Narrative Subjective Patient ID: Lottie Childress is a 28 y.o. female who presents for Mouth Lesions (Mouth abscess/) Pt reports she has had a left lower lip bump for 3 mo. Occas bites causing pain. Tx with a paste that did not help. Review of Systems All other systems reviewed and are negative. Family History Problem Relation Name Age of Onset Colon cancer Maternal Grandfather Active Ambulatory Problems Diagnosis Date Noted ADHD 08/31/2024 Decreased hearing of both ears 08/31/2024 Irregular periods 08/31/2024 Mucocele of mouth 08/31/2024 Tonsil stone 08/31/2024 Attention-deficit hyperactivity disorder, unspecified type 09/01/2024 Resolved Ambulatory Problems Diagnosis Date Noted No Resolved Ambulatory Problems Past Medical History: Diagnosis Date Anxiety Vaginal delivery ([facility]) 12/04/2020 Varicella zoster Vitamin D deficiency Past Surgical History: Procedure Laterality Date CT GUIDED PERCUTANEOUS BIOPSY BONE DEEP 07/11/2011 CT GUIDED PERCUTANEOUS BIOPSY BONE DEEP 07/11/2011 SHOULDER SURGERY Right x2 VAGINAL DELIVERY 2020 VAGINAL DELIVERY 2022 No Known Allergies Current Outpatient Medications on File Prior to Visit Medication Sig Dispense Refill [DISCONTINUED] triamcinolone (Kenalog) 0.1 % oral paste every 12 (twelve) hours [DISCONTINUED] atomoxetine (Strattera) 40 MG capsule 1 (one) time each day at the same time [DISCONTINUED] Carafate 1 g tablet Take 1 tablet 4 times a day by oral route. [DISCONTINUED] pantoprazole (ProtoNix) 40 MG EC tablet Take 40 mg by mouth Daily No current facility-administered medications on file prior to visit. Objective Last Recorded Vitals Vitals: 09/01/24 0811 BP: 113/77 Pulse: 88 ENT Physical Exam Constitutional Appearance: patient appears well-developed, well-nourished and well-groomed, Head and Face Appearance: head appears normal and face appears atraumatic; Ear Ear Canals: right ear canal normal; left ear canal normal; Tympanic Membranes: right tympanic membrane normal; left tympanic membrane normal; Nose External Nose: nares patent bilaterally; external nose normal; Internal Nose: septum normal; Oral Cavity/Oropharynx Tongue: normal; Oral mucosa: normal; Hard palate: normal; Soft palate: normal; Tonsils: normal; OC/OP comments: LT lower lip mucocele Neck Neck: neck normal; neck palpation normal; Thyroid: thyroid normal; Respiratory Inspection: breathing unlabored; normal breathing rate; Auscultation: breath sounds are clear; Cardiovascular Inspection: extremities are warm and well perfused; no peripheral edema present; Auscultation: regular rate and rhythm; Assessment/Plan Diagnoses and all orders for this visit: Mucocele of lower lip Lt lower lip mucocele. I will arrange for removal under local. Pt expresses understanding of risk of infection and recurrent mucocele documented in this encounter [facility] History of Present illness Narrative 08-12-2024 Petty Barba LPN - 08/12/2024 9:30 AM EDT Note Date [...] nursing note reviewed. Exam conducted with a ceramic saw tender present. Vitals: Estimated body mass index is [...] feet throbbing. Patient voiced that due to anglican beliefs control will not be an option. Patient will be referred to PT for pelvic pain & LE pain and can discuss possible surgical management in the future as pain is impacting ADL's and quality of life. Documented by Petty Barba LPN on behalf of: Maude Luna DO documented in this encounter [facility] History of Present illness Narrative 04-08-2024 Gina Kings - 04/08/2024 2:30 PM EST Note Date [...] years while growing up. 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 She has two children, younger in [...] saved to the permanent record in the [place] office, AP, lateral and sunrise views. ASSESSMENT [...] History of Present illness Narrative 04-08-2023 Renee BlairDEANDRE hi - 04/08/2023 2:30 PM EST Note [...] nursing note reviewed. Exam conducted with a ceramic saw tender present. Vitals: Estimated body mass index is [...] Maude Luna DO documented in this encounter [facility] Healthcare Evaluation note Note Date & Type Note Facility Evaluation note Diagnosis Well woman exam with routine gynecological exam Routine gynecological examination documented in this encounter [facility] Healthcare Evaluation note Note Date & Type Note Facility Evaluation note Diagnosis Acute pain of right knee- Primary documented in this encounter [facility] Healthcare Evaluation note Note Date & Type Note Facility Evaluation note Diagnosis Pain in both lower extremities Pelvic pain in female Unspecified symptom associated with female genital organs documented in this encounter [facility] Healthcare Evaluation note Note Date & Type Note Facility Evaluation note Diagnosis Mucocele of lower lip- Primary Other and unspecified diseases of the oral soft tissues documented in this encounter [facility] Healthcare Summary Purpose Family History No Family History Records FoundNo Family History Records FoundNo Family History Records Found Advance Directives No Advanced Directives Records FoundNo Advanced Directives Records FoundNo Advanced Directives Records Found Additional Source Comments INFORMATION SOURCE (unrecogn ized section and content) DATE CREATED AUTHOR 01/11/2021 [facility] DATE CREATED AUTHOR AUTHOR'S ORGANIZ ATION 07/20/[address] [facility] DATE CREATED AUTHOR AUTHOR'S ORGANIZ ATION 09/02/2024 [facility] EPIC Reason for Visit (unrecogniz ed section and content) Reason Comments Gynecologic Exam Reason Comments Pain Reason Comments Leg Pain Pt present today for pain in legs/feet after delivering in 2022. Pt wants to check for potential ovarian cyst. Reason Comments Mouth Lesions Mouth abscess Care Teams (unrecognized sec tion and content) [employer] Relationship Specialty Start Date End Date Chino Bangura MD [address] [place] [address] PCP - General Family Medicine 08/27/22 [employer] Relationship Specialty Start Date End Date Chino Bangura MD [address] [facility] [place] [address] PCP - General Family Medicine 08/27/22 [employer]ice Relationship Specialty Start Date End Date Chino Bangura MD [address] [facility] [place] [address] PCP - General Family Medicine 08/27/22 [employer] App[employer]ice Relationship Specialty Start Date End Date Chino Bangura MD [address] [facility] [place] [address] PCP - General Family Medicine 08/27/22 [employer] App[employer]ice Relationship Specialty Start Date End Date Chino Bangura MD [address] [facility] [place] [address] PCP - General Family Medicine 08/27/22 [employer] App[employer]ice Relationship Specialty Start Date End Date Chino Bangura MD [address] [facility] [place] [address] PCP - General Family Medicine 08/27/22 [employer] App[employer]ice Relationship Specialty Start Date End Date Chino Bangura MD [address] [facility] [place] [address] PCP - General Family Medicine 08/27/22 FOR [...] BE BASED ON THE PRIMARY CLINICAL RECORDS. [facility]. provides no warranty or guarantee of the accuracy or completeness of information in this document.
[2024-10-07 09:44] VITALS: BP 113/57; PULSE 68; TEMP 36.3; O2SAT 94
--- NOTE | 2024-10-07 10:00 | PC.NURSE ---
vital signs- 122/63 78 16 93 pre; 118/75 79 16 100 post
[2024-10-07] MEDS: BACITRACIN OINTMENT 28.4 GM TUBE 1 APPLIC TOPICAL (10:17)
[2024-10-07] MEDS: LIDOCAINE HCL 1%-EPINEPHRINE 1:100,000 20 ML MDV 4 ML INJ (10:17)
== END 2024-10-07 10:33 | disposition home or self-care (01) ==
PROVIDERS: PCP Family Medicine; Visit Provider Otolaryngology
PROC: (CPT 40812; principal; 2024-10-07 10:00)
DX: K13.0 Diseases of lips (principal)
CPT/HCPCS: 40812; 88304